=== PATIENT | female | born 1980 | race Caucasian/White ===

== ENCOUNTER 2017-05-10 21:26 | Inpatient (IN) | payer MEDICARE, MEDICAID ==
[2017-05-10] MEDS ORDERED: Albuterol Sulfate 2.5 mg/3 ml Neb ONE (21:37)
[2017-05-10] MEDS ORDERED: Albuterol Sulfate 2.5 mg/0.5 ml Neb ONE ×2 (21:37→21:38)
[2017-05-10] MEDS ORDERED: Albuterol Sulfate 1.25 MG/3 ML NEB ONE (21:38)
[2017-05-10 21:53] LABS: Sodium 138 mmol/L (135-148)
[2017-05-10 21:54] LABS: Mode BIPAP; Modified Allen's Test POSITIVE; Pressure Support 10 cmH2O
[2017-05-10] MEDS ORDERED: Dexamethasone 4 mg/ml Vial ONE (22:29)
[2017-05-10] MEDS ORDERED: Magnesium Sulfate 2 GM/100 ML BAG ONE (22:29)
[2017-05-10 22:45] LABS: PTT 26.1 SEC (22.9-36.1); Prothrombin Time 13.7 SEC (12.0-14.7)
[2017-05-10] MEDS ORDERED: Ondansetron HCl/PF 4 MG/2 ML Vial ONE (22:52)
[2017-05-10 22:56] LABS: Hematocrit 43.3 % (36.0-47.0); Mean Platelet Volume 9.8 fL (7.4-10.4); Red Blood Cell (RBC) Count 4.69 mill/uL (4.20-5.40); White Blood Cell (WBC) Count 23.8 thou/uL (4.8-10.8)
[2017-05-10 23:00] LABS: ALT (SGPT) 33 U/L (8-55); AST (SGOT) 21 U/L (5-34); Alkaline Phosphatase 109 U/L (40-150); Anion Gap 19 mmol/L (10-20); BUN (Urea Nitrogen) 24 mg/dL (7.0-18.7); Bilirubin, Total 0.2 mg/dL (0.2-1.2); CK (CPK) 105 U/L (29-168); Calc. Creatinine Clearance 0 mL/min (70-130); Calcium 9.4 mg/dL (7.8-10.44); Carbon Dioxide 22 mmol/L (22-29); Chloride 97 mmol/L (98-107); Estimated GFR-MDRD 40; Globulin 3.4 g/dL (2.4-3.5); Lipase 22 U/L (8-78); Protein, Total 7.5 g/dL (6.0-8.3)
[2017-05-10 23:03] LABS: Band 5 % (5-11); Neutrophil 84 % (42-75); Troponin I Less than 0.010 ng/mL (< 0.028)
--- NOTE | 2017-05-10 23:10 | RAD ---
EXAM: ONE VIEW CHEST 05/10/17 COMPARISON: 04/07/17 HISTORY: Dyspnea. FINDINGS: Normal cardiac silhouette. Pulmonary vessels and hilum are normal. No mass. No consolidation. No pne umothorax or osseous abnormalities. Lungs are hyperinflated. IMPRESSION: 1. No acute cardiopulmonary process. 2. Hyperinflation. COPD. POS: [facility]
[2017-05-10] MEDS ORDERED: Insulin Regular 300 UNITS/3 ML VIAL ONE (23:42)
[2017-05-11] MEDS ORDERED: Ondansetron HCl/PF 4 MG/2 ML Vial IVP PRN (00:56)
[2017-05-11] MEDS ORDERED: Sodium Chloride 0.9% 1,000 ML IV SCH (00:56)
[2017-05-11] MEDS ORDERED: Ondansetron ODT 4 MG TAB SL PRN (00:56)
[2017-05-11] MEDS ORDERED: Dextrose 50% Abboject 50 ML SYRINGE IVP PRN (01:39)
[2017-05-11] MEDS ORDERED: Dextrose 5% in Water 1,000 ML IV PRN (01:39)
[2017-05-11] MEDS ORDERED: HumaLOG 300 UNITS/3 ML VIAL SC PRN (01:39)
[2017-05-11 01:55] VITALS: BMI 39.9
[2017-05-11] MEDS: Levothyroxine Sodium 175 MCG TAB PO SCH (06:15)
[2017-05-11] MEDS: Mometasone/Formoterol 120 PUFF INHALER INH SCH ×2 (06:57→18:41)
[2017-05-11] MEDS ORDERED: Dexamethasone 10 MG/ML VIAL SLOW IVP SCH (09:00)
[2017-05-11] MEDS: Fluticasone Propionate Nasal Spray 16 gm Bottle NASAL SCH (09:36)
[2017-05-11] MEDS: Furosemide 40 MG TAB PO SCH (09:37)
[2017-05-11] MEDS: Gabapentin 100 MG CAP PO SCH ×3 (09:37→20:05)
[2017-05-11] MEDS: Lisinopril 10 MG TAB PO SCH (09:39)
[2017-05-11] MEDS ORDERED: HYDROcodone/Acetaminophen 10/325 mg Tablet PO PRN ×2 (10:46)
--- NOTE | 2017-05-11 11:11 | CON ---
DATE OF CONSULTATION: 05/11/2017 CONSULTING PHYSICIAN: Dr. High. REASON FOR CONSULTATION: Acute respiratory failure related to COPD exacerbation. HISTORY OF PRESENT ILLNESS: The patient presented to the hospital last night with shortness of pat th. She called 911 and EMS insisted that she will be transported. She was briefly on BiPAP in the ER, but has not been on BiPAP since coming to the floor. She states she feels better this morning a nd she wants to go home. PAST MEDICAL HISTORY: 1. COPD/asthma. 2. Tobacco abuse. 3. Bronchitis. 4. Hypertension. 5. Diabetes mellitus. 6. Hypothyroidism. 7. Hyperlipidemia. 8. Seizure disorder. PAST SURGICAL HISTORY: None. ALLERGIES: Multiple and include CEPHALOSPORINS, AMOXICILLIN, ASPIRIN, PENICILLIN, SHELLFISH, SULFA DRUGS. MEDICATIONS PRIOR TO ADMISSION: Albuterol, Zoloft, potassium chloride, furosemide, Synthroid, glipi zide, lisinopril, metformin, levothyroxine, Dilantin, iron, Risperdal, Valium. SOCIAL HISTORY: Smokes one half pack per day, previously smoked more, does not consume alcohol, and does not use illicit drugs. FAMILY MEDICAL HISTORY: Unremarkable. REVIEW OF SYSTEMS: Otherwise, negative. PHYSICAL EXAMINATION: VITAL SIGNS: Temperature 98.2, pulse 104, respirations 20, O2 sat 91% on nasal cannula, and blood p ressure 110/94. GENERAL: She is awake, alert, sitting up in no distress. HEENT: Unremarkable. NECK: No JVD. CHEST: Bilateral diffuse mild wheezing. CARDIAC: S1, S2 regular. ABDOMEN: Soft. EXTREMITIES: No clubbing, cyanosis or edema. IMAGING: Chest x-ray shows no mass, effusion or infiltrate. LABORATORY DATA: Blood gas; pH 7.37, pCO2 of 45, pO2 of 224. White blood cell count 23, hematocrit 43, platelet count 179. Sodium 134, potassium 4.4, chloride 97, CO2 22, BUN 24, creatinine 1.7, an d glucose 430. ASSESSMENT: 1. Chronic obstructive pulmonary disease with exacerbation. 2. Acute respiratory failure, which has improved. 3. Tobacco abuse. 4. Diabetes mellitus. 5. History of seizure disorder. PLAN: 1. She can be transferred to the medical floor. 2. Decrease IV steroid dose. 3. Sliding scale insulin. 4. Switch vancomycin to Zithromax as I see no clear indication for the vancomycin at this time. 5. Hopefully home soon. I will inform Dr. Phillips of the patient's hospitalization.
[2017-05-11] MEDS: Azithromycin 250 MG TAB PO SCH (11:55)
[2017-05-11] MEDS: HumaLOG 300 UNITS/3 ML VIAL SC PRN ×3 (11:56→20:08)
[2017-05-11] MEDS: Triamcinolone 0.1% Dental Paste 5 GM TUBE TOP SCH ×2 (12:00→20:31)
[2017-05-11] MEDS ORDERED: Vancomycin HCl 1 GM in Premix Bag 1 BAG IVPB SCH (12:00)
--- NOTE | 2017-05-11 14:58 | HP ---
CHIEF COMPLAINT: Shortness of breath and respiratory failure. HISTORY OF PRESENT ILLNESS: Ms. Avila is a 36-year-old female with past medical history of bronchial asthma, hypertension and diabetes mellitus, developed shortness of breath and got worse quickly. Patient has been having some dental problems, has seen the dentist and was told she has a dental infection from a broken tooth. She is supposed see an oral surgeon as well. She was prescribed an antibiotic and pain medication, but she started having shortness of breath and cough, which got worse. Cough is productive with whitish sputum, also has some nausea and fever. She started wheezing and she claims she is taking her nebulizer treatments and inhaler, but it got worse. The symptoms started of sudden onset, so EMS was called. The patient was found to be in respiratory failure. She was put on BiPAP and with markedly expiratory wheezing in the lungs. In the ER, the patient also received antibiotic Levaquin, vancomycin, neb treatments, Zofran and magnesium sulfate, given Decadron IV push and admitted for further evaluation and management. PAST MEDICAL HISTORY: 1. Bronchial asthma. 2. Hypertension. 3. Diabetes mellitus. 4. Hypothyroidism. 5. Bipolar disorder. 6. History of seizure disorder. 7. Tobacco abuse. PAST SURGICAL HISTORY: Nothing significant. CURRENT MEDICATIONS: The patient is on Symbicort 160/4.5 two puffs b.i.d., Nexium 40 mg daily, Flonase nasal spray daily, Lasix 40 mg daily, gabapentin 100 mg t.i.d., levothyroxine 175 mcg daily, lisinopril 10 mg daily, Singulair 10 mg daily and Seroquel 100 mg at bedtime. ALLERGIES: Multiple, includes PENICILLIN, CEPHALOSPORINS, SHELLFISH and ASPIRIN. FAMILY HISTORY: Nothing significant. SOCIAL HISTORY: The patient lives with family. No history of alcohol. She smokes half pack a day. REVIEW OF SYSTEMS: Cardiovascular: Has no chest pain, no shortness of breath. Respiratory: Has cough productive of whitish sputum. Had mild fever. Gastrointestinal: Has nausea. No vomiting. Genitourinary: No dysuria or hematuria. Central Nervous System: No headache, no dizziness. PHYSICAL EXAMINATION: GENERAL: The patient is alert, awake and oriented x3. VITAL SIGNS: Temperature 98, pulse 102, respirations 24 and blood pressure 134/ 74. HEENT: Head is normocephalic and atraumatic. Pupils are equal and reactive. Nasopharynx is pale and dry. Hard and soft palate. No lesions seen. SKIN: Turgor is decreased. NECK: Supple. No JVD. LUNGS: Breath sounds diminished bilaterally. Expiratory wheeze present bilaterally. HEART: S1 and S2 regular. Tachycardic. ABDOMEN: Soft. No distention, no tenderness. Normal bowel sounds. RECTAL: Deferred. CENTRAL NERVOUS SYSTEM: No focal deficits. LABORATORY AND IMAGING DATA: CBC shows WBC of 23,000, hemoglobin 14, hematocrit 43 and platelets 179. Metabolic panel: Sodium 134, potassium 4.4, chloride 107, CO2 of 20, BUN 24, creatinine 1.4 and glucose 430. ABG shows pH of 7.3, pCO2 of 45, pO2 of 224 and saturation 99%. EKG shows sinus tachycardia. No acute ST-T wave changes seen. Chest x-ray; no acute cardiopulmonary process, changes of COPD seen with hyperinflation. ASSESSMENT: 1. Acute on chronic respiratory failure. 2. Chronic obstructive pulmonary disease versus bronchial asthma exacerbation. 3. Hypoxia. 4. Diabetes mellitus, uncontrolled. 5. Hypertension. 6. Hypothyroidism. 7. Dental infection. PLAN: 1. Vital signs q.4 hours. 2. Activity: As tolerated. 3. Allergies: PENICILLIN, SULFA and CEPHALOSPORINS. 4. Diet: ADA. 5. DuoNeb 1 unit q.4 hours. 6. Solu-Medrol 20 IVP q.6 hours. 7. Mucinex 600 mg b.i.d. 8. Continue her home medications. 9. Zithromax daily. 10. Accu-Chek a.c. and at bedtime. 11. Sliding scale mild with regular insulin. MTDD
[2017-05-11] MEDS: guaiFENesin ER 600 MG TAB PO SCH (20:05)
[2017-05-11] MEDS: Montelukast Sodium 10 mg Tablet PO SCH (20:05)
[2017-05-11] MEDS: Ketotifen Fumarate 0.025% Ophth Soln 5 ml Bottle EA EYE SCH (20:31)
[2017-05-11] MEDS ORDERED: Milk Of Magnesia 30 ML UDCUP PO PRN (20:56)
[2017-05-11] MEDS ORDERED: HumaLOG 300 UNITS/3 ML VIAL SC SCH (21:00)
[2017-05-12] MEDS: Aluminum & Magnesium Hydroxide 60 ML, Lidocaine 2% Viscous Solution 30 ML, diphenhydrAM... SSW PRN ×12 (02:00→23:03)
[2017-05-12 05:15] LABS: #Eosinphils 0.1 thou/uL (0.0-0.7); #Lymphocytes 1.1 thou/uL (1.20-3.40); #Neutrophils 15.6 thou/uL (1.40-6.50); %Eosinophils 0.6 % (0.0-10.0); %Lymphocytes 6.1 % (21.0-51.0); %Monocytes 5.5 % (0.0-10.0); Hematocrit 38.7 % (36.0-47.0); Mean Platelet Volume 10.3 fL (7.4-10.4); Red Blood Cell (RBC) Count 4.15 mill/uL (4.20-5.40); White Blood Cell (WBC) Count 17.8 thou/uL (4.8-10.8)
[2017-05-12] MEDS: Levothyroxine Sodium 175 MCG TAB PO SCH (05:40)
[2017-05-12] MEDS: HumaLOG 300 UNITS/3 ML VIAL SC PRN ×4 (05:40→21:33)
[2017-05-12] MEDS: Mometasone/Formoterol 120 PUFF INHALER INH SCH ×2 (07:29→18:04)
[2017-05-12] MEDS: Fluticasone Propionate Nasal Spray 16 gm Bottle NASAL SCH (09:42)
[2017-05-12] MEDS: Lisinopril 10 MG TAB PO SCH (09:43)
[2017-05-12] MEDS: Gabapentin 100 MG CAP PO SCH ×3 (09:43→21:23)
[2017-05-12] MEDS: Ketotifen Fumarate 0.025% Ophth Soln 5 ml Bottle EA EYE SCH ×2 (09:43→21:24)
[2017-05-12] MEDS: Furosemide 40 MG TAB PO SCH (09:43)
[2017-05-12] MEDS: guaiFENesin ER 600 MG TAB PO SCH ×2 (09:43→21:23)
[2017-05-12] MEDS: Triamcinolone 0.1% Dental Paste 5 GM TUBE TOP SCH ×3 (09:44→21:24)
--- NOTE | 2017-05-12 10:25 | PRG ---
DATE OF SERVICE: 05/12/2017 SUBJECTIVE: The patient says she feels tight in the chest, think she needs a couple more days in [facility]. PHYSICAL EXAMINATION: VITAL SIGNS: Temperature is 98.5, pulse 75, blood pressure 112/67, O2 sat 94%. HEENT: Unremarkable. NECK: No JVD. CHEST: Diffuse bilateral wheezing. CARDIAC: S1 and S2 regular. ABDOMEN: Soft. EXTREMITIES: No edema. LABORATORY DATA: White blood cell count 17.8, hematocrit 38.7, platelet count 158. ASSESSMENT: Chronic obstructive pulmonary disease with exacerbation. PLAN: Continue nebulization treatments, antibiotics and IV steroids. Dr. Phillips will reassume her ca re tomorrow.
[2017-05-12] MEDS: Azithromycin 250 MG TAB PO SCH (11:47)
[2017-05-12] MEDS: Montelukast Sodium 10 mg Tablet PO SCH (21:23)
[2017-05-12] MEDS: HYDROcodone/Acetaminophen 5/325 mg Tablet PO PRN (21:25)
[2017-05-13] MEDS: Levothyroxine Sodium 175 MCG TAB PO SCH (05:51)
[2017-05-13] MEDS: HumaLOG 300 UNITS/3 ML VIAL SC PRN ×4 (05:57→20:26)
[2017-05-13] MEDS: Mometasone/Formoterol 120 PUFF INHALER INH SCH ×2 (05:58→18:19)
[2017-05-13] MEDS: Aluminum & Magnesium Hydroxide 60 ML, Lidocaine 2% Viscous Solution 30 ML, diphenhydrAM... SSW PRN ×9 (06:12→20:22)
[2017-05-13] MEDS: Furosemide 40 MG TAB PO SCH (08:40)
[2017-05-13] MEDS: Lisinopril 10 MG TAB PO SCH (08:41)
[2017-05-13] MEDS: guaiFENesin ER 600 MG TAB PO SCH ×2 (08:41→20:21)
[2017-05-13] MEDS: Gabapentin 100 MG CAP PO SCH ×3 (08:41→20:21)
[2017-05-13] MEDS: Triamcinolone 0.1% Dental Paste 5 GM TUBE TOP SCH ×3 (08:43→20:22)
[2017-05-13] MEDS: Fluticasone Propionate Nasal Spray 16 gm Bottle NASAL SCH (08:44)
[2017-05-13] MEDS: Ketotifen Fumarate 0.025% Ophth Soln 5 ml Bottle EA EYE SCH ×2 (08:46→20:22)
--- NOTE | 2017-05-13 09:55 | PRG ---
DATE OF SERVICE: 05/13/2017 This morning, she is better, still coughing, still wheezing. She said she is still smoking. PHYSICAL EXAMINATION: VITAL SIGNS: Sats are 94% on 2 liters, pulse 102, blood pressure 100/80. CHEST: Chest revealed extensive wheezing and rhonchi. CARDIAC: Sinus tachycardia. ABDOMEN: Soft, no masses. IMPRESSION: Chronic obstructive pulmonary disease, bronchitis secondary to exacerbation. PLAN: Continue steroids. Continue neb treatments. She is to refrain from smoking. I will follow.
[2017-05-13] MEDS: Azithromycin 250 MG TAB PO SCH (12:11)
[2017-05-13] MEDS: Montelukast Sodium 10 mg Tablet PO SCH (20:21)
[2017-05-13] MEDS: HYDROcodone/Acetaminophen 5/325 mg Tablet PO PRN (20:25)
[2017-05-13] MEDS ORDERED: Melatonin 3 MG TAB PO SCH (21:00)
[2017-05-14] MEDS: HumaLOG 300 UNITS/3 ML VIAL SC PRN (05:18)
[2017-05-14] MEDS: Levothyroxine Sodium 175 MCG TAB PO SCH (05:18)
[2017-05-14] MEDS: Aluminum & Magnesium Hydroxide 60 ML, Lidocaine 2% Viscous Solution 30 ML, diphenhydrAM... SSW PRN ×6 (05:28→11:06)
[2017-05-14] MEDS: Mometasone/Formoterol 120 PUFF INHALER INH SCH (05:59)
[2017-05-14 07:17] VITALS: BP 120/84; TEMP 98.6
[2017-05-14] MEDS ORDERED: predniSONE 20 MG TAB PO SCH (08:00)
[2017-05-14] MEDS: Gabapentin 100 MG CAP PO SCH (08:05)
[2017-05-14] MEDS: guaiFENesin ER 600 MG TAB PO SCH (08:05)
[2017-05-14] MEDS: Lisinopril 10 MG TAB PO SCH (08:05)
[2017-05-14] MEDS: Furosemide 40 MG TAB PO SCH (08:05)
[2017-05-14] MEDS: Triamcinolone 0.1% Dental Paste 5 GM TUBE TOP SCH (08:07)
[2017-05-14] MEDS: Ketotifen Fumarate 0.025% Ophth Soln 5 ml Bottle EA EYE SCH (08:07)
[2017-05-14] MEDS: Fluticasone Propionate Nasal Spray 16 gm Bottle NASAL SCH (08:07)
--- NOTE | 2017-05-14 08:54 | PRG ---
DATE OF SERVICE: 05/14/2017 She is better, awake, alert, responsive. Eager to go home. PHYSICAL EXAMINATION: VITAL SIGNS: Blood pressure is 120/80, pulse is 90, temperature 98, respirations 18. CHEST: Chest revealed decreased breath sounds, occasional wheeze. CARDIAC: Normal S1-S2. No gallops. ABDOMEN: Soft. No masses. IMPRESSION: 1. Morbid obesity. 2. Tobacco abuse. 3. Chronic obstructive pulmonary disease. 4. Asthma. 5. Bronchitis exacerbation. PLAN: I agree with tapering dose of prednisone, neb treatments, supportive care. She is to refrain from smoking. She could be discharged home today.
[2017-05-14] MEDS: Azithromycin 250 MG TAB PO SCH (11:06)
--- NOTE | 2017-05-15 14:22 | DIS ---
DATE OF ADMISSION: 05/10/2017 DATE OF DISCHARGE: 05/14/2017 ADMITTING DIAGNOSES: 1. Acute on chronic respiratory failure, chronic obstructive pulmonary disease versus bronchial ast hma exacerbation. 2. Hypoxia. 3. Diabetes mellitus, uncontrolled. 4. Hypertension. 5. Hypothyroidism. 6. Dental infection. FINAL DIAGNOSES: 1. Acute on chronic respiratory failure due to chronic obstructive pulmonary disease exacerbation, improved. 2. Diabetes mellitus, uncontrolled, improved. 3. Tobacco abuse. 4. Hypertension. BRIEF SUMMARY OF HOSPITAL COURSE: Ms. Avila is a 36-year-old female admitted with respira tory distress. The patient was initially on BiPAP for the respiratory failure. She was given nebul izer treatments, Solu-Medrol, Mucinex, and admitted to hospital for further evaluation and managemen t. The patient was continued on BiPAP for the night; later on, it changed to nasal cannula and nebu lizer treatments continued because of severe wheezing. The patient was seen by Pulmonary. The nikia ent was seen by Dr. Salgado. His impression is the patient has COPD exacerbation with respiratory f ailure, suggested to continue with steroids and nebulizer treatments which were continued for the ne xt few days and her wheezing resolved. Her Solu-Medrol was discontinued and changed to prednisone. In view of improvement, the patient was discharged. At the time of discharge, she was stable. Her vital signs were stable. Lungs clear. Heart sounds regular. Abdomen is soft, nontender. Bowel s ounds present. DISCHARGE MEDICATIONS: Include Symbicort 160/4.5 two puffs b.i.d., Singulair 10 mg daily, dental pa carroll Orajel t.i.d., Kenalog Orabase t.i.d., levothyroxine 175 mcg daily, Flonase nasal spray daily, l isinopril 10 mg daily, Lasix 40 mg daily, gabapentin 100 mg t.i.d, Nexium 40 mg daily, [place] p.r.n., prednisone in tapering doses, metformin 500 mg b.i.d., melatonin 5 mg at bedtime, Mucinex 600 b.i.d . for 10 days, DuoNebs q.i.d., Zithromax 2 tablets daily. FOLLOWUP: The patient will come for followup in 2 weeks.
--- NOTE | 2017-05-18 11:44 | EKG ---
Test Reason : Blood Pressure : / mmHG Vent. Rate : 111 BPM Atrial Rate : 111 BPM P-R Int : 136 ms QRS Dur : 092 ms QT Int : 328 ms P-R-T Axes : 067 067 052 degrees QTc Int : 446 ms Sinus tachycardia Possible Left atrial enlargement Nonspecific ST abnormality Abnormal ECG Confirmed by MARILYNN ARAIZA, ABILIO ([id number]), features editor JOSE LUIS ARRIOLA ([id number]) on 05/18/2017 11:44:25 AM Referred By: Confirmed By:ABILIO SUBRAMANIAN MD
== END 2017-05-14 11:58 | disposition home or self-care (01) | DRG 189 ==
LOC: ERS 21:26 → IMCU/EMU 23:15 → T4-B 05-11 13:43
PROVIDERS: ADMIT Internal Medicine; ATTEND Internal Medicine
PROC: 5A09457 Assistance with Respiratory Ventilation, 24-96 Consecutive Hours, Continuous Positive Airway Pressure (ICD-10-PCS; principal; 2017-05-10)
DX: J96.21 Acute and chronic respiratory failure with hypoxia (principal); E11.65 Type 2 diabetes mellitus with hyperglycemia; I10 Essential (primary) hypertension; Z68.41 Body mass index [BMI] 40.0-44.9, adult; J44.1 Chronic obstructive pulmonary disease with (acute) exacerbation; J45.909 Unspecified asthma, uncomplicated; G40.909 Epilepsy, unspecified, not intractable, without status epilepticus; E03.9 Hypothyroidism, unspecified; K04.7 Periapical abscess without sinus; E66.01 Morbid (severe) obesity due to excess calories; F17.210 Nicotine dependence, cigarettes, uncomplicated; Z88.8 Allergy status to other drugs, medicaments and biological substances; Z88.0 Allergy status to penicillin; Z91.013 Allergy to seafood; Z88.2 Allergy status to sulfonamides
CPT/HCPCS: 36415; 36416; 71010; 80053; 82553; 82805; 83690; 83880; 84484; 85025; 85610; 85730; 87040; 93005; 94644; 94660; 94760; 96365; 96375; A4216; J1100; J1815; J1956; J2405; J2920; J3370; J3475; J7506; J7611; J7620

== ENCOUNTER 2017-07-10 05:45 | Emergency (ER) | payer MEDICARE, OTHER ==
[2017-07-10 06:35] LABS: #Basophils 0.1 thou/uL (0.0-0.2); #Eosinphils 0.4 thou/uL (0.0-0.7); #Lymphocytes 3.2 thou/uL (1.20-3.40); #Monocytes 0.5 thou/uL (0.11-0.59); #Neutrophils 6.3 thou/uL (1.40-6.50); %Basophils 0.5 % (0.0-1.0); %Eosinophils 3.6 % (0.0-10.0); %Lymphocytes 30.2 % (21.0-51.0); Hematocrit 38.7 % (36.0-47.0); Mean Platelet Volume 9.2 fL (7.4-10.4); Red Blood Cell (RBC) Count 4.22 mill/uL (4.20-5.40); White Blood Cell (WBC) Count 10.5 thou/uL (4.8-10.8)
[2017-07-10 06:59] LABS: ALT (SGPT) 19 U/L (8-55); AST (SGOT) 18 U/L (5-34); Alkaline Phosphatase 72 U/L (40-150); Anion Gap 13 mmol/L (10-20); BUN (Urea Nitrogen) 11 mg/dL (7.0-18.7); Bilirubin, Total 0.2 mg/dL (0.2-1.2); CK (CPK) 191 U/L (29-168); Calc. Creatinine Clearance 0 mL/min (70-130); Calcium 9.2 mg/dL (7.8-10.44); Carbon Dioxide 27 mmol/L (22-29); Chloride 101 mmol/L (98-107); Estimated GFR-MDRD 55; Globulin 2.9 g/dL (2.4-3.5); Protein, Total 6.6 g/dL (6.0-8.3)
[2017-07-10 07:03] LABS: Troponin I Less than 0.010 ng/mL (< 0.028)
[2017-07-10] MEDS ORDERED: methylPREDNISolone Sod Succ/PF 125 MG/2 ML VIAL ONE (07:32)
[2017-07-10] MEDS ORDERED: Water For Inject, Bacteriostat 30 ML ONE (07:32)
--- NOTE | 2017-07-10 08:35 | RAD ---
RADIOGRAPH CHEST 1 VIEW: HISTORY: 36-year-old female with dyspnea. FINDINGS: There is no air space density, pulmonary edema, or pneumothorax. The lateral costophrenic angles are sharp. IMPRESSION: No acute pulmonary findings. jn [] POS: [facility]
[2017-07-10] MEDS ORDERED: predniSONE 20 MG TAB ONE (09:04)
== END 2017-07-10 09:43 | disposition home or self-care (01) ==
LOC: ERS 05:45
DX: J44.1 Chronic obstructive pulmonary disease with (acute) exacerbation (principal); E11.40 Type 2 diabetes mellitus with diabetic neuropathy, unspecified; E03.9 Hypothyroidism, unspecified; E78.5 Hyperlipidemia, unspecified; E66.9 Obesity, unspecified; F31.9 Bipolar disorder, unspecified; F41.9 Anxiety disorder, unspecified; F17.210 Nicotine dependence, cigarettes, uncomplicated; I10 Essential (primary) hypertension; Z79.84 Long term (current) use of oral hypoglycemic drugs; Z79.899 Other long term (current) drug therapy
CPT/HCPCS: 36415; 71010; 80053; 82550; 82553; 83880; 84484; 85025; 93005; 94640; 94760; 96374; J2930; J7506; J7620

== ENCOUNTER 2017-08-30 01:25 | Emergency (ER) | payer MEDICARE, OTHER ==
[2017-08-30] MEDS ORDERED: Morphine 4 MG/ML Carpuject ONE (02:41)
[2017-08-30] MEDS ORDERED: Ketorolac Tromethamine 30 MG/ML VIAL ONE (02:41)
[2017-08-30] MEDS ORDERED: Morphine 2 MG/ML SYRINGE ONE (02:41)
[2017-08-30] MEDS ORDERED: Lidocaine 1% (PF) 30 ML VIAL ONE (03:01)
--- NOTE | 2017-08-30 07:31 | RAD ---
3 VIEWS LEFT SHOULDER: Date: 08/30/17 COMPARISON: 10/15/08. HISTORY: Left shoulder pain after falling off her counter hanging curtains. FINDINGS: Three views of the left shoulder show a comminuted fracture of the humeral head. There may be subluxa tion of the glenohumeral joint in the anterior direction. IMPRESSION: Comminuted left humeral head fracture. POS: [facility]
--- NOTE | 2017-08-30 07:33 | RAD ---
2 VIEWS LEFT SHOULDER: Date: 08/30/17 COMPARISON: 02/26/08 and 08/30/17. FINDINGS: Two views of the left shoulder show irregularity of the humerus on the anterior radiograph, which is difficult to appreciate on the transscapular Y view. There is likely a fracture of the proximal aspec t of the humerus. No obvious dislocation is seen on the transscapular Y view. IMPRESSION: Fracture of the proximal aspect of the humerus. This is comminuted and may be through the humeral hea d. This could also be a fracture of the greater tuberosity. POS: [facility]
--- NOTE | 2017-08-30 07:54 | RAD ---
TWO VIEWS OF THE LEFT SHOULDER: COMPARISON: 08/30/17 at 2:17 a.m. FINDINGS: Two views of the left shoulder show a fracture of the proximal aspect of the humerus. This fracture may represent a fracture through the neck or greater tuberosity. No obvious dislocation is seen on t he transscapular Y view. IMPRESSION: Proximal left humeral fracture. POS: [facility]
== END 2017-08-30 05:55 | disposition home or self-care (01) ==
LOC: ERS 01:25
DX: S43.015A Anterior dislocation of left humerus, initial encounter (principal); I10 Essential (primary) hypertension; J44.9 Chronic obstructive pulmonary disease, unspecified; E03.9 Hypothyroidism, unspecified; E66.9 Obesity, unspecified; E11.9 Type 2 diabetes mellitus without complications; F31.9 Bipolar disorder, unspecified; F41.9 Anxiety disorder, unspecified; F17.210 Nicotine dependence, cigarettes, uncomplicated; W17.89XA Other fall from one level to another, initial encounter
CPT/HCPCS: 96374; 96375; J1885; J2001; J2270

== ENCOUNTER 2017-09-28 20:05 | Emergency (ER) | payer MEDICARE, OTHER ==
[2017-09-28] MEDS ORDERED: Ibuprofen 800 MG TAB ONE (20:38)
[2017-09-28 20:39] LABS: #Basophils 0.1 thou/uL (0.0-0.2); #Eosinphils 0.3 thou/uL (0.0-0.7); #Lymphocytes 3.4 thou/uL (1.20-3.40); #Monocytes 0.9 thou/uL (0.11-0.59); #Neutrophils 9.7 thou/uL (1.40-6.50); %Basophils 0.4 % (0.0-1.0); %Lymphocytes 23.7 % (21.0-51.0); %Monocytes 6.2 % (0.0-10.0); %Neutrophils 67.6 % (42.0-75.0); Hemoglobin 14.9 g/dL (12.0-16.0); Mean Corpuscular HGB CONC 34.6 g/dL (32.0-36.0); Mean Corpuscular Hemoglobin 31.9 pg (27.0-31.0); Mean Corpuscular Volume 92.1 fl (81.0-99.0); Mean Platelet Volume 9.8 fL (7.4-10.4); Platelet Count 169 thou/uL (130-400); RBC Distribution Width 13.4 % (11.5-14.5); Red Blood Cell (RBC) Count 4.66 mill/uL (4.20-5.40); White Blood Cell (WBC) Count 14.4 thou/uL (4.8-10.8)
[2017-09-28 21:01] LABS: ALT (SGPT) 22 U/L (8-55); AST (SGOT) 18 U/L (5-34); Albumin 4.1 g/dL (3.5-5.0); Alkaline Phosphatase 87 U/L (40-150); Anion Gap 15 mmol/L (10-20); BUN (Urea Nitrogen) 20 mg/dL (7.0-18.7); Bilirubin, Total 0.3 mg/dL (0.2-1.2); Calc. Creatinine Clearance 0 mL/min (70-130); Calcium 8.9 mg/dL (7.8-10.44); Carbon Dioxide 27 mmol/L (22-29); Chloride 98 mmol/L (98-107); Estimated GFR-MDRD 52; Glucose 107 mg/dL (70-105); Potassium 3.7 mmol/L (3.5-5.1); Protein, Total 7.1 g/dL (6.0-8.3); Sodium 136 mmol/L (136-145)
[2017-09-28] MEDS ORDERED: Albuterol Sulfate 2.5 mg/3 ml Neb ONE ×2 (21:01)
[2017-09-28 21:15] LABS: Bilirubin Negative (Negative); Blood, Urine Trace (Negative); Clarity CLEAR (Clear); Glucose, Urine (Dipstick) Negative (Negative); Leukocyte Moderate (Negative); Nitrite Negative (Negative); Protein, Urine (Dipstick) Negative (Neg-Trace); Specific Gravity, Urine 1.015 (1.002-1.036); Urobilinogen 0.2 mg/dL (0.2-1.0)
[2017-09-28 21:17] LABS: Bacteria/HPF Rare-Few HPF (None Seen); Hyaline Casts/LPF 0-3 HYALINE CAST LPF (0-3 Hyaline); Pathc Cast-AUWi Flag 0.13 (0-2.49); Squamous Epithelial 0-3 HPF (0-3)
[2017-09-28 21:18] LABS: Pregnancy Test - Urine (BHCG) Negative (Negative); Pregu Control Background? CLEAR/WHITE (CLR/WHITE); Pregu Control Bar Appear? YES (CONTROL BAR); Specific Gravity 1.015 (1.002-1.036)
[2017-09-28 21:26] LABS: Amphetamine Not Detected (NotDetected); Barbiturates Screen Not Detected (NotDetected); Benzodiazepine Screen Not Detected (NotDetected); Cocaine Metabolite Screen Not Detected (NotDetected); Medtox Control Line Valid? VALID (VALID); Medtox Reader # READER 1; Methadone Not Detected (NotDetected); Methamphetamine Not Detected (NotDetected); Opiate Screen Not Detected (NotDetected); Oxycodone Screen Not Detected (NotDetected); Phencyclidine (PCP) Not Detected (NotDetected); THC/Cannabinoid Screen Not Detected (NotDetected); Tricyclic Screen Not Detected (NotDetected)
[2017-09-28] MEDS ORDERED: hydrOXYzine 25 MG TAB ONE (23:25)
[2017-09-28] MEDS ORDERED: OLANZapine 5 MG TAB ONE (23:25)
[2017-09-28] MEDS ORDERED: Nicotine 21 MG PATCH TOP SCH (23:30)
[2017-09-29 00:37] LABS: Free T4 (Free Thyroxine) 0.6 ng/dL (0.70-1.48)
[2017-09-29] MEDS ORDERED: hydrOXYzine 25 MG TAB ONE (07:20)
[2017-09-29] MEDS ORDERED: OLANZapine 5 MG TAB ONE (10:37)
[2017-09-29] MEDS ORDERED: hydrOXYzine Pamoate 25 mg Capsule ONE (10:38)
[2017-09-29] MEDS ORDERED: Levothyroxine Sodium 100 MCG TAB PO SCH (10:45)
[2017-09-29] MEDS ORDERED: Levalbuterol HCl 1.25 MG/0.5 ML NEB NEB SCH (18:45)
[2017-09-29] MEDS ORDERED: Furosemide 40 MG TAB ONE (20:48)
[2017-09-29] MEDS ORDERED: predniSONE 20 MG TAB ONE (20:48)
[2017-09-29] MEDS ORDERED: Lisinopril 10 MG TAB ONE (20:48)
[2017-09-29] MEDS ORDERED: Fluticasone Propionate Nasal Spray 16 gm Bottle NASAL PRN (21:05)
[2017-09-29] MEDS ORDERED: Nicotine 21 MG PATCH TOP SCH (22:00)
[2017-09-30] MEDS ORDERED: Fioricet 325/50/40 mg Tablet PO PRN (05:19)
[2017-09-30] MEDS ORDERED: hydrOXYzine Pamoate 25 mg Capsule PO PRN (05:20)
[2017-09-30] MEDS ORDERED: risperiDONE 1 MG TAB PO PRN (05:25)
[2017-09-30] MEDS ORDERED: traZODone HCl 50 MG TAB PO PRN (05:27)
[2017-09-30] MEDS ORDERED: Acetaminophen 325 MG TAB PO PRN (05:28)
[2017-09-30] MEDS ORDERED: Ondansetron ODT 4 MG TAB PO PRN (05:32)
[2017-09-30] MEDS ORDERED: predniSONE 20 MG TAB PO SCH (08:00)
--- NOTE | 2017-09-30 08:15 | RAD ---
PORTABLE CHEST 1 VIEW: DATE: 09/30/17. TIME: 2:50 a.m. HISTORY: Chest pain. FINDINGS/IMPRESSION: The heart size is normal. The lungs are expanded without focal areas of consolidation, pneumothorax, or pleural effusions. POS: [facility]
[2017-09-30] MEDS ORDERED: Furosemide 40 MG TAB PO SCH (09:00)
[2017-09-30] MEDS ORDERED: Escitalopram Oxalate 10 mg Tablet PO SCH (09:00)
[2017-09-30] MEDS ORDERED: Ibuprofen 800 MG TAB PO SCH (09:00)
[2017-09-30] MEDS ORDERED: Lisinopril 10 MG TAB PO SCH (09:00)
[2017-09-30] MEDS ORDERED: Furosemide 40 MG TAB ONE (09:15)
[2017-09-30] MEDS ORDERED: predniSONE 20 MG TAB ONE (09:15)
[2017-09-30] MEDS ORDERED: Ibuprofen 800 MG TAB ONE (09:15)
--- NOTE | 2017-10-26 14:22 | EKG ---
Test Reason : CHEST PAIN Blood Pressure : / mmHG Vent. Rate : 118 BPM Atrial Rate : 118 BPM P-R Int : 136 ms QRS Dur : 084 ms QT Int : 316 ms P-R-T Axes : 078 096 068 degrees QTc Int : 442 ms Sinus tachycardia Possible Left atrial enlargement Rightward axis Borderline ECG Confirmed by PILLO Mock, CINDY ([id number]), newspaper managing editor SIGIFREDO ALCANTARA ([id number]) on 10/26/2017 2:21:29 PM Referred By: CORINA FERRO Confirmed By:CINDY FERRO M.D.
== END 2017-09-30 15:20 | disposition home or self-care (01) ==
LOC: ERS 20:05
DX: F32.9 Major depressive disorder, single episode, unspecified (principal); R45.850 Homicidal ideations; E78.5 Hyperlipidemia, unspecified; J44.9 Chronic obstructive pulmonary disease, unspecified; I10 Essential (primary) hypertension; E03.9 Hypothyroidism, unspecified; E66.9 Obesity, unspecified; E11.9 Type 2 diabetes mellitus without complications; F31.9 Bipolar disorder, unspecified; G40.909 Epilepsy, unspecified, not intractable, without status epilepticus; F41.9 Anxiety disorder, unspecified; F17.210 Nicotine dependence, cigarettes, uncomplicated; Z79.899 Other long term (current) drug therapy
CPT/HCPCS: 36415; 71045; 80053; 80306; 81003; 81015; 81025; 84439; 84443; 84481; 85025; 93005; 94640; 99406; J7506; J7611; J7612; J7620; Q0177

== ENCOUNTER 2017-10-10 11:29 | Outpatient (CLI) | payer MEDICARE, OTHER ==
--- NOTE | 2017-10-10 13:04 | RAD ---
THREE VIEWS LEFT SHOULDER: Date: 10-10-17 History: Left shoulder pain. Comparison: 08-30-17 FINDINGS: There is a fracture involving the greater tuberosity of the left humerus. Fracture of the left humeru s was also seen on prior exam. No significant callus formation is seen about the fracture. No additio nal fracture is seen and there is no dislocation. Coracoclavicular and acromioclavicular distances ar e within normal limits. No other osseous abnormality. IMPRESSION: Fracture of the left greater tuberosity of the humerus which was also present on the prior exam. No s ignificant callus formation is seen about the fracture. No new fracture or dislocation is seen. POS: [facility]
== END 2017-10-10 11:30 | disposition home or self-care (01) ==
LOC: RAD-FRANK 11:29
PROVIDERS: ATTEND Internal Medicine
DX: J40 Bronchitis, not specified as acute or chronic (principal); S42.252D Displaced fracture of greater tuberosity of left humerus, subsequent encounter for fracture with routine healing

== ENCOUNTER 2017-11-05 01:47 | Emergency (ER) | payer MEDICARE, OTHER ==
[2017-11-05] MEDS ORDERED: Water For Inject, Bacteriostat 30 ML ONE (02:31)
[2017-11-05] MEDS ORDERED: methylPREDNISolone Sod Succ/PF 125 MG/2 ML VIAL ONE (02:31)
[2017-11-05] MEDS ORDERED: Magnesium Sulfate 2 GM/100 ML BAG ONE (02:31)
[2017-11-05 03:05] LABS: ALT (SGPT) 33 U/L (8-55); AST (SGOT) 17 U/L (5-34); Alkaline Phosphatase 91 U/L (40-150); Anion Gap 17 mmol/L (10-20); BUN (Urea Nitrogen) 32 mg/dL (7.0-18.7); Bilirubin, Total 0.2 mg/dL (0.2-1.2); CK (CPK) 133 U/L (29-168); Calc. Creatinine Clearance 0 mL/min (70-130); Calcium 9.3 mg/dL (7.8-10.44); Carbon Dioxide 27 mmol/L (22-29); Chloride 96 mmol/L (98-107); Estimated GFR-MDRD 45; Glucose 265 mg/dL (70-105); Potassium 4.2 mmol/L (3.5-5.1); Sodium 136 mmol/L (136-145)
[2017-11-05 03:09] LABS: CKMB 5.5 ng/mL (0-6.6); Troponin I Less than 0.010 ng/mL (< 0.028)
[2017-11-05 03:23] LABS: Band 2 % (5-11); Hemoglobin 14.8 g/dL (12.0-16.0); Lymphocytes 9 % (21-51); MDiff Complete? YES; Mean Corpuscular HGB CONC 34.4 g/dL (32.0-36.0); Mean Corpuscular Hemoglobin 31.3 pg (27.0-31.0); Mean Corpuscular Volume 90.9 fl (81.0-99.0); Mean Platelet Volume 9.3 fL (7.4-10.4); Monocytes 1 % (0-10); Neutrophil 88 % (42-75); PLT Morphology Comment Appears Adequate; Platelet Count 182 thou/uL (130-400); RBC Distribution Width 13.8 % (11.5-14.5); Red Blood Cell (RBC) Count 4.74 mill/uL (4.20-5.40)
--- NOTE | 2017-11-05 08:04 | RAD ---
CHEST ONE VIEW: History: Dyspnea. Comparison: 09-30-17 FINDINGS: There are some opacities within both lower lobes as well as the lingula. No pneumothorax. Cardiac cindi houette and mediastinal contours are similar. No acute osseous abnormality. IMPRESSION: Multifocal airspace opacity at the lower lobe may reflect multifocal pneumonia in the correct clinica l setting. Recommend follow up two views with full inspiration recommended. POS: [facility]
== END 2017-11-05 04:01 | disposition home or self-care (01) ==
LOC: ERS 01:47
DX: J44.1 Chronic obstructive pulmonary disease with (acute) exacerbation (principal); I10 Essential (primary) hypertension; E03.9 Hypothyroidism, unspecified; F31.9 Bipolar disorder, unspecified; F17.210 Nicotine dependence, cigarettes, uncomplicated; F41.9 Anxiety disorder, unspecified; Z71.6 Tobacco abuse counseling; Z79.899 Other long term (current) drug therapy
CPT/HCPCS: 36415; 71045; 80053; 82553; 83880; 84484; 85025; 87040; 93005; 94760; 96365; 96375; 99406; J2930; J3475

== ENCOUNTER 2017-11-12 07:29 | Emergency (ER) | payer MEDICARE, OTHER ==
[2017-11-12 08:24] LABS: #Eosinphils 0.1 thou/uL (0.0-0.7); #Lymphocytes 1.2 thou/uL (1.20-3.40); #Monocytes 0.7 thou/uL (0.11-0.59); #Neutrophils 6.9 thou/uL (1.40-6.50); %Basophils 0.4 % (0.0-1.0); %Eosinophils 0.8 % (0.0-10.0); %Lymphocytes 13.3 % (21.0-51.0); %Monocytes 7.7 % (0.0-10.0); %Neutrophils 77.8 % (42.0-75.0); Hemoglobin 14.7 g/dL (12.0-16.0); Mean Corpuscular HGB CONC 33.2 g/dL (32.0-36.0); Mean Corpuscular Hemoglobin 30.7 pg (27.0-31.0); Mean Corpuscular Volume 92.5 fl (81.0-99.0); Platelet Count 126 thou/uL (130-400); RBC Distribution Width 13.9 % (11.5-14.5); White Blood Cell (WBC) Count 8.9 thou/uL (4.8-10.8)
[2017-11-12 08:41] LABS: ALT (SGPT) 27 U/L (8-55); AST (SGOT) 22 U/L (5-34); Albumin 3.8 g/dL (3.5-5.0); Alkaline Phosphatase 66 U/L (40-150); Anion Gap 13 mmol/L (10-20); BUN (Urea Nitrogen) 12 mg/dL (7.0-18.7); Bilirubin, Total 0.6 mg/dL (0.2-1.2); Calc. Creatinine Clearance 0 mL/min (70-130); Carbon Dioxide 26 mmol/L (22-29); Chloride 96 mmol/L (98-107); Estimated GFR-MDRD 70; Globulin 2.4 g/dL (2.4-3.5); Glucose 130 mg/dL (70-105); Lipase 18 U/L (8-78); Potassium 3.4 mmol/L (3.5-5.1); Protein, Total 6.2 g/dL (6.0-8.3); Sodium 132 mmol/L (136-145)
[2017-11-12] MEDS ORDERED: Ondansetron HCl/PF 4 MG/2 ML Vial IVP SCH (08:45)
[2017-11-12 09:45] LABS: Bilirubin Negative (Negative); Blood, Urine Negative (Negative); Clarity CLOUDY (Clear); Glucose, Urine (Dipstick) Negative (Negative); Leukocyte Moderate (Negative); Nitrite Negative (Negative); Protein, Urine (Dipstick) Trace mg/dL (Neg-Trace); Specific Gravity, Urine 1.015 (1.002-1.036)
[2017-11-12 09:48] LABS: Pregnancy Test - Urine (BHCG) Negative (Negative); Pregu Control Background? CLEAR/WHITE (CLR/WHITE); Pregu Control Bar Appear? YES (CONTROL BAR); Specific Gravity 1.015 (1.002-1.036)
[2017-11-12 09:56] LABS: Bacteria/HPF 3+ HPF (None Seen); Hyaline Casts/LPF 0-3 HYALINE CAST LPF (0-3 Hyaline); RBC/HPF 0-3 HPF (0-3); Yeast-All Forms 1+ HPF (None Seen)
[2017-11-12 09:57] LABS: Trichomonas/HPF 1+ HPF (None Seen)
[2017-11-13 01:51] LABS: Chlamydia by PCR Not Detected (NotDetected); GC by PCR Not Detected (NotDetected)
== END 2017-11-12 10:53 | disposition home or self-care (01) ==
LOC: ERS 07:29
DX: K52.9 Noninfective gastroenteritis and colitis, unspecified (principal); A59.8 Trichomoniasis of other sites; E78.5 Hyperlipidemia, unspecified; J44.9 Chronic obstructive pulmonary disease, unspecified; E11.9 Type 2 diabetes mellitus without complications; F31.9 Bipolar disorder, unspecified; F17.210 Nicotine dependence, cigarettes, uncomplicated; I10 Essential (primary) hypertension; E03.9 Hypothyroidism, unspecified; E66.9 Obesity, unspecified; F41.9 Anxiety disorder, unspecified; Z79.899 Other long term (current) drug therapy
CPT/HCPCS: 36415; 80053; 81003; 81015; 81025; 83690; 85025; 87480; 87491; 87510; 87591; 87660; 94640; 96360; 96361; 96372; 99406; J7620

== ENCOUNTER 2017-11-30 01:22 | Inpatient (IN) | payer MEDICARE, OTHER ==
[2017-11-30] MEDS ORDERED: Azithromycin 500 MG VIAL ONE (01:50)
[2017-11-30 02:19] LABS: ALT (SGPT) 29 U/L (8-55); AST (SGOT) 18 U/L (5-34); Albumin 4.4 g/dL (3.5-5.0); Alkaline Phosphatase 79 U/L (40-150); Anion Gap 17 mmol/L (10-20); BUN (Urea Nitrogen) 24 mg/dL (7.0-18.7); Bilirubin, Total 0.2 mg/dL (0.2-1.2); CK (CPK) 159 U/L (29-168); Calc. Creatinine Clearance 0 mL/min (70-130); Calcium 9.9 mg/dL (7.8-10.44); Carbon Dioxide 25 mmol/L (22-29); Chloride 99 mmol/L (98-107); Estimated GFR-MDRD 38; Glucose 140 mg/dL (70-105); Protein, Total 7.4 g/dL (6.0-8.3); Sodium 137 mmol/L (136-145)
[2017-11-30 02:20] LABS: Mean Corpuscular HGB CONC 34.4 g/dL (32.0-36.0); Mean Corpuscular Hemoglobin 31.3 pg (27.0-31.0); Mean Platelet Volume 9.8 fL (7.4-10.4); Platelet Count 185 thou/uL (130-400); RBC Distribution Width 13.6 % (11.5-14.5); Red Blood Cell (RBC) Count 4.79 mill/uL (4.20-5.40); White Blood Cell (WBC) Count 23.7 thou/uL (4.8-10.8)
[2017-11-30 02:22] LABS: CKMB 4.4 ng/mL (0-6.6); Troponin I Less than 0.010 ng/mL (< 0.028)
[2017-11-30 02:32] LABS: Band 10 % (5-11); Lymphocytes 7 % (21-51); MDiff Complete? YES; Metamyelocyte 2 % (0-0); Monocytes 4 % (0-10); Neutrophil 73 % (42-75); PLT Morphology Comment Appears Adequate; RBC Morphology Normal; Reactive Lymphocytes 4 % (0-10)
[2017-11-30] MEDS ORDERED: Acetaminophen 325 MG TAB PO PRN (04:20)
[2017-11-30] MEDS ORDERED: Ondansetron ODT 4 MG TAB SL PRN (04:20)
[2017-11-30] MEDS ORDERED: Ondansetron HCl/PF 4 MG/2 ML Vial IVP PRN (04:20)
[2017-11-30] MEDS ORDERED: Sodium Chloride 0.9% 1,000 ML IV SCH (04:20)
[2017-11-30 04:22] VITALS: BMI 39.4
[2017-11-30 06:22] LABS: Lactic Acid 2.2 mmol/L (0.5-2.2)
--- NOTE | 2017-11-30 09:24 | RAD ---
CHEST 1 VIEW: Date: 11/30/17 HISTORY: Cough. COMPARISON: Chest 1 view dated 11/05/17. FINDINGS: There are faint opacities in both lower lobes, similar to the comparison examination. No pneumothorax . Cardiac silhouette and mediastinal contours are similar. IMPRESSION: 1. Similar appearance of the lower lobe opacity. Given the absence of significant change, continuing pneumonia versus chronic lung markings are within the differential. 2. Displaced left greater tuberosity fracture. POS: [facility]
[2017-11-30] MEDS ORDERED: methylPREDNISolone Sod Succ/PF 125 MG/2 ML VIAL IVP SCH (10:30)
[2017-11-30] MEDS: Sodium Chloride 0.9% 1,000 ML IV SCH ×2 (10:38→13:07)
[2017-11-30] MEDS ORDERED: Mometasone/Formoterol 120 PUFF INHALER INH SCH (11:00)
[2017-11-30] MEDS ORDERED: guaiFENesin ER 600 MG TAB PO SCH (11:00)
[2017-11-30] MEDS ORDERED: Ketotifen Fumarate 0.025% Ophth Soln 5 ml Bottle EA EYE SCH (11:00)
[2017-11-30] MEDS ORDERED: Levothyroxine 175 MCG TAB PO SCH (11:00)
[2017-11-30] MEDS ORDERED: Glimepiride 1 MG TAB PO SCH (11:00)
[2017-11-30] MEDS ORDERED: Fluticasone Propionate Nasal Spray 16 gm Bottle NASAL SCH (11:00)
[2017-11-30] MEDS: Ondansetron ODT 4 MG TAB PO PRN (11:16)
[2017-11-30 13:30] LABS: Hemoglobin 13.8 g/dL (12.0-16.0); Mean Corpuscular HGB CONC 34.1 g/dL (32.0-36.0); Mean Corpuscular Hemoglobin 31.8 pg (27.0-31.0); Mean Corpuscular Volume 93.2 fl (81.0-99.0); Mean Platelet Volume 10.1 fL (7.4-10.4); Platelet Count 155 thou/uL (130-400); RBC Distribution Width 13.8 % (11.5-14.5); Red Blood Cell (RBC) Count 4.34 mill/uL (4.20-5.40); White Blood Cell (WBC) Count 19.1 thou/uL (4.8-10.8)
[2017-11-30 13:51] LABS: Anion Gap 12 mmol/L (10-20); BUN (Urea Nitrogen) 21 mg/dL (7.0-18.7); Calc. Creatinine Clearance 101 mL/min (70-130); Calcium 8.3 mg/dL (7.8-10.44); Carbon Dioxide 24 mmol/L (22-29); Chloride 104 mmol/L (98-107); Estimated GFR-MDRD 52; Glucose 132 mg/dL (70-105); Potassium 4.1 mmol/L (3.5-5.1); Sodium 136 mmol/L (136-145)
[2017-11-30 14:01] LABS: Band 10 % (5-11); Large Platelets SLIGHT; Lymphocytes 5 % (21-51); MDiff Complete? YES; Monocytes 4 % (0-10); Neutrophil 79 % (42-75); PLT Morphology Comment Appears Adequate; RBC Morphology Normal; Reactive Lymphocytes 1 % (0-10)
--- NOTE | 2017-11-30 15:01 | CON ---
DATE OF CONSULTATION: 11/30/2017 REASON FOR CONSULTATION: COPD exacerbation. HISTORY OF PRESENT ILLNESS: Ms. Avila is well known to us from previous hospitalizations. Dr. Phillips is taken care of her in the hospital in the past. She came last night with typical symptoms of chron ic obstructive pulmonary disease exacerbation including shortness of breath and congestion. She is c ontinuing to smoke, but has cut down to a half pack per day. PAST MEDICAL HISTORY: 1. Severe COPD requiring home O2 at 2 liters nasal cannula. 2. Bronchitis. 3. Hypertension. 4. Diabetes mellitus. 5. Hypothyroidism. 6. Hyperlipidemia. 7. Seizure disorder. PAST SURGICAL HISTORY: None. ALLERGIES: CEPHALOSPORINS, AMOXICILLIN, ASPIRIN, PENICILLIN, SHELLFISH and SULFA DRUGS. MEDICATIONS: Prior to admission, she was taking Singulair 10 mg daily, prednisone 10 mg daily, Zofra n 4 mg twice daily, lisinopril 10 mg daily, ipratropium/albuterol every 4 hours as needed, Lasix 40 m g daily, fluticasone nasal spray daily, Nexium 40 mg daily, Symbicort 160/4.5 two puffs twice daily a nd levothyroxine 175 mcg daily. REVIEW OF SYSTEMS: A 12-point review of systems was negative. PHYSICAL EXAMINATION: VITAL SIGNS: Temperature 98.2, pulse 97, respirations 18, O2 sat 92% on 3 liters, blood pressure 105 /62. GENERAL: She is awake, alert, in no distress, sitting up, looking at the Internet on her cellphone. HEENT: Unremarkable. NECK: Without adenopathy or JVD. LUNGS: Soft, end expiratory wheezing. CARDIAC: S1, S2 regular. ABDOMEN: Soft. EXTREMITIES: No edema. LABORATORY DATA: White blood cell count 23.7, hematocrit 43.6, platelet count 185,000. Sodium 137, potassium 4, chloride 99, CO2 of 25, BUN 24, creatinine 1.5, glucose 140. Chest x-ray demonstrates h yperinflation without evidence of mass, effusion or infiltrate. ASSESSMENT: 1. Acute respiratory failure related to chronic obstructive pulmonary disease exacerbation. 2. Chronic obstructive pulmonary disease with exacerbation. 3. Tobacco abuse. PLAN: She will be transferred out to the medical floor to continue steroids, nebulization treatments , IV fluids and antibiotics.
[2017-11-30] MEDS: Mometasone/Formoterol 120 PUFF INHALER INH SCH (18:05)
[2017-11-30] MEDS ORDERED: Dextrose 5% in Water 1,000 ML IV PRN (18:49)
[2017-11-30] MEDS ORDERED: Dextrose 50% Abboject 50 ML SYRINGE IVP PRN (18:49)
[2017-11-30] MEDS: Insulin Regular 300 UNITS/3 ML VIAL SC PRN ×2 (19:12→21:06)
[2017-11-30] MEDS: Montelukast Sodium 10 mg Tablet PO SCH (20:51)
[2017-11-30] MEDS: guaiFENesin ER 600 MG TAB PO SCH (20:52)
[2017-11-30] MEDS: Ketotifen Fumarate 0.025% Ophth Soln 5 ml Bottle EA EYE SCH (20:52)
[2017-11-30] MEDS: Fluticasone Propionate Nasal Spray 16 gm Bottle NASAL SCH (21:05)
--- NOTE | 2017-12-01 04:04 | HP ---
DATE OF ADMISSION: 11/30/2017 CHIEF COMPLAINT: Shortness of breath, cough, fever. HISTORY OF PRESENT ILLNESS: Ms. Avila is a 37-year-old female with past medical history of tobacco abuse and COPD came with cough and wheezing going on for a few days. She states she had high fever also about 101-102 at home. She has been taking neb treatments and medications and inhalers, but in spite of that cough, wheezing, and shortness of breath was getting worse. The fever has been intermittent, so she called EMS and came to the emergency room, where she was evaluated and found to be hypotensive, tachycardic, and tachypneic as well. So, she received DuoNeb and also received levofloxacin and azithromycin. She was also found to have acute kidney injury and received a bolus of IV fluids as well. She did not get any steroids. ER physician found that the patient has pneumonia and they admitted her for further evaluation and management. PAST MEDICAL HISTORY: 1. Chronic obstructive pulmonary disease versus bronchial asthma. 2. Hypertension. 3. Diabetes mellitus. 4. Hypothyroidism. 5. Bipolar disorder. 6. Seizure disorder. 7. Current tobacco abuse. PAST SURGICAL HISTORY: Nothing significant. CURRENT MEDICATIONS: The patient is on DuoNeb q.i.d., Amaryl 1 mg daily, Singulair 10 mg daily, prednisone 10 mg daily, lisinopril 10 mg daily, Lasix 40 mg daily, Flonase nasal spray daily, Zofran p.r.n., Nexium 40 mg daily, Symbicort 160/4.5 two puffs b.i.d., levothyroxine 175 mcg daily, ketotifen fumarate eyedrops, and Singulair daily 10 mg. ALLERGIES: CEPHALOSPORIN, AMOXICILLIN, ASPIRIN, PENICILLIN, SHELLFISH, SULFA. FAMILY HISTORY: Nothing of interest. SOCIAL HISTORY: The patient lives with family. No history of alcohol. Currently smokes half pack a day. REVIEW OF SYSTEMS: CARDIOVASCULAR: Has shortness of breath. No chest pain. Respiratory: Has cough and fever, cough productive with yellow sputum. Gastrointestinal: No nausea, vomiting, or abdominal pain. Central nervous system: No headache, no dizziness. PHYSICAL EXAMINATION: GENERAL: The patient is alert, awake, oriented x3. VITAL SIGNS: Temperature 98, pulse 115, respirations 20, blood pressure 95/65. HEENT: Head is normocephalic, atraumatic. Pupils equal and reactive to light. Nasopharynx is pale and dry. Hard and soft palate, no lesions seen. SKIN: Skin turgor decreased. NECK: Supple. No JVD. LUNGS: Breath sounds diminished bilaterally. Percussion dull bilaterally. Expiratory wheeze present. CARDIAC: S1, S2 regular. ABDOMEN: Soft. No distention, no tenderness. No organomegaly. Bowel sounds heard. RECTAL: Deferred. NEUROLOGIC: No focal deficit. EXTREMITIES: No edema LABORATORY AND X-RAY FINDINGS: CBC shows a WBC of 23.7, hemoglobin 15, hematocrit 43, platelets 185. Metabolic panel: Sodium 136, potassium 4, chloride 106, CO2 of 25, urea nitrogen 21, creatinine 1.1, glucose 132. Chest x -ray reported as infiltrates in the lower lung. EKG shows sinus tachycardia with heart rate of 117, no acute ST-T wave changes seen. ASSESSMENT: 1. Acute on chronic respiratory failure, chronic obstructive pulmonary disease versus bronchial asthma, acute exacerbation. 2. Leukocytosis, possibly secondary to steroids. 3. Rule out pneumonia. 4. Tobacco abuse. 5. Diabetes mellitus. 6. Acute kidney injury. 7. Hypertension. 8. Hypothyroidism. PLAN: 1. Vital signs q.4 hours. 2. Activity: As tolerated. 3. Allergies: Multiple. 4. IV fluids: Normal saline 80 ml / hr 5. Levaquin 750 mg IV piggyback daily. 6. DuoNeb 1 unit q.4 hours. 7. Solu-Medrol 40 mg IV piggyback q.6 hours. 8. Mucinex 600 b.i.d. 9. Continue her home medications. 10. Accu-Chek before meals and at bedtime. 11. Sliding scale aggressive with regular insulin. MTDD
[2017-12-01] MEDS: Levothyroxine 175 MCG TAB PO SCH (06:03)
[2017-12-01] MEDS: Insulin Regular 300 UNITS/3 ML VIAL SC PRN ×3 (06:03→20:09)
[2017-12-01] MEDS: Mometasone/Formoterol 120 PUFF INHALER INH SCH ×2 (06:26→22:25)
[2017-12-01] MEDS: Ondansetron ODT 4 MG TAB PO PRN (07:24)
[2017-12-01] MEDS: Ketotifen Fumarate 0.025% Ophth Soln 5 ml Bottle EA EYE SCH ×2 (07:53→20:08)
[2017-12-01] MEDS: guaiFENesin ER 600 MG TAB PO SCH ×2 (07:54→20:08)
[2017-12-01] MEDS ORDERED: Glimepiride 1 MG TAB PO SCH ×2 (08:00→18:30)
[2017-12-01] MEDS ORDERED: Fluticasone Propionate Nasal Spray 16 gm Bottle NASAL SCH (09:00)
--- NOTE | 2017-12-01 12:41 | PRG ---
DATE OF SERVICE: 12/01/2017 SUBJECTIVE: Ms. Avila feels better. She has had periods where she has disappeared from the floor an d is suspected that she is probably going down to smoke. PHYSICAL EXAMINATION: VITAL SIGNS: On exam, temperature 98.4, pulse 100, respiration 16, O2 sat 90% on 3 liters, blood pre ssure 137/88. HEENT: Unremarkable. NECK: No JVD. LUNGS: Clear without wheezing or rhonchi. CARDIAC: S1 and S2 regular. ABDOMEN: Soft. EXTREMITIES: No edema. ASSESSMENT: 1. Chronic obstructive pulmonary disease exacerbation. 2. Tobacco abuse. PLAN: She can probably go home tomorrow. She is currently receiving IV steroids. I will switch tho se to oral steroids. She is on Levaquin and her IV fluids can be stopped.
[2017-12-01] MEDS ORDERED: Calcium Carbonate 500 MG ChewTAB PO PRN (13:37)
[2017-12-01] MEDS: Fluticasone Propionate Nasal Spray 16 gm Bottle NASAL SCH (20:07)
[2017-12-01] MEDS: Montelukast Sodium 10 mg Tablet PO SCH (20:07)
[2017-12-01] MEDS: predniSONE 20 MG TAB PO SCH (20:08)
[2017-12-02 04:10] VITALS: BP 120/76
[2017-12-02] MEDS: Levothyroxine 175 MCG TAB PO SCH (05:38)
[2017-12-02] MEDS: Insulin Regular 300 UNITS/3 ML VIAL SC PRN (05:39)
[2017-12-02] MEDS: Mometasone/Formoterol 120 PUFF INHALER INH SCH (06:22)
[2017-12-02] MEDS ORDERED: Glimepiride 4 MG TAB PO SCH (07:30)
[2017-12-02] MEDS: guaiFENesin ER 600 MG TAB PO SCH (07:59)
[2017-12-02] MEDS: predniSONE 20 MG TAB PO SCH (07:59)
[2017-12-02] MEDS: Fluticasone Propionate Nasal Spray 16 gm Bottle NASAL SCH (08:00)
[2017-12-02] MEDS: Ketotifen Fumarate 0.025% Ophth Soln 5 ml Bottle EA EYE SCH (08:00)
--- NOTE | 2017-12-02 09:06 | PRG ---
DATE OF SERVICE: 12/02/2017 This morning she is awake, responsive. She says she is feeling better. She is ready to go home. PHYSICAL EXAMINATION: VITAL SIGNS: Sats are 96% on 2 liters, pulse 102, respirations 16, blood pressure 127/60. CHEST: Chest revealed minimal wheezing. CARDIAC: Normal S1, S2. No gallops. ABDOMEN: Soft, no masses. IMPRESSION: 1. Chronic obstructive pulmonary disease exacerbation. 2. Bronchitis. 3. Bipolar disorder. 4. Ongoing tobacco abuse. PLAN: She may be at her baseline. I suggest switching her over to oral medication. She will be dis charged home in the next 24-48 hours.
[2017-12-02 09:53] VITALS: TEMP 97.5
[2017-12-02 12:00] LABS: #Eosinphils 0.1 thou/uL (0.0-0.7); #Lymphocytes 1.4 thou/uL (1.20-3.40); #Monocytes 1.1 thou/uL (0.11-0.59); #Neutrophils 15.5 thou/uL (1.40-6.50); %Eosinophils 0.5 % (0.0-10.0); %Lymphocytes 7.8 % (21.0-51.0); %Monocytes 6.2 % (0.0-10.0); %Neutrophils 85.5 % (42.0-75.0); Hemoglobin 14.8 g/dL (12.0-16.0); Mean Corpuscular HGB CONC 34.4 g/dL (32.0-36.0); Mean Corpuscular Hemoglobin 31.8 pg (27.0-31.0); Mean Corpuscular Volume 92.5 fl (81.0-99.0); Mean Platelet Volume 9.4 fL (7.4-10.4); Platelet Count 177 thou/uL (130-400); RBC Distribution Width 13.7 % (11.5-14.5); Red Blood Cell (RBC) Count 4.66 mill/uL (4.20-5.40); White Blood Cell (WBC) Count 18.1 thou/uL (4.8-10.8)
[2017-12-02 12:19] LABS: Anion Gap 16 mmol/L (10-20); BUN (Urea Nitrogen) 17 mg/dL (7.0-18.7); Calc. Creatinine Clearance 130 mL/min (70-130); Calcium 9.7 mg/dL (7.8-10.44); Carbon Dioxide 26 mmol/L (22-29); Chloride 102 mmol/L (98-107); Estimated GFR-MDRD 69; Glucose 83 mg/dL (70-105); Potassium 4.5 mmol/L (3.5-5.1); Sodium 139 mmol/L (136-145)
--- NOTE | 2017-12-03 13:46 | DIS ---
ADMITTING DIAGNOSES: 1. Acute on chronic respiratory failure secondary to chronic obstructive pulmonary disease exacerbat ion. 2. Leukocytosis secondary to steroids. 3. Rule out pneumonia. 4. Tobacco abuse. 5. Diabetes mellitus. 6. Acute kidney injury. 7. Hypertension. 8. Hypothyroidism. FINAL DIAGNOSES: 1. Acute on chronic respiratory failure secondary to chronic obstructive pulmonary disease exacerbat ion, improved. 2. Leukocytosis, improving. 3. No evidence of pneumonia. 4. Tobacco abuse. 5. Diabetes mellitus. 6. Acute kidney injury. 7. Hypertension. 8. Hypothyroidism. BRIEF SUMMARY OF HOSPITAL COURSE: Ms. Avila is a 37-year-old female admitted because of [place] PD exacerbation with respiratory failure. The patient was initially admitted to [facility] for close monit oring. The patient was seen by Pulmonary Service to continue the steroids and neb treatments and the y felt there is no evidence of pneumonia. The patient markedly improved in the next couple of days. Her saturation improved. Her chest wheezing resolved. WBC count was coming down. In view of impro vement, the patient was discharged. At the time of discharge, she was stable. Her vital signs were stable. Lungs clear. Heart sounds regular. Abdomen: Soft, bowel sounds present. DISCHARGE MEDICATIONS: Symbicort 2 puffs b.i.d. 160/4.5 b.i.d., levothyroxine 175 mcg daily, Flonase nasal spray daily, lisinopril 10 mg daily, Lasix 40 mg daily, Nexium 40 mg daily, prednisone in tape ring doses, DuoNeb q.4h., Zofran p.r.n., Singulair 10 mg daily, Amaryl 4 mg daily, levofloxacin 500 d aily for 1 week. FOLLOWUP: The patient will come for followup in 2 weeks.
== END 2017-12-02 14:03 | disposition home or self-care (01) | DRG 189 ==
LOC: ERS 01:22 → IMCU/EMU 02:44 → T4-A 15:18
PROVIDERS: ADMIT Internal Medicine; ATTEND Internal Medicine
DX: J96.20 Acute and chronic respiratory failure, unspecified whether with hypoxia or hypercapnia (principal); I95.9 Hypotension, unspecified; N17.9 Acute kidney failure, unspecified; J44.1 Chronic obstructive pulmonary disease with (acute) exacerbation; E11.9 Type 2 diabetes mellitus without complications; E03.9 Hypothyroidism, unspecified; E66.9 Obesity, unspecified; D72.829 Elevated white blood cell count, unspecified; E78.5 Hyperlipidemia, unspecified; I10 Essential (primary) hypertension; F31.9 Bipolar disorder, unspecified; F41.9 Anxiety disorder, unspecified; F17.210 Nicotine dependence, cigarettes, uncomplicated; G40.909 Epilepsy, unspecified, not intractable, without status epilepticus; T38.0X5A Adverse effect of glucocorticoids and synthetic analogues, initial encounter
CPT/HCPCS: 36415; 36416; 71045; 80048; 80053; 82550; 82553; 83605; 83880; 84484; 85025; 87040; 93005; 94640; 94760; 96365; 96366; 96368; A4216; J0456; J1815; J1956; J2920; J7506; J7620; Q0162

== ENCOUNTER 2018-07-15 13:07 | Outpatient (CLI) | payer MEDICARE, MEDICAID ==
--- NOTE | 2018-07-15 13:50 | RAD ---
THREE VIEWS OF THE RIGHT SHOULDER: COMPARISON: None. HISTORY: Right shoulder pain and tingling. FINDINGS: Three views right shoulder show no evidence of acute fracture or dislocation. No degenerative change s are seen. No soft tissue swelling is present. IMPRESSION: Unremarkable exam. POS: [facility]
--- NOTE | 2018-07-15 13:50 | RAD ---
THREE VIEWS LEFT SHOULDER: History: Left shoulder pain and tingling. FINDINGS: Three views of the left shoulder shows no evidence of acute fracture or dislocation. No degenerative changes are seen. The visualized left thorax is unremarkable. IMPRESSION: Unremarkable exam. POS: [facility]
== END 2018-07-15 13:08 | disposition home or self-care (01) ==
LOC: BICRAD 13:07
PROVIDERS: ATTEND Internal Medicine
DX: M25.511 Pain in right shoulder (principal); M25.512 Pain in left shoulder

== ENCOUNTER 2018-07-24 10:33 | Outpatient (CLI) | payer MEDICARE, MEDICAID ==
--- NOTE | 2018-07-24 12:12 | RAD ---
CHEST TWO VIEWS: HISTORY: Chest pain. COMPARISON: 11/30/2017 FINDINGS: The lungs are clear. Heart size is enlarged. No pneumothorax. No acute osseous abnormality. IMPRESSION: Mild cardiomegaly. No acute intrathoracic abnormality. POS: [facility]
== END 2018-07-24 10:34 | disposition home or self-care (01) ==
LOC: RAD 10:33
PROVIDERS: ATTEND Internal Medicine Pulmonary Disease
DX: R06.00 Dyspnea, unspecified (principal); I51.7 Cardiomegaly
CPT/HCPCS: 71046

== ENCOUNTER 2018-08-29 06:56 | Emergency (ER) | payer MEDICARE, MEDICAID ==
[2018-08-29] MEDS ORDERED: Albuterol Sulfate 2.5 mg/0.5 ml Neb ONE ×4 (07:35)
[2018-08-29] MEDS ORDERED: methylPREDNISolone Sod Succ/PF 125 MG/2 ML VIAL ONE (07:36)
--- NOTE | 2018-08-29 08:03 | RAD ---
PORTABLE CHEST: Date: 08/29/18 PROVIDED CLINICAL HISTORY: Dyspnea. FINDINGS: Comparison with 11/30/17. Cardiac and mediastinal silhouette is within normal limits. No focal consolidation, pleural fluid, or pneumothorax apparent. Prominence of the pulmonary vasculature. IMPRESSION: Prominence of the pulmonary vasculature. POS: [facility]
[2018-08-29 08:50] LABS: #Basophils 0.1 thou/uL (0.0-0.2); #Eosinphils 0.4 thou/uL (0.0-0.7); #Lymphocytes 2.6 thou/uL (1.20-3.40); #Monocytes 0.3 thou/uL (0.11-0.59); #Neutrophils 10.4 thou/uL (1.40-6.50); %Basophils 0.4 % (0.0-1.0); %Eosinophils 3.1 % (0.0-10.0); %Lymphocytes 18.7 % (21.0-51.0); %Monocytes 2.3 % (0.0-10.0); %Neutrophils 75.4 % (42.0-75.0); Hemoglobin 14.6 g/dL (12.0-16.0); Mean Corpuscular HGB CONC 32.3 g/dL (32.0-36.0); Mean Corpuscular Hemoglobin 27.7 pg (27.0-31.0); Mean Corpuscular Volume 85.7 fL (78.0-98.0); Mean Platelet Volume 9.9 fL (7.4-10.4); Platelet Count 178 thou/uL (130-400); RBC Distribution Width 14.3 % (11.5-14.5); Red Blood Cell (RBC) Count 5.29 mill/uL (4.20-5.40); White Blood Cell (WBC) Count 13.8 thou/uL (4.8-10.8)
[2018-08-29 09:10] LABS: Anion Gap 15 mmol/L (10-20); BUN (Urea Nitrogen) 17 mg/dL (7.0-18.7); Calc. Creatinine Clearance 0 mL/min (70-130); Calcium 9.5 mg/dL (7.8-10.44); Carbon Dioxide 22 mmol/L (22-29); Chloride 103 mmol/L (98-107); Estimated GFR-MDRD 59; Glucose 108 mg/dL (70-105); Potassium 3.8 mmol/L (3.5-5.1); Sodium 136 mmol/L (136-145)
== END 2018-08-29 10:35 | disposition home or self-care (01) ==
LOC: ERS 06:56
DX: J45.901 Unspecified asthma with (acute) exacerbation (principal); E78.5 Hyperlipidemia, unspecified; J44.9 Chronic obstructive pulmonary disease, unspecified; I10 Essential (primary) hypertension; E66.9 Obesity, unspecified; E11.9 Type 2 diabetes mellitus without complications; F31.9 Bipolar disorder, unspecified; F41.9 Anxiety disorder, unspecified; F17.210 Nicotine dependence, cigarettes, uncomplicated; Z79.899 Other long term (current) drug therapy
CPT/HCPCS: 36415; 71045; 80048; 85025; 93005; 94644; 96374; J2930; J7611

== ENCOUNTER 2019-02-14 10:26 | Emergency (ER) | payer MEDICARE, MEDICAID ==
[2019-02-14] MEDS ORDERED: Ketorolac Tromethamine 30 MG/ML VIAL ONE (11:11)
--- NOTE | 2019-02-14 11:21 | RAD ---
Radiograph left shoulder 3 views: DATE: 02/14/2019 HISTORY: 38-year-old female with severe left shoulder pain. COMPARISON: 07/15/2018. FINDINGS: Currently there is no dislocation. There is a large old Hill-Sachs defect at the superolateral aspect of the humeral head. On one of the views, it appears larger than on 07/15/2018, but that could be due to positional differences. The AC joint is normal. There is no acute fracture. IMPRESSION: 1. Currently there is no dislocation and no acute fracture. 2. Large old Hill-Sachs fracture of left humeral head is evidence for prior anterior shoulder disloca tions.
--- NOTE | 2019-02-14 11:24 | RAD ---
Radiograph left humerus 2 views: DATE: 02/14/2019 HISTORY: 38-year-old female with severe acute left arm pain FINDINGS: There is a large old Hill-Sachs defect at the superior lateral aspect of the humeral head. The omaira l diaphysis and distal humeral metaphysis appear normal, with no periostitis, permeative lesion, osteolytic lesion, osteoblastic lesion, or acute fracture. IMPRESSION: 1. Large old Hill-Sachs fracture is evidence for prior anterior shoulder dislocations. 2. No acute fracture.
== END 2019-02-14 12:09 | disposition home or self-care (01) ==
LOC: ERS 10:26
DX: M25.512 Pain in left shoulder (principal); E11.40 Type 2 diabetes mellitus with diabetic neuropathy, unspecified; E03.9 Hypothyroidism, unspecified; E66.9 Obesity, unspecified; I10 Essential (primary) hypertension; J45.909 Unspecified asthma, uncomplicated; F41.9 Anxiety disorder, unspecified; F31.9 Bipolar disorder, unspecified; F17.210 Nicotine dependence, cigarettes, uncomplicated; E78.5 Hyperlipidemia, unspecified
CPT/HCPCS: 96372; J1885

== ENCOUNTER 2019-02-17 08:07 | Emergency (ER) | payer MEDICARE, OTHER ==
[2019-02-17] MEDS ORDERED: Acetaminophen 500 MG TAB ONE (09:02)
[2019-02-17 09:18] LABS: #Eosinphils 0.8 thou/uL (0.0-0.7); #Lymphocytes 2.5 thou/uL (1.20-3.40); #Monocytes 0.7 thou/uL (0.11-0.59); #Neutrophils 9.7 thou/uL (1.40-6.50); %Basophils 0.2 % (0.0-1.0); %Eosinophils 5.6 % (0.0-10.0); %Lymphocytes 18.2 % (21.0-51.0); %Monocytes 5.1 % (0.0-10.0); %Neutrophils 70.8 % (42.0-75.0); Hemoglobin 14.2 g/dL (12.0-16.0); Mean Corpuscular Hemoglobin 28.3 pg (27.0-31.0); Mean Corpuscular Volume 88.4 fL (78.0-98.0); Mean Platelet Volume 10.1 fL (7.4-10.4); Platelet Count 167 thou/uL (130-400); RBC Distribution Width 13.2 % (11.5-14.5); Red Blood Cell (RBC) Count 5.02 mill/uL (4.20-5.40); White Blood Cell (WBC) Count 13.6 thou/uL (4.8-10.8)
[2019-02-17 09:40] LABS: ALT (SGPT) 17 U/L (8-55); AST (SGOT) 18 U/L (5-34); Albumin 4.1 g/dL (3.5-5.0); Alkaline Phosphatase 82 U/L (40-150); Anion Gap 12 mmol/L (10-20); BUN (Urea Nitrogen) 15 mg/dL (7.0-18.7); Bilirubin, Total 0.4 mg/dL (0.2-1.2); Calc. Creatinine Clearance 0 mL/min (70-130); Calcium 9.8 mg/dL (7.8-10.44); Carbon Dioxide 30 mmol/L (22-29); Chloride 100 mmol/L (98-107); Estimated GFR-MDRD 50; Globulin 3.1 g/dL (2.4-3.5); Glucose 131 mg/dL (70-105); Protein, Total 7.2 g/dL (6.0-8.3); Sodium 138 mmol/L (136-145)
--- NOTE | 2019-02-17 09:47 | RAD ---
LEFT HUMERUS TWO VIEWS: HISTORY: Injury. FINDINGS: There is a fracture at the humeral head, involving the greater tuberosity. The defect appears consis tent with a Hill-Sachs type deformity/fracture. There is no evidence of dislocation. Mild degenerat loni change at the glenohumeral joint with mild spurring and subchondral cystic change at the glenoid. The AC joint is normally aligned. The humerus is otherwise unremarkable. IMPRESSION: Fracture, humeral head, suggesting Hill-Sachs type injury. POS: [facility]
--- NOTE | 2019-02-17 09:48 | RAD ---
LEFT SHOULDER TWO VIEWS: HISTORY: Injury with pain. FINDINGS: Deformity of the humeral head, consistent with fracture. A Hill-Sachs type injury is indicated. The re is no dislocation. AC joint is normally aligned. IMPRESSION: Fracture at the humeral head, suggesting a Hill-Sachs type injury. POS: [facility]
--- NOTE | 2019-02-17 09:53 | RAD ---
PA CHEST: HISTORY: Chest pain. Shoulder pain. FINDINGS: The lungs are clear. The heart and mediastinum is unremarkable. A defect of the left humeral head i s noted, as described on shoulder films. The bony thorax is otherwise unremarkable. IMPRESSION: No acute lung process. POS: [facility]
== END 2019-02-17 11:04 | disposition home or self-care (01) ==
LOC: ERS 08:07
DX: S42.202A Unspecified fracture of upper end of left humerus, initial encounter for closed fracture (principal); J45.909 Unspecified asthma, uncomplicated; E78.5 Hyperlipidemia, unspecified; I10 Essential (primary) hypertension; E03.9 Hypothyroidism, unspecified; E66.9 Obesity, unspecified; F31.9 Bipolar disorder, unspecified; F41.9 Anxiety disorder, unspecified; Z79.51 Long term (current) use of inhaled steroids; F17.210 Nicotine dependence, cigarettes, uncomplicated; Z79.899 Other long term (current) drug therapy; Z79.1 Long term (current) use of non-steroidal anti-inflammatories (NSAID); X58.XXXA Exposure to other specified factors, initial encounter
CPT/HCPCS: 36415; 71045; 80053; 85025; 94640; J7620

== ENCOUNTER 2019-05-14 14:04 | Emergency (ER) | payer MEDICARE, MEDICAID ==
[2019-05-14] MEDS ORDERED: methylPREDNISolone Sod Succ/PF 125 MG/2 ML VIAL ONE (14:56)
[2019-05-14 14:59] LABS: #Basophils 0.1 thou/uL (0.0-0.2); #Eosinphils 0.8 thou/uL (0.0-0.7); #Lymphocytes 2.5 thou/uL (1.20-3.40); #Monocytes 0.5 thou/uL (0.11-0.59); #Neutrophils 9.1 thou/uL (1.40-6.50); %Basophils 0.5 % (0.0-1.0); %Eosinophils 6.2 % (0.0-10.0); %Lymphocytes 19.5 % (21.0-51.0); %Monocytes 4.1 % (0.0-10.0); %Neutrophils 69.8 % (42.0-75.0); Hemoglobin 14.2 g/dL (12.0-16.0); Mean Corpuscular HGB CONC 34.3 g/dL (32.0-36.0); Mean Corpuscular Hemoglobin 29.6 pg (27.0-31.0); Mean Corpuscular Volume 86.4 fL (78.0-98.0); Mean Platelet Volume 9.8 fL (7.4-10.4); Platelet Count 184 thou/uL (130-400); RBC Distribution Width 13.3 % (11.5-14.5)
[2019-05-14 15:18] LABS: Acetaminophen Less than 6.0 mcg/mL (10.0-30.0); Alcohol Less than 10 mg/dL (Less than 10); CK (CPK) 344 U/L (29-168); Salicylate Less than 8.0 mg/dL (15.0-30.0)
[2019-05-14 15:19] LABS: ALT (SGPT) 21 U/L (8-55); AST (SGOT) 20 U/L (5-34); Albumin 4.2 g/dL (3.5-5.0); Alkaline Phosphatase 82 U/L (40-110); Anion Gap 15 mmol/L (10-20); BUN (Urea Nitrogen) 14 mg/dL (7.0-18.7); Bilirubin, Total 0.3 mg/dL (0.2-1.2); Calc. Creatinine Clearance 0 mL/min (70-130); Calcium 9.4 mg/dL (7.8-10.44); Carbon Dioxide 24 mmol/L (22-29); Chloride 102 mmol/L (98-107); Estimated GFR-MDRD 62; Globulin 3.3 g/dL (2.4-3.5); Glucose 117 mg/dL (70-105); Potassium 3.8 mmol/L (3.5-5.1); Protein, Total 7.5 g/dL (6.0-8.3); Sodium 137 mmol/L (136-145)
[2019-05-14 15:27] LABS: Bilirubin Negative (Negative); Blood, Urine Negative (Negative); Clarity Clear (Clear); Glucose, Urine (Dipstick) Normal (Negative); Leukocyte 25 Leu/uL (Negative); Nitrite Negative (Negative); Protein, Urine (Dipstick) Negative (Neg-Trace); RBC/HPF 0-3 HPF (0-3); Urobilinogen Normal mg/dL (Less than 2)
[2019-05-14 15:34] LABS: Amphetamine Not Detected (NotDetected); Barbiturates Screen Not Detected (NotDetected); Benzodiazepine Screen Not Detected (NotDetected); Cocaine Metabolite Screen Not Detected (NotDetected); Medtox Control Line Valid? VALID (VALID); Medtox Reader # READER 4; Methadone Not Detected (NotDetected); Methamphetamine Not Detected (NotDetected); Opiate Screen Not Detected (NotDetected); Oxycodone Screen Not Detected (NotDetected); Phencyclidine (PCP) Not Detected (NotDetected); THC/Cannabinoid Screen Not Detected (NotDetected); Tricyclic Screen Not Detected (NotDetected)
--- NOTE | 2019-05-14 15:37 | RAD ---
TWO VIEW CHEST: 05/14/19 INDICATION: Dyspnea. Lungs are clear. Heart and mediastinum appear unremarkable. IMPRESSION: No acute findings. POS: [facility]
[2019-05-14 15:39] LABS: Bacteria/HPF 1+ HPF (None Seen)
--- NOTE | 2019-05-16 09:53 | EKG ---
Test Reason : Blood Pressure : / mmHG Vent. Rate : 097 BPM Atrial Rate : 097 BPM P-R Int : 152 ms QRS Dur : 088 ms QT Int : 358 ms P-R-T Axes : 045 074 050 degrees QTc Int : 454 ms Sinus rhythm with Premature atrial complexes Otherwise normal ECG Confirmed by CHRISTOFER CROSS D.O. ([id number]), managing editor SIGIFREDO ALCANTARA ([id number]) on 05/16/2019 9:53:29 AM Referred By: Confirmed By:CHRISTOFER CROSS D.O.
== END 2019-05-14 19:26 | disposition home or self-care (01) ==
LOC: ERS 14:04
DX: J45.901 Unspecified asthma with (acute) exacerbation (principal); F32.9 Major depressive disorder, single episode, unspecified; F41.9 Anxiety disorder, unspecified; E78.5 Hyperlipidemia, unspecified; I10 Essential (primary) hypertension; E03.9 Hypothyroidism, unspecified; E66.9 Obesity, unspecified; E11.9 Type 2 diabetes mellitus without complications; F31.9 Bipolar disorder, unspecified; F17.210 Nicotine dependence, cigarettes, uncomplicated; Z79.899 Other long term (current) drug therapy; Z79.51 Long term (current) use of inhaled steroids; Z79.84 Long term (current) use of oral hypoglycemic drugs
CPT/HCPCS: 71046; 80053; 80306; 80307; 81003; 81015; 82550; 84443; 84484; 85025; 93005; 94640; 96374; J2930; J7620

== ENCOUNTER 2019-06-16 05:11 | Emergency (ER) | payer MEDICARE, OTHER ==
[2019-06-16] MEDS ORDERED: Albuterol Sulfate 2.5 mg/0.5 ml Neb ONE (05:35)
[2019-06-16] MEDS ORDERED: Albuterol Sulfate 2.5 mg/3 ml Neb ONE (05:35)
[2019-06-16] MEDS ORDERED: predniSONE 20 MG TAB ONE (06:16)
--- NOTE | 2019-06-16 09:20 | RAD ---
FRONTAL VIEW CHEST: INDICATIONS: Flu like syndrome. COMPARISON: Two view chest from 05/14/2019. FINDINGS: There is interstitial prominence of the lungs bilaterally. The cardiac silhouette is stable. Slight b lunting of the costophrenic sulci could relate to mild pleural thickening or trace pleural fluid. IMPRESSION: Bilateral interstitial opacities could relate to interstitial pneumonitis or alternatively edema. Recommend clinical correlation and if necessary imaging followup may be obtained for continued assess ment. POS: [facility]
== END 2019-06-16 06:22 | disposition home or self-care (01) ==
LOC: ERS 05:11
DX: J44.1 Chronic obstructive pulmonary disease with (acute) exacerbation (principal); E78.5 Hyperlipidemia, unspecified; I10 Essential (primary) hypertension; E03.9 Hypothyroidism, unspecified; E66.9 Obesity, unspecified; E11.9 Type 2 diabetes mellitus without complications; F31.9 Bipolar disorder, unspecified; F41.9 Anxiety disorder, unspecified; F17.210 Nicotine dependence, cigarettes, uncomplicated; Z79.51 Long term (current) use of inhaled steroids; Z71.6 Tobacco abuse counseling; Z79.899 Other long term (current) drug therapy; Z79.84 Long term (current) use of oral hypoglycemic drugs; Z79.52 Long term (current) use of systemic steroids
CPT/HCPCS: 71045; 87804; 94644; 99406; J7512; J7611

== ENCOUNTER 2019-07-26 07:12 | Inpatient (IN) | payer MEDICARE, MEDICAID ==
[2019-07-26 07:55] LABS: Hemoglobin 14.1 g/dL (12.0-16.0); Mean Corpuscular HGB CONC 32.6 g/dL (32.0-36.0); Mean Corpuscular Hemoglobin 29.1 pg (27.0-31.0); Mean Corpuscular Volume 89.3 fL (78.0-98.0); Mean Platelet Volume 9.5 fL (7.4-10.4); Platelet Count 216 thou/uL (130-400); RBC Distribution Width 14.2 % (11.5-14.5); Red Blood Cell (RBC) Count 4.85 mill/uL (4.20-5.40)
[2019-07-26 07:57] LABS: Actual Bicarbonate (HCO3a) 26.8 mEq/L (22-28); Analyzer IN Cardio ER; Base Excess (BEa) 0.4 mEq/L (-2.0 to +3.0); CO2 Tension 49.9 mmHg (35.0-45.0); Calcium, Ionized 1.21 mmol/L (1.12-1.30); Hemoglobin (Hb) 14.9 g/dL (12.0-16.0); O2 Tension (PaO2) 67.3 mmHg (80.0-100.0); Potassium - ABG Lab 4.13 mmol/L (3.70-5.30); pH, Arterial 7.35 (7.35-7.45)
[2019-07-26 08:00] LABS: ALV-art Gradient 69.965 (0-20); Puncture Site RRA
[2019-07-26 08:23] LABS: ALT (SGPT) 20 U/L (8-55); AST (SGOT) 14 U/L (5-34); Albumin 4.2 g/dL (3.5-5.0); Alkaline Phosphatase 91 U/L (40-110); Anion Gap 15 mmol/L (10-20); BUN (Urea Nitrogen) 15 mg/dL (7.0-18.7); Bilirubin, Total 0.2 mg/dL (0.2-1.2); Calc. Creatinine Clearance 0 mL/min (70-130); Calcium 9.3 mg/dL (7.8-10.44); Carbon Dioxide 26 mmol/L (22-29); Chloride 101 mmol/L (98-107); Estimated GFR-MDRD 50; Globulin 3.1 g/dL (2.4-3.5); Glucose 129 mg/dL (70-105); Lymphocytes 11 % (21-51); MDiff Complete? YES; Monocytes 1 % (0-10); Neutrophil 87 % (42-75); Platelet Morphology Comment Appears Adequate; Potassium 4.2 mmol/L (3.5-5.1); Protein, Total 7.3 g/dL (6.0-8.3); RBC Morphology Normal; Sodium 138 mmol/L (136-145); White Blood Cell (WBC) Count 22.3 thou/uL (4.8-10.8)
--- NOTE | 2019-07-26 09:44 | RAD ---
CHEST 1 VIEW PORTABLE: HISTORY: Asthma and COPD. COMPARISON: 06/16/2019. FINDINGS: Heart size is normal. The lungs are clear. Arthrosis changes left glenohumeral joint. IMPRESSION: No acute intrathoracic disease. POS: [facility]
[2019-07-26] MEDS ORDERED: methylPREDNISolone Sod Succ/PF 125 MG/2 ML VIAL ONE (10:49)
[2019-07-26] MEDS ORDERED: Azithromycin 500 MG VIAL ONE (10:49)
[2019-07-26 11:09] LABS: Lactic Acid 2.5 mmol/L (0.5-2.2)
[2019-07-26 12:20] VITALS: BMI 43.4
[2019-07-26] MEDS: Mometasone/Formoterol 120 PUFF INHALER INH SCH ×2 (13:15→19:50)
[2019-07-26] MEDS ORDERED: Ondansetron PF 4 MG/2 ML Vial IVP PRN (13:28)
[2019-07-26] MEDS ORDERED: Dextrose 5% in Water 1,000 ML IV PRN (13:29)
[2019-07-26] MEDS ORDERED: Dextrose 50% Abboject 50 ML SYRINGE IVP PRN (13:29)
[2019-07-26] MEDS ORDERED: Acetaminophen 325 MG TAB PO PRN (13:29)
[2019-07-26] MEDS: Nicotine 14 MG PATCH TOP SCH (13:46)
--- NOTE | 2019-07-26 15:37 | CON ---
DATE OF CONSULTATION: HISTORY OF PRESENT ILLNESS: Alma Avila is a 38-year-old bipolar schizophrenic patient, who was admitted to the hospital on room 245. Respiratory notified me that she is having difficulty breathing. They know, we have seen her in the past before, she had been intubated several times. Upon arrival to the room, she said she was having difficulty breathing there for several days, coughing, wheezing, and shortness of breath. No fever or chills. She is still smoking a pack a day. In fact, she says she has a patch to try to refrain from smoking. She is extremely poor compliant patient, who has not been in our office for a long period of time. In fact, she told me that she wants prescription for portable O2 concentrator. PAST MEDICAL HISTORY: Ongoing tobacco abuse, COPD, hypertension, hypothyroidism , obesity, chronic asthma, chronic tobacco abuse, diabetes, bipolar, and depression. PAST SURGICAL HISTORY: None recently, left arm. SOCIAL HISTORY: Former drug abuser. Currently ongoing tobacco abuse. No alcohol abuse. ALLERGIES: MULTIPLE CEPHALOSPORIN, AMOXICILLIN, PENICILLIN, AND SHELLFISH. HOME MEDICATIONS: Includes; 1. Prednisone apparently 10 a day. 2. Singulair. 3. Synthroid. 4. DuoNeb. 5. Amaryl 1. 6. Lasix 40. 7. Flonase. 8. Symbicort inhaler. REVIEW OF SYSTEMS: Otherwise, unremarkable. PHYSICAL EXAMINATION: GENERAL: Sitting on the side of the bed, mild distress. VITAL SIGNS: O2 saturation is 93%, respirations 18, and blood pressure 130/80. CHEST: Diffuse wheezing. CARDIAC: Normal S1 and S2. No gallops. ABDOMEN: Soft. NEUROLOGIC: Awake, alert, responsive, moves all 4 extremities. DIAGNOSTIC STUDIES: Chest x-ray was clear. No acute infiltrates were seen. White count 20,000, H and H 14 and 43, and platelet count 216. A pO2 of 67, pCO2 of 45. Creatinine 1.2. IMPRESSION AND PLAN: 1. Chronic obstructive pulmonary disease exacerbation, bronchitis, ongoing tobacco abuse. 2. Leukocytosis. 3. Renal failure. 4. Bipolar disorder. Empiric antibiotic has been added. Otherwise, continue neb treatments, steroids , and supportive care. We will follow while in the hospital. She is to refrain from smoking. Consultation note, 70 minutes, 50% direct patient care. NO PORTABLE O2 CONCENTRATER UNTIL QUITS SMOKING Job ID: [id number] MTDD
[2019-07-26] MEDS: Insulin Regular 300 UNITS/3 ML VIAL SC PRN ×2 (16:53→21:34)
[2019-07-26] MEDS: methylPREDNISolone Sod Succ 40 MG VIAL IVP SCH ×2 (16:54→23:46)
--- NOTE | 2019-07-26 17:58 | HP ---
CHIEF COMPLAINT: Shortness of breath. HISTORY OF PRESENT ILLNESS: Ms. Avila is a 38-year-old female with past medical history of COPD, hypertension, diabetes, has been having problems with breathing and coughing for more than a week. The patient states she has been using her medication, nebulized treatments. Her shortness of breath was getting worse to the point she could not breathe anymore. She has been wheezing a lot. Has cough productive with yellow sputum. She claims she has fever intermittently. She did not have any chest pain, but has some nausea. No vomiting. No headache or dizziness. The patient decided to come to the hospital because of worsening shortness of breath. The patient is seen in the ER, found to be in COPD acute exacerbation with respiratory failure. The patient received dose of Solu- Medrol and DuoNeb x2, given azithromycin IV and admitted for further evaluation and management. The patient is still being wheezing. PAST MEDICAL HISTORY: 1. COPD. 2. Hypertension. 3. Hyperlipidemia. 4. Diabetes mellitus. 5. Hypothyroidism. 6. Bipolar disorder. 7. Seizure disorder. 8. Current tobacco abuse. PAST SURGERY HISTORY: Nothing significant. CURRENT MEDICATIONS: The patient is on: 1. DuoNeb q.i.d. 2. Symbicort 2 puffs b.i.d. 3. Flonase nasal spray daily. 4. Lasix 40 mg daily. 5. Glimepiride 1 mg daily. 6. DuoNeb q.i.d. 7. Levothyroxine 175 mcg daily. 8. Lisinopril 10 mg daily. 9. Singulair 10 mg daily. 10. Zofran p.r.n. ALLERGIES: MULTIPLE INCLUDE CEPHALOSPORINS, AMOXICILLIN, ASPIRIN, PENICILLIN, SHELLFISH, SULFA. FAMILY HISTORY: Nothing significant. SOCIAL HISTORY: The patient lives with family. No history of alcohol. She smokes one pack a day. REVIEW OF SYSTEMS: CARDIOVASCULAR: No chest pain. Has shortness of breath. RESPIRATORY: Has cough, fever. GASTROINTESTINAL: Has nausea. No vomiting. CENTRAL NERVOUS SYSTEM: No headache, no dizziness. PHYSICAL EXAMINATION: GENERAL: The patient is alert, awake, oriented x3. VITAL SIGNS: Temperature 98, pulse 108, respirations 22, blood pressure 130/ 70. HEENT: Head is normocephalic, atraumatic. Pupils are equal and reactive. Nasopharynx is pale and dry. NECK: Supple. No JVD. LUNGS: Bilateral air entry present. Expiratory wheeze present bilaterally. No rales, no rhonchi. HEART: S1 and S2, regular. ABDOMEN: Soft. No distention. No tenderness. No organomegaly. Bowel sounds present. RECTAL: Deferred. CENTRAL NERVOUS SYSTEM: No focal deficit. LABORATORY DATA: CBC shows WBC 22,000, hemoglobin 14, hematocrit 43, platelets 216. Metabolic panel; sodium 138, potassium 4.2, chloride 101, CO2 is 26, urea nitrogen 15, creatinine 1.2, glucose 130, lactic acid 2.3. ABG showed pH 7.35, pCO2 of 49, pO2 of 67, saturation 93%. Chest x-ray, no acute chronic intrathoracic disease seen. EKG shows sinus tachycardia, no acute ST-T changes seen. ASSESSMENT: 1. Chronic obstructive pulmonary disease with acute exacerbation with acute on chronic respiratory failure. 2. Leukocytosis. 3. Tobacco abuse. 4. Diabetes mellitus. 5. Hypertension. 6. Hypothyroidism. 7. Bipolar disorder. PLAN: 1. Vital signs q.4 hours. 2. Activities as tolerated. 3. Allergies, multiple. 4. Hep-Lock. 5. Oxygen via nasal cannula at 3 L. 6. DuoNeb 1 unit q.4 hours, Solu-Medrol 20 mg IVP q.6 hours, Mucinex 600 mg b.i.d. 7. Continue home medications. 8. Accu-Cheks ac/hs and sliding scale mild with regular insulin. 9. Doxycycline 100 mg b.i.d. Job ID: [id number] [facility]
[2019-07-26] MEDS: guaiFENesin ER 600 MG TAB PO SCH (19:46)
[2019-07-26] MEDS: Montelukast Sodium 10 mg Tablet PO SCH (19:46)
[2019-07-26] MEDS: Doxycycline 100 MG CAP PO SCH (19:46)
[2019-07-27] MEDS: methylPREDNISolone Sod Succ 40 MG VIAL IVP SCH ×3 (06:36→17:55)
[2019-07-27] MEDS: Levothyroxine 175 MCG TAB PO SCH (06:36)
[2019-07-27] MEDS: Insulin Regular 300 UNITS/3 ML VIAL SC PRN ×3 (06:38→21:32)
[2019-07-27] MEDS: Mometasone/Formoterol 120 PUFF INHALER INH SCH ×2 (07:24→19:46)
[2019-07-27] MEDS: Lisinopril 10 MG TAB PO SCH (08:47)
[2019-07-27] MEDS: Furosemide 40 MG TAB PO SCH (08:47)
[2019-07-27] MEDS: Doxycycline 100 MG CAP PO SCH ×2 (08:47→21:32)
[2019-07-27] MEDS: guaiFENesin ER 600 MG TAB PO SCH ×2 (08:47→21:32)
[2019-07-27] MEDS: Glimepiride 1 MG TAB PO SCH (08:48)
--- NOTE | 2019-07-27 10:08 | PRG ---
DATE OF SERVICE: 07/27/2019 SUBJECTIVE: This morning, she is better. OBJECTIVE: VITAL SIGNS: Saturations are temperature 98, pulse . CHEST: Bilateral expiratory wheezing, though less. CARDIAC: Normal S1 and S2. No gallops. ABDOMEN: Soft. IMPRESSION AND PLAN: 1. Chronic obstructive pulmonary disease exacerbation, bronchitis, and asthma. 2. Bipolar and ongoing tobacco abuse. Continue PT and supportive care. Disposition as per primary care physician. Job ID: [id number]
[2019-07-27] MEDS: Fluticasone Propionate Nasal Spray 16 gm Bottle NASAL SCH (10:45)
[2019-07-27] MEDS ORDERED: FLU VACC QS2019-20(6MOS UP)/PF 60 MCG/0.5 ML SYRINGE IM ONE (13:00)
[2019-07-27] MEDS: Nicotine 14 MG PATCH TOP SCH (15:12)
[2019-07-27] MEDS: Montelukast Sodium 10 mg Tablet PO SCH (21:32)
[2019-07-27] MEDS ORDERED: Tetrahydrozoline 0.05% OPTH 15 ML BOT EA EYE PRN (23:42)
[2019-07-28] MEDS: methylPREDNISolone Sod Succ 40 MG VIAL IVP SCH ×5 (00:22→23:32)
[2019-07-28] MEDS: Levothyroxine 175 MCG TAB PO SCH (06:17)
[2019-07-28] MEDS: Mometasone/Formoterol 120 PUFF INHALER INH SCH ×2 (06:55→19:55)
[2019-07-28] MEDS: Doxycycline 100 MG CAP PO SCH ×2 (08:10→19:56)
[2019-07-28] MEDS: Lisinopril 10 MG TAB PO SCH (08:10)
[2019-07-28] MEDS: Glimepiride 1 MG TAB PO SCH (08:10)
[2019-07-28] MEDS: Furosemide 40 MG TAB PO SCH (08:11)
[2019-07-28] MEDS: guaiFENesin ER 600 MG TAB PO SCH ×2 (08:11→19:57)
[2019-07-28] MEDS: Fluticasone Propionate Nasal Spray 16 gm Bottle NASAL SCH (08:11)
[2019-07-28] MEDS ORDERED: Tetrahydrozoline 0.05% OPTH 15 ML BOT EA EYE SCH (09:00)
--- NOTE | 2019-07-28 09:31 | PRG ---
DATE OF SERVICE: 07/28/2019 SUBJECTIVE: This morning, the patient is better, less short of breath, less cough. OBJECTIVE: VITAL SIGNS: Temperature 98, pulse 92, respirations 20, saturations are 95% on 2 L, and blood pressure 119/69. CHEST: Occasional wheeze. Prolonged expiration. CARDIAC: Normal S1 and S2. No gallops. ABDOMEN: No masses. IMPRESSION: Chronic obstructive pulmonary disease exacerbation, ongoing tobacco use, baseline bipolar. PLAN: She can be switched over to oral medication, home any time, Pulmonary will follow at a distance. Job ID: [id number]
[2019-07-28] MEDS: Insulin Regular 300 UNITS/3 ML VIAL SC PRN ×2 (12:27→17:57)
[2019-07-28] MEDS: Nicotine 14 MG PATCH TOP SCH (14:16)
[2019-07-28] MEDS: Montelukast Sodium 10 mg Tablet PO SCH (19:57)
[2019-07-29] MEDS ORDERED: Clopidogrel Bisulfate 75 MG TAB ONE (05:18)
[2019-07-29] MEDS: methylPREDNISolone Sod Succ 40 MG VIAL IVP SCH ×3 (05:30→17:35)
[2019-07-29] MEDS: Levothyroxine 175 MCG TAB PO SCH (05:31)
[2019-07-29] MEDS: Mometasone/Formoterol 120 PUFF INHALER INH SCH ×2 (07:48→18:28)
[2019-07-29 08:27] VITALS: TEMP 98.2
[2019-07-29] MEDS: Doxycycline 100 MG CAP PO SCH (09:05)
[2019-07-29] MEDS: Glimepiride 1 MG TAB PO SCH (09:05)
[2019-07-29] MEDS: guaiFENesin ER 600 MG TAB PO SCH (09:05)
[2019-07-29] MEDS: Furosemide 40 MG TAB PO SCH (09:06)
[2019-07-29] MEDS: Lisinopril 10 MG TAB PO SCH (09:06)
[2019-07-29] MEDS: Fluticasone Propionate Nasal Spray 16 gm Bottle NASAL SCH (09:07)
[2019-07-29] MEDS: Nicotine 14 MG PATCH TOP SCH (11:32)
[2019-07-29] MEDS: Insulin Regular 300 UNITS/3 ML VIAL SC PRN (11:37)
[2019-07-29 13:05] VITALS: BP 105/67
[2019-07-29 16:37] LABS: Anion Gap 18 mmol/L (10-20); BUN (Urea Nitrogen) 29 mg/dL (7.0-18.7); Calc. Creatinine Clearance 96 mL/min (70-130); Calcium 9.7 mg/dL (7.8-10.44); Carbon Dioxide 28 mmol/L (22-29); Chloride 94 mmol/L (98-107); Estimated GFR-MDRD 46; Glucose 235 mg/dL (70-105); Potassium 4.2 mmol/L (3.5-5.1); Sodium 136 mmol/L (136-145)
[2019-07-29 16:46] LABS: Band 5 % (5-11); Hemoglobin 14.9 g/dL (12.0-16.0); Lymphocytes 3 % (21-51); MDiff Complete? YES; Mean Corpuscular HGB CONC 33.1 g/dL (32.0-36.0); Mean Corpuscular Hemoglobin 29.1 pg (27.0-31.0); Mean Corpuscular Volume 87.9 fL (78.0-98.0); Mean Platelet Volume 9.8 fL (7.4-10.4); Monocytes 1 % (0-10); Neutrophil 90 % (42-75); Platelet Count 241 thou/uL (130-400); Platelet Morphology Comment Appears Adequate; Polychromasia SLIGHT = 2-3 cells (100X) (0-2/hpf); Reactive Lymphocytes 1 % (0-10); Red Blood Cell (RBC) Count 5.11 mill/uL (4.20-5.40); Tear Drops SLIGHT = 2-5 cells (100X) (0-1/hpf); White Blood Cell (WBC) Count 25.8 thou/uL (4.8-10.8)
--- NOTE | 2019-07-30 02:00 | PQF ---
KATHIA GREEN ANUP G MD [id number] CLINICAL DOCUMENTATION CLARIFICATION FORM: POST DISCHARGE Addendum to original discharge summary date: ____ Late entry note date: __ DATE: 07/30/19 ATTN: Sorin Bautista Please exercise your independent, professional judgment in responding to the clarification form. Clinical indicators are provided on the bottom of this form for your review Please check appropriate box(s) to clarify if the following diagnosis has been ruled in or ruled out: Acute on Chronic Respiratory Failure [ ] Ruled in diagnosis [ ] Continue to treat [ ] Resolved [ ] Ruled out diagnosis [ ] Cannot rule out diagnosis [ ] Other diagnosis [ ] Unable to determine In addition, please specify: Present on Admission (POA): [ ] Yes [ ] No [ ] Unable to determine For continuity of documentation, please document condition throughout progress notes and discharge summary. Thank You. CLINICAL INDICATORS - SIGNS / SYMPTOMS / LABS H&p p1 07/26 Dr High has been having problems with breathing and coughing for more than a week H&p p1 07/26 Dr High the patient states she has been using her medication , nebulization treatment H&p p1 07/26 Dr High Her shortness of breath was hetting worse to the point she could not breath anymore H&p p2 07/26 Dr High Vital sign: Temp98, Pulse 108, Resp 22, BP 130/70 RISK FACTORS H&p p1 07/26 - COPD H&p p1 07/26 - Current tobacco abuse H&p p3 07/26 - Acute on Chronic Respiratory Failure TREATMENTS OCT 21 Solu-medrol OCT 21 DuoNeb OCT 21 IV Azithromycin Respiratory Panel 07/26 Oxygen 3L Pulmo consult 07/26 Sorin Bautista (This form is maintained as a part of the permanent medical record) 2014 [employer] All Rights Reserved [email or web address] [not provided] MTDD
--- NOTE | 2019-07-31 04:08 | DIS ---
DATE OF ADMISSION: 07/26/2019 DATE OF DISCHARGE: 07/29/2019 ADMITTING DIAGNOSES: 1. Chronic obstructive pulmonary disease with acute exacerbation. 2. Acute on chronic respiratory failure secondary to #1. 3. Leukocytosis. 4. Tobacco abuse. 5. Diabetes mellitus and hypertension and hypothyroidism. 6. Bipolar disorder. FINAL DIAGNOSES: 1. Chronic obstructive pulmonary disease with acute exacerbation, improved. 2. Leukocytosis. 3. Tobacco abuse. 4. Diabetes mellitus. 5. Hypertension. 6. Hypothyroidism. 7. Bipolar disorder. BRIEF SUMMARY OF HOSPITAL COURSE: Ms. Avila is 38-year-old female, admitted because of severe COPD exacerbation with chest wheezing and shortness of breath. The patient was started on IV Solu-Medrol, DuoNebs, and antibiotics. The patient markedly improved in the next 2 days. Shortness of breath improved. Chest wheezing resolved. Her Solu-Medrol was decreased and changed to prednisone. In view of improvement, the patient is discharged home. At the time of discharge, she was stable. Her vital signs were stable. Lungs clear. Heart sounds regular. Abdomen is soft and nontender. Bowel sounds present. DISCHARGE MEDICATIONS: Include Symbicort 160/4.5 two puffs b.i.d., levothyroxine 175 mcg daily, Flonase nasal spray daily, lisinopril 10 mg daily, DuoNeb q.4 hours, Zofran p.r.n., Singulair 10 mg daily, glimepiride 1 mg daily, Protonix 40 mg daily, Mucinex 600 b.i.d. for 10 days, doxycycline 100 mg b.i.d. for 1 week, NicoDerm patch 14 inches daily for one month, prednisone in tapering doses. The patient will come for followup in 2 weeks. Job ID: [id number]
== END 2019-07-29 19:25 | disposition home or self-care (01) | DRG 191 ==
LOC: ERS 07:12 → 2SW 12:18 → OBSVTOIN 12:18 → T4-B 07-27 10:00
PROVIDERS: ADMIT Internal Medicine; ATTEND Internal Medicine
DX: J44.1 Chronic obstructive pulmonary disease with (acute) exacerbation (principal); Z68.41 Body mass index [BMI] 40.0-44.9, adult; J40 Bronchitis, not specified as acute or chronic; F20.9 Schizophrenia, unspecified; E78.5 Hyperlipidemia, unspecified; I10 Essential (primary) hypertension; E03.9 Hypothyroidism, unspecified; F31.9 Bipolar disorder, unspecified; E66.9 Obesity, unspecified; F17.200 Nicotine dependence, unspecified, uncomplicated; Z79.899 Other long term (current) drug therapy; Z79.890 Hormone replacement therapy; Z79.01 Long term (current) use of anticoagulants; Z79.51 Long term (current) use of inhaled steroids; Z79.52 Long term (current) use of systemic steroids; Z88.1 Allergy status to other antibiotic agents; Z88.0 Allergy status to penicillin; Z91.013 Allergy to seafood; Z88.2 Allergy status to sulfonamides; Z23 Encounter for immunization
CPT/HCPCS: 36415; 36416; 71045; 80048; 80053; 82805; 83605; 83880; 84484; 85025; 87804; 90471; 90686; 93005; 94640; 96365; 96375; G0008; J0456; J1815; J2405; J2920; J2930; J7620

== ENCOUNTER 2019-12-10 04:56 | Emergency (ER) | payer MEDICARE, OTHER | END 2019-12-10 05:20 | disposition home or self-care (01) | LOC: ERS 04:56 | DX: G47.00 Insomnia, unspecified (principal); R42 Dizziness and giddiness; E11.9 Type 2 diabetes mellitus without complications; I10 Essential (primary) hypertension; E03.9 Hypothyroidism, unspecified; J44.9 Chronic obstructive pulmonary disease, unspecified; E78.6 Lipoprotein deficiency; E66.9 Obesity, unspecified; F41.9 Anxiety disorder, unspecified; J45.909 Unspecified asthma, uncomplicated; F31.9 Bipolar disorder, unspecified; F17.210 Nicotine dependence, cigarettes, uncomplicated; E78.5 Hyperlipidemia, unspecified; Z79.899 Other long term (current) drug therapy | CPT/HCPCS: 99281 ==

== ENCOUNTER 2019-12-21 23:45 | Emergency (ER) | payer MEDICARE, MEDICAID | END 2019-12-22 02:55 | disposition home or self-care (01) | LOC: ERS 23:45 | DX: L60.0 Ingrowing nail (principal); R51 Headache; E78.5 Hyperlipidemia, unspecified; E11.9 Type 2 diabetes mellitus without complications; I10 Essential (primary) hypertension; J44.9 Chronic obstructive pulmonary disease, unspecified; E03.9 Hypothyroidism, unspecified; F41.9 Anxiety disorder, unspecified; F31.9 Bipolar disorder, unspecified; F17.210 Nicotine dependence, cigarettes, uncomplicated; Z79.899 Other long term (current) drug therapy | CPT/HCPCS: 99284 ==

== ENCOUNTER 2019-12-29 13:53 | Emergency (ER) | payer MEDICARE, MEDICAID | END 2019-12-29 16:50 | disposition home or self-care (01) | LOC: ERS 13:53 | DX: L73.9 Follicular disorder, unspecified (principal); E11.9 Type 2 diabetes mellitus without complications; E03.9 Hypothyroidism, unspecified; E78.5 Hyperlipidemia, unspecified; J44.9 Chronic obstructive pulmonary disease, unspecified; F31.9 Bipolar disorder, unspecified; F41.9 Anxiety disorder, unspecified; I10 Essential (primary) hypertension; F17.210 Nicotine dependence, cigarettes, uncomplicated; Z79.84 Long term (current) use of oral hypoglycemic drugs; Z79.52 Long term (current) use of systemic steroids; Z79.899 Other long term (current) drug therapy; Z79.51 Long term (current) use of inhaled steroids | CPT/HCPCS: 99283 ==

== ENCOUNTER 2020-01-15 01:53 | Inpatient (IN) | payer MEDICARE, MEDICAID ==
[2020-01-15] MEDS ORDERED: Lorazepam 2 MG/ML VIAL ONE (02:29)
[2020-01-15] MEDS ORDERED: Haloperidol Lactate 5 MG/ML VIAL ONE (02:29)
[2020-01-15] MEDS ORDERED: diphenhydrAMINE 50 MG/ML VIAL ONE (02:29)
[2020-01-15 03:26] LABS: ALT (SGPT) 23 U/L (8-55); AST (SGOT) 18 U/L (5-34); Acetaminophen Less than 6.0 mcg/mL (10.0-30.0); Alcohol Less than 10 mg/dL (Less than 10); Alkaline Phosphatase 74 U/L (40-110); Anion Gap 15 mmol/L (10-20); BUN (Urea Nitrogen) 18 mg/dL (7.0-18.7); Bilirubin, Total 0.3 mg/dL (0.2-1.2); CK (CPK) 308 U/L (29-168); Calc. Creatinine Clearance 0 mL/min (70-130); Carbon Dioxide 22 mmol/L (22-29); Chloride 103 mmol/L (98-107); Estimated GFR-MDRD 47; Globulin 2.9 g/dL (2.4-3.5); Glucose 192 mg/dL (70-105); Potassium 3.6 mmol/L (3.5-5.1); Protein, Total 6.9 g/dL (6.0-8.3); Salicylate Less than 8.0 mg/dL (15.0-30.0); Sodium 136 mmol/L (136-145)
[2020-01-15 03:34] LABS: Band 4 % (5-11); Eosinophils 2 % (0-10); Hemoglobin 15.3 g/dL (12.0-16.0); Lymphocytes 31 % (21-51); MDiff Complete? YES; Mean Corpuscular HGB CONC 34.9 g/dL (32.0-36.0); Mean Corpuscular Hemoglobin 30.6 pg (27.0-31.0); Mean Corpuscular Volume 87.6 fL (78.0-98.0); Monocytes 1 % (0-10); Neutrophil 62 % (42-75); Platelet Count 223 thou/uL (130-400); RBC Distribution Width 13.6 % (11.5-14.5); Red Blood Cell (RBC) Count 5.01 mill/uL (4.20-5.40); White Blood Cell (WBC) Count 20.3 thou/uL (4.8-10.8)
[2020-01-15 04:38] LABS: Bilirubin Negative (Negative); Blood, Urine Negative (Negative); Clarity Clear (Clear); Glucose, Urine (Dipstick) Normal (Negative); Leukocyte 25 Leu/uL (Negative); Nitrite Negative (Negative); Protein, Urine (Dipstick) 10 mg/dL (Neg-Trace); RBC/HPF 0-3 HPF (0-3); Urobilinogen Normal mg/dL (Less than 2); WBC/HPF 0-3 HPF (0-3)
[2020-01-15 04:39] LABS: Pregnancy Test - Urine (BHCG) Negative (Negative); Pregu Control Background? CLEAR/WHITE (CLR/WHITE); Pregu Control Bar Appear? YES (CONTROL BAR); Specific Gravity 1.029 (1.002-1.036)
[2020-01-15 04:43] LABS: Medtox Reader # READER 4
[2020-01-15 04:44] LABS: Amphetamine Not Detected (NotDetected); Barbiturates Screen Not Detected (NotDetected); Benzodiazepine Screen Not Detected (NotDetected); Cocaine Metabolite Screen Not Detected (NotDetected); Medtox Control Line Valid? VALID (VALID); Methadone Not Detected (NotDetected); Methamphetamine Not Detected (NotDetected); Opiate Screen Not Detected (NotDetected); Oxycodone Screen Not Detected (NotDetected); Phencyclidine (PCP) Not Detected (NotDetected); THC/Cannabinoid Screen Not Detected (NotDetected); Tricyclic Screen Not Detected (NotDetected)
[2020-01-15 04:48] LABS: Bacteria/HPF 1+ HPF (None Seen)
[2020-01-15 06:01] LABS: #Basophils 0.1 thou/uL (0.0-0.2); #Eosinphils 0.3 thou/uL (0.0-0.7); #Lymphocytes 3.8 thou/uL (1.20-3.40); #Monocytes 0.8 thou/uL (0.11-0.59); %Basophils 0.6 % (0.0-1.0); %Lymphocytes 23.8 % (21.0-51.0); %Monocytes 4.9 % (0.0-10.0); %Neutrophils 68.7 % (42.0-75.0); Hemoglobin 15.6 g/dL (12.0-16.0); Mean Corpuscular HGB CONC 35.1 g/dL (32.0-36.0); Mean Corpuscular Hemoglobin 30.6 pg (27.0-31.0); Mean Corpuscular Volume 87.3 fL (78.0-98.0); Mean Platelet Volume 10.3 fL (7.4-10.4); Platelet Count 190 thou/uL (130-400); RBC Distribution Width 13.6 % (11.5-14.5); Red Blood Cell (RBC) Count 5.11 mill/uL (4.20-5.40)
--- NOTE | 2020-01-15 07:43 | CT ---
CT head noncontrast HISTORY: Altered mental status. COMPARISON: 03/29/2008. FINDINGS: There is no evidence of acute intracranial hemorrhage or infarct. The ventricles appear nor mal in size, shape and position. There is no mass effect or shift midline structures. Visualized paranasal sinuses remain well aerated. IMPRESSION : No acute intracranial abnormalities are demonstrated.
[2020-01-15] MEDS ORDERED: Ketamine 50 MG/ML (10ML VIAL) ONE (08:13)
[2020-01-15] MEDS ORDERED: Vancomycin 1 GM/200 ML BAG ONE (08:13)
[2020-01-15] MEDS ORDERED: Ketamine 50 MG/ML (10ML VIAL) SLOW IVP SCH (08:15)
[2020-01-15] MEDS ORDERED: cefTRIAXone\\ROCEPHIN 2 GM in Sodium Chloride 0.9% 100 ML IVPB SCH (08:15)
[2020-01-15] MEDS ORDERED: ACYCLOVIR SODIUM IVPB SCH (08:30)
[2020-01-15] MEDS ORDERED: Vancomycin 1 GM in Premix Bag 1 BAG IVPB SCH (08:30)
[2020-01-15] MEDS ORDERED: ADMIXTURE FEE IVPB SCH (08:30)
[2020-01-15] MEDS ORDERED: SODIUM CHLORIDE IVPB SCH (08:30)
[2020-01-15] MEDS ORDERED: Mupirocin 2% Ointment 22 GM Tube TOP SCH (09:00)
[2020-01-15] MEDS ORDERED: Midazolam HCl 5 mg/ml Vial ONE (09:38)
--- NOTE | 2020-01-15 10:24 | HP ---
REASON FOR ADMISSION: Acute altered mental status. HISTORY OF PRESENT ILLNESS: A 39-year-old female, who has underlying history of COPD/asthma, hypothyroidism, anxiety and depression/bipolar disorder, and diabetes, who presented to emergency room for altered mental status. The patient was brought by EMS for acute psychosis. Per patient, she was . Unfortunately, this patient is not able to provide any history at this point because of her altered mental status, so history is very limited. In the emergency room, her CT brain was negative. Her routine blood tests showed leukocytosis, but repeat blood tests showed improvement in her WBC count, but still it was 16,000. BMP was normal, and her thyroid function test was out of control. Her urine drug screen was negative, and her urinalysis was normal. In the emergency room, ER physician is trying to do lumbar puncture to rule out any intracranial process. I have seen and examined this patient at bedside in the emergency room, but unfortunately the patient is not able to provide any history because of altered mental status. PAST MEDICAL HISTORY: COPD/asthma; hypertension; dyslipidemia; diabetes, type 2; hypothyroidism; seizure disorder; and tobacco abuse disorder. PAST PSYCHIATRIC HISTORY: Anxiety/depression/bipolar disorder. PAST SURGICAL HISTORY: Reviewed and negative. ALLERGIES: MULTIPLE INCLUDING CEPHALOSPORIN, AMOXICILLIN, ASPIRIN, PENICILLIN, AND SULFA. FAMILY HISTORY: No strong family history of premature coronary artery disease, stroke, or cancer. SOCIAL HISTORY: The patient lives with family. No history of alcohol abuse or drug abuse. She smokes about 1 pack per day. REVIEW OF SYSTEMS: All review of systems tried to review with the patient, but unable to review at this point because of altered mental status. CURRENT HOME MEDICATIONS: 1. DuoNeb q.6 hourly. 2. Symbicort two puff inhalation b.i.d. 3. Flonase nasal spray daily. 4. Amaryl 1 mg daily. 5. Levothyroxine 175 mcg p.o. daily. 6. Lisinopril 10 mg daily. 7. Singulair 10 mg daily. 8. Protonix 40 mg p.o. daily. EMERGENCY ROOM COURSE: The patient has been receiving ketamine injection, vancomycin, acyclovir, prednisone 50 mg, mupirocin application, Zoloft 25 mg, levothyroxine 50 mcg, lorazepam 2 mg, Benadryl 50 mg, and Haldol 5 mg. PHYSICAL EXAMINATION: VITAL SIGNS: Currently blood pressure 130/83, pulse 88, respiratory rate 16, temperature 99.5, and saturation 96% on room air. Weight 102 kg. GENERAL: The patient is currently awake, arousable, appears confused, sleepy. HEENT: Head; normocephalic, atraumatic. Eyes; pupils are round and reactive to light. No nystagmus. Oral cavity within normal limits. NECK: Supple. No JVD. No meningeal signs of irritation. LUNGS: Clear to auscultation without any rhonchi or rales. CARDIAC: S1 and S2 regular. No murmur. No gallop. No rub. ABDOMEN: Obesity noted. Bowel sounds present, nontender, nondistended. No organomegaly. No masses. EXTREMITIES: No edema. NEUROLOGIC: Grossly nonfocal examination though patient is confused and psychotic. She moves all 4 limbs with no focal neurological deficit noted. PSYCHIATRIC: Unable to assess at this point. SIGNIFICANT LABORATORY DATA: CBC; WBC 16.0, hemoglobin 15.6, and platelets 190. Sodium 136, potassium 3.6, chloride 103, carbon dioxide 22, BUN 18, creatinine 1.26, glucose 192, and calcium 9.0. LFT; AST 18, ALT 23, alkaline phosphatase 74, and albumin 4.0. TSH 82, free T4 of 0.45. CK of 308. Urinalysis unremarkable. Urine drug screen negative. Serum drug screen negative. EKG unremarkable. IMAGING DATA: CT brain negative for any acute intracranial process. The patient had recent chest x-ray on January 05, which was unremarkable. ASSESSMENT AND PLAN: IMPRESSION: 1. Acute metabolic encephalopathy. 2. Leukocytosis, rule out sepsis. 3. Hypothyroidism, uncontrolled. 4. Mild acute kidney injury. 5. Chronic obstructive pulmonary disease/asthma. 6. Diabetes, type 2. 7. Hypertension. 8. Anxiety/depression/bipolar disorder. 9. Tobacco abuse disorder. 10. Hypertension. 11. Gastroesophageal reflux disease. PLAN AND DISCUSSION: At this point, the patient is admitted for mainly altered mental status. We are suspicious for underlying psychosis. She does not have any meningeal signs of irritation, so meningitis is less likely, but given leukocytosis, herpes encephalitis is possible and that is why we will start empiric acyclovir for now and lumbar puncture is planned if possible and based on lumbar puncture finding, we will discontinue acyclovir if needed. We will also continue vancomycin as pharmacy adjusted dose until CSF result available. Our suspicion for acute infectious process is less likely, but needs to be excluded. Leukocytosis can be explained by her aggression and psychosis, which is already improving and we will follow up on culture results, which was done in the emergency room. She will be given IV fluids for mild acute kidney injury and we will restart her levothyroxine 175 mcg p.o. daily given uncontrolled hypothyroidism and we are suspicious for her ongoing noncompliance with the treatment. We will provide diabetic diet. We will provide insulin as per sliding scale per protocol. We will continue with DuoNeb and Dulera while in hospital, and we will verify her home medication and resume while in hospital. DVT prophylaxis, Lovenox 40 mg subcu daily. Gastrointestinal prophylaxis, Protonix 40 mg p.o. daily. Code status, the patient is full code. Disposition plan based on clinical course. We are expecting the patient to stay in the hospital for more than 2 midnights. Plan of care discussed with the patient. Job ID: [id number]
[2020-01-15] MEDS ORDERED: Ondansetron ODT 4 MG TAB PO PRN (10:50)
[2020-01-15] MEDS ORDERED: hydrALAZINE 20 MG/ML VIAL SLOW IVP PRN (10:50)
[2020-01-15] MEDS ORDERED: Dextrose 5% in Water 1,000 ML IV PRN (10:50)
[2020-01-15] MEDS ORDERED: Ondansetron PF 4 MG/2 ML Vial IVP PRN (10:50)
[2020-01-15] MEDS ORDERED: Loratadine 10 MG TAB PO PRN (10:50)
[2020-01-15] MEDS ORDERED: Bisacodyl 10 MG SUPP PR PRN (10:50)
[2020-01-15] MEDS ORDERED: Loperamide HCl 2 MG CAP PO PRN (10:50)
[2020-01-15] MEDS ORDERED: Lorazepam 2 MG/ML VIAL SLOW IVP PRN (10:50)
[2020-01-15] MEDS ORDERED: Cepastat Lozenges 1 LOZ PO PRN (10:50)
[2020-01-15] MEDS ORDERED: Sodium Chloride 0.65% Nasal 44 ML BOT EA NARE PRN (10:50)
[2020-01-15] MEDS ORDERED: Zolpidem Tartrate 5 MG TAB PO PRN (10:50)
[2020-01-15] MEDS ORDERED: Calcium Carbonate 500 MG ChewTAB PO PRN (10:50)
[2020-01-15] MEDS ORDERED: Haloperidol Lactate 5 MG/ML VIAL SLOW IVP PRN (10:50)
[2020-01-15] MEDS ORDERED: Acetaminophen 325 MG TAB PO PRN (10:50)
[2020-01-15] MEDS ORDERED: Dextrose 50% Abboject 50 ML SYRINGE SLOW IVP PRN (10:50)
[2020-01-15] MEDS ORDERED: Diabetic Tussin 200 MG/10 ML UDCUP PO PRN (10:50)
[2020-01-15] MEDS ORDERED: Senokot S 8.6-50 MG TAB PO PRN (10:50)
[2020-01-15] MEDS ORDERED: HumaLOG 300 UNITS/3 ML VIAL SC PRN ×2 (10:50)
[2020-01-15] MEDS ORDERED: Guaifenesin DM 100-10/5 ML UDCUP PO PRN (10:50)
[2020-01-15] MEDS ORDERED: Enoxaparin Sodium 40 MG/0.4 ML SYRINGE SC SCH (12:00)
[2020-01-15] MEDS ORDERED: Levothyroxine 175 MCG TAB PO SCH (12:00)
[2020-01-15] MEDS ORDERED: Acyclovir Sodium 1,000 MG in Sodium Chloride 0.9% 100 ML IVPB SCH (13:00)
[2020-01-15 13:52] VITALS: BMI 37.3
[2020-01-15] MEDS: Sodium Chloride 0.9% 1,000 ML IV SCH (14:01)
[2020-01-15] MEDS: Vancomycin 1.5 GRAM/300 ML BAG 1.5 GM in Premix Bag 1 BAG IVPB SCH (14:38)
[2020-01-15] MEDS: Mometasone 200 MCG/Formoterol 5 MCG 120 PUFF INHALER INH SCH (18:29)
[2020-01-15] MEDS: HYDROcodone/Acetaminophen 5/325 mg Tablet PO PRN (23:16)
[2020-01-16] MEDS: Sodium Chloride 0.9% 1,000 ML IV SCH ×3 (05:21→08:49)
[2020-01-16] MEDS ORDERED: Levothyroxine 175 MCG TAB PO SCH (06:00)
[2020-01-16] MEDS ORDERED: Levothyroxine Sodium 50 MCG TAB PO SCH (06:00)
[2020-01-16 06:24] LABS: #Basophils 0.1 thou/uL (0.0-0.2); #Eosinphils 0.4 thou/uL (0.0-0.7); #Monocytes 0.9 thou/uL (0.11-0.59); %Basophils 0.5 % (0.0-1.0); %Eosinophils 2.4 % (0.0-10.0); %Lymphocytes 27.1 % (21.0-51.0); Mean Corpuscular Hemoglobin 29.9 pg (27.0-31.0); Mean Corpuscular Volume 88.1 fL (78.0-98.0); Platelet Count 212 thou/uL (130-400); RBC Distribution Width 13.5 % (11.5-14.5); Red Blood Cell (RBC) Count 5.01 mill/uL (4.20-5.40); White Blood Cell (WBC) Count 18.4 thou/uL (4.8-10.8)
[2020-01-16] MEDS ORDERED: Lisinopril 10 MG TAB PO SCH (06:30)
[2020-01-16 06:45] LABS: ALT (SGPT) 23 U/L (8-55); AST (SGOT) 24 U/L (5-34); Albumin 4.1 g/dL (3.5-5.0); Alkaline Phosphatase 67 U/L (40-110); Anion Gap 14 mmol/L (10-20); BUN (Urea Nitrogen) 10 mg/dL (7.0-18.7); Bilirubin, Total 0.5 mg/dL (0.2-1.2); Calc. Creatinine Clearance 110 mL/min (70-130); Calcium 8.7 mg/dL (7.8-10.44); Carbon Dioxide 24 mmol/L (22-29); Chloride 103 mmol/L (98-107); Estimated GFR-MDRD 62; Globulin 2.7 g/dL (2.4-3.5); Glucose 126 mg/dL (70-105); Potassium 3.8 mmol/L (3.5-5.1); Protein, Total 6.8 g/dL (6.0-8.3); Sodium 137 mmol/L (136-145)
[2020-01-16] MEDS: Mometasone 200 MCG/Formoterol 5 MCG 120 PUFF INHALER INH SCH (07:30)
[2020-01-16] MEDS ORDERED: Enoxaparin Sodium 40 MG/0.4 ML SYRINGE SC SCH (09:00)
[2020-01-16] MEDS: HYDROcodone/Acetaminophen 5/325 mg Tablet PO PRN (10:22)
[2020-01-16] MEDS: Vancomycin 1.5 GRAM/300 ML BAG 1.5 GM in Premix Bag 1 BAG IVPB SCH ×2 (12:12→14:04)
[2020-01-16] MEDS ORDERED: Nicotine 14 MG PATCH TOP SCH (13:00)
--- NOTE | 2020-01-16 15:06 | EKG ---
Test Reason : Blood Pressure : / mmHG Vent. Rate : 107 BPM Atrial Rate : 107 BPM P-R Int : 156 ms QRS Dur : 086 ms QT Int : 354 ms P-R-T Axes : 061 078 070 degrees QTc Int : 472 ms Sinus tachycardia Septal infarct , age undetermined Abnormal ECG Confirmed by FRANKI ARAIZA, CARLEY ([id number]), school photograph editor JOSE LUIS ARRIOLA ([id number]) on 01/16/2020 3:05:37 PM Referred By: Confirmed By:CARLEY DOAN MD
--- NOTE | 2020-01-16 16:10 | PDOC.HOSPP ---
- Subjective Encounter Date: 01/16/20 Encounter Time: 16:00 Subjective: f/u for acute psychosis/AMS of unclear etiology. Overall pt states she feels ok. Nursing reports that pt stated that "witches and warlocks possessed her." - Objective Vital Signs & Weight: Vital Signs (12 hours) Temp Pulse Resp BP BP Pulse Ox 01/16/20 13:54 90 14 01/16/20 12:00 98.9 F 100 20 123/75 93 L 01/16/20 08:00 98.2 F 99 18 140/73 93 L 01/16/20 07:31 110 H 14 01/16/20 06:50 147/87 H Weight Weight 204 lb I&O: 01/15/20 01/16/20 01/17/20 06:59 06:59 06:59 Intake Total 2510 Balance 2510 Result Diagrams: 01/16/20 05:53 01/16/20 05:53 Additional Labs: Accuchecks 01/16/20 01/15/20 01/15/20 03:48 21:52 16:05 POC Glucose 120 H 121 H 170 H Microbiology 01/15/20 05:48 Venous blood - Left Hand Blood Culture - Preliminary Specimen has been received and culture in progress. No Growth to date. 01/15/20 05:44 Venous blood - Right Arm Blood Culture - Preliminary Specimen has been received and culture in progress. No Growth to date. 01/15/20 03:53 Urine Straight Catheter Urine Culture - Preliminary NO GROWTH AT 24 HOURS Laboratory Tests 01/15/20 01/15/20 01/15/20 02:49 02:49 02:49 WBC 20.3 H Creatinine 1.26 H Free T4 TSH 3rd Generation 82.5032 H Urine Test 01/15/20 01/15/20 01/15/20 02:49 03:58 05:44 WBC 16.0 H Creatinine Free T4 0.45 L TSH 3rd Generation Urine Test Negative Radiology Reviewed by me: Yes (CT brain - no acute process) Hospitalist ROS - Medication Medications: Active Medications Generic Name Dose Route Start Last Admin Trade Name Freq PRN Reason Stop Dose Admin Acetaminophen 650 mg 01/15/20 10:50 01/16/20 14:29 Tylenol PO 650 mg Q4H PRN Administration Headache/Fever/Mild Pain (1-3) Hydrocodone Bitart/Acetaminophen 1 tab 01/15/20 10:50 01/16/20 10:22 Farnam 5/325 PO 1 tab Q4H PRN Administration Moderate Pain (4-6) Albuterol/Ipratropium 3 ml 01/15/20 13:00 01/16/20 13:54 Duoneb NEB 3 ml [id number] BOB Administration Enoxaparin Sodium 40 mg 01/16/20 09:00 01/16/20 08:37 Lovenox SC 40 mg 0900 BOB Administration Hydralazine HCl 10 mg 01/15/20 10:50 01/15/20 23:26 Apresoline SLOW IVP 10 mg Q4H PRN Administration SBP > 180 and HR < 70 Sodium Chloride 1,000 mls @ 75 mls/hr 01/15/20 10:50 01/16/20 08:49 Normal Saline 0.9% IV 1,000 mls .[id number] BOB Administration Vancomycin HCl 1.5 gm/ Device 300 mls @ 200 mls/hr 01/15/20 12:00 01/16/20 14 :04 IVPB Not Given 1200 BOB Acyclovir Sodium 500 mg/ 110 mls @ 91.667 mls/hr 01/15/20 14:00 01/16/20 14: 29 Sodium Chloride IVPB 110 mls Q8HR BOB Administration Levothyroxine Sodium 175 mcg 01/16/20 06:00 01/16/20 05:46 Synthroid PO 175 mcg 0600 BOB Administration Mometasone Furoate/Formoterol Fumar 2 puff 01/15/20 18:30 01/16/20 07:30 Dulera 200 Mcg/5 Mcg Inhaler INH 2 puff BID-RT BOB Administration Nicotine 14 mg 01/16/20 13:00 01/16/20 13:05 Nicoderm Patch TOP 14 mg Q24HR BOB Administration Pantoprazole Sodium 40 mg 01/16/20 09:00 01/16/20 08:37 Protonix PO 40 mg DAILY BOB Administration - Exam General Appearance: NAD, awake alert Eye: PERRL, anicteric sclera ENT: normocephalic atraumatic, no oropharyngeal lesions Neck: supple, symmetric, no JVD, no thyromegaly Heart: RRR, no murmur, no gallops, no rubs, normal peripheral pulses Heart - other findings: S1, S2 Respiratory: CTAB, no wheezes, no rales, no ronchi, normal chest expansion Gastrointestinal: soft, non-tender, non-distended, normal bowel sounds, no palpable masses Extremities: no cyanosis, no clubbing, no edema Skin: normal turgor, no lesions Neurological: cranial nerve grossly intact Musculoskeletal: normal tone, normal strength, no muscle wasting Psychiatric: A&O x 3 Psychiatric - other findings: anxious Hosp A/P (1) Acute metabolic encephalopathy Code(s): G93.41 - METABOLIC ENCEPHALOPATHY Status: Acute Plan: Unclear etiology, likely multifactorial, consult [facility] for dispo planning (2) Acute psychosis Code(s): F23 - BRIEF PSYCHOTIC DISORDER Status: Acute Plan: Mild improvement, [facility] consult, Ativan PRN (3) Hypothyroid Code(s): E03.9 - HYPOTHYROIDISM, UNSPECIFIED Status: Chronic Plan: Titrate Synthroid as current TSH uncontrolled (4) DM II (diabetes mellitus, type II), controlled Code(s): E11.9 - TYPE 2 DIABETES MELLITUS WITHOUT COMPLICATIONS Status: Chronic (5) Tobacco abuse Code(s): Z72.0 - TOBACCO USE Status: Chronic Plan: Tobacco cessation resources, Nicotine patch - Plan social security assessor, out of bed/ambulate, DVT proph w/SCDs Stable currently [facility] evaluation for recommendations Consult Case mgmt Resume home meds Continue Levothyroxine 175mcg daily Sitter for 1:1
--- NOTE | 2020-01-16 18:52 | DIS ---
DATE OF ADMISSION: 01/15/2020 DATE OF DISCHARGE: 01/16/2020 DISCHARGE DIAGNOSES: 1. Acute metabolic encephalopathy, multifactorial, resolving. 2. Acute psychosis, resolving. 3. Hypothyroidism, uncontrolled. 4. Tobacco abuse. 5. Diabetes mellitus, type 2. 6. Anxiety/depression. CONSULTATIONS: [facility] Service. PERTINENT LABORATORY AND X-RAY FINDINGS: TSH 82.5. Free T4 of 0.45. Creatinine ranged between 0.99 to 1.26. CBC showed a white blood cell count ranging between 16.0 to 20.3. Urine drug screen dated 01/15/2020, negative. Plasma alcohol level less than 10 on 01/15/2020. Blood cultures x2 dated 01/15/2020, showed no growth to date. Urine culture dated 01/15/2020, showed no growth at [address] of the brain without contrast dated 01/15/2020, showed no acute intracranial process. HOSPITAL COURSE: The patient was initially admitted to the medical floor after presenting with altered mental status in the context of depression and bipolar disorder. The patient was initially managed for an acute psychosis, receiving Haldol, IV fluids, lorazepam, ketamine, Benadryl as well as empiric antibiotics with Rocephin, acyclovir, and vancomycin after concern for potential meningitis picture. The patient's presentation consistent with acute psychosis in the context of bipolar disorder and depression with anxiety and noncompliance with medication regimen. The patient was given a sitter for one-on-one observation and clinically stabilized without further intervention. The patient was cleared medically, being evaluated by the [facility] Service, deeming the patient stable for discharge home with outpatient followup with [facility] Services. I have examined the patient at the time of discharge and discussed followup instructions. The patient verbalized understanding and agreement with safety plan in place after discussions with the patient and [facility] Services. The patient ready for discharge on 01/16/2020. DISCHARGE MEDICATIONS: 1. Trazodone 50 mg p.o. at bedtime. 2. Hydroxyzine 25 mg p.o. b.i.d. 3. Zoloft 25 mg p.o. daily. 4. Levothyroxine 175 mcg p.o. daily. FOLLOWUP: The patient may follow up with [facility] in 3 days. The patient will follow up with Dr. Juan with [facility] Services on 01/21/2020 at 12:30 p.m. CONDITION ON DISCHARGE: Stable. ACTIVITY: Ad-frederick. DIET: ADA. CODE STATUS: Full. DISPOSITION: Home on 01/16/2020. TIME SPENT: Total time in preparing and coordinating discharge, 32 minutes. Job ID: [id number]
[2020-01-16 20:31] VITALS: BP 133/97; TEMP 98.8
[2020-01-16] MEDS ORDERED: Montelukast Sodium 10 mg Tablet PO SCH (21:00)
[2020-01-17] MEDS ORDERED: Montelukast Sodium 10 mg Tablet PO SCH (09:00)
== END 2020-01-16 20:55 | disposition home or self-care (01) | DRG 643 ==
LOC: ERS 01:53 → T4-B 07:41
PROVIDERS: ADMIT Internal Medicine; ATTEND Internal Medicine
DX: E03.9 Hypothyroidism, unspecified (principal); G93.41 Metabolic encephalopathy; F23 Brief psychotic disorder; N17.9 Acute kidney failure, unspecified; F31.9 Bipolar disorder, unspecified; F41.9 Anxiety disorder, unspecified; I10 Essential (primary) hypertension; E78.5 Hyperlipidemia, unspecified; E11.9 Type 2 diabetes mellitus without complications; J44.9 Chronic obstructive pulmonary disease, unspecified; G40.909 Epilepsy, unspecified, not intractable, without status epilepticus; F17.210 Nicotine dependence, cigarettes, uncomplicated; K21.9 Gastro-esophageal reflux disease without esophagitis; E66.9 Obesity, unspecified; Z79.82 Long term (current) use of aspirin; Z88.0 Allergy status to penicillin; Z91.14 Patient's other noncompliance with medication regimen; Z88.8 Allergy status to other drugs, medicaments and biological substances; Z88.1 Allergy status to other antibiotic agents; Z88.2 Allergy status to sulfonamides; Z91.013 Allergy to seafood; Z79.890 Hormone replacement therapy; Z79.52 Long term (current) use of systemic steroids; Z79.51 Long term (current) use of inhaled steroids; Z68.37 Body mass index [BMI] 37.0-37.9, adult
CPT/HCPCS: 36415; 36416; 51701; 70450; 80053; 80306; 80307; 81003; 81015; 81025; 82550; 84439; 84443; 85025; 87040; 87086; 93005; 94640; 96365; 96367; 96372; 96375; 99152; J0133; J0360; J1200; J1630; J1650; J2060; J2250; J3370; J3490; J7050; J7620

== ENCOUNTER 2020-02-12 21:19 | Emergency (ER) | payer MEDICARE, OTHER ==
[2020-02-12 22:24] LABS: #Basophils 0.1 thou/uL (0.0-0.2); #Eosinphils 0.3 thou/uL (0.0-0.7); #Monocytes 0.8 thou/uL (0.11-0.59); %Basophils 0.5 % (0.0-1.0); %Eosinophils 2.2 % (0.0-10.0); %Lymphocytes 26.2 % (21.0-51.0); %Monocytes 5.3 % (0.0-10.0); %Neutrophils 65.8 % (42.0-75.0); Hemoglobin 15.3 g/dL (12.0-16.0); Mean Corpuscular HGB CONC 33.2 g/dL (32.0-36.0); Mean Corpuscular Hemoglobin 29.2 pg (27.0-31.0); Mean Corpuscular Volume 87.9 fL (78.0-98.0); Mean Platelet Volume 11.3 fL (7.4-10.4); Platelet Count 199 thou/uL (130-400); RBC Distribution Width 13.2 % (11.5-14.5); Red Blood Cell (RBC) Count 5.23 mill/uL (4.20-5.40); White Blood Cell (WBC) Count 15.1 thou/uL (4.8-10.8)
[2020-02-12 22:29] LABS: BHCG - Serum Negative (NEGATIVE); Pregs Control Bar Appear? YES (CONTROL BAR)
[2020-02-12 22:30] LABS: Pregs Control Background? CLEAR/WHITE (CLR/WHITE)
[2020-02-12 22:44] LABS: ALT (SGPT) 19 U/L (8-55); AST (SGOT) 21 U/L (5-34); Albumin 4.3 g/dL (3.5-5.0); Alkaline Phosphatase 89 U/L (40-110); Anion Gap 15 mmol/L (10-20); BUN (Urea Nitrogen) 19 mg/dL (7.0-18.7); Bilirubin, Total 0.2 mg/dL (0.2-1.2); CK (CPK) 172 U/L (29-168); Calc. Creatinine Clearance 0 mL/min (70-130); Calcium 9.8 mg/dL (7.8-10.44); Carbon Dioxide 26 mmol/L (22-29); Chloride 101 mmol/L (98-107); Estimated GFR-MDRD 52; Globulin 3.3 g/dL (2.4-3.5); Glucose 101 mg/dL (70-105); Potassium 3.9 mmol/L (3.5-5.1); Protein, Total 7.6 g/dL (6.0-8.3); Sodium 138 mmol/L (136-145)
--- NOTE | 2020-02-13 00:20 | RAD ---
EXAM: Two views chest PROVIDED CLINICAL HISTORY: Dyspnea. COMPARISON: 01/06/2020 FINDINGS: Cardiac silhouette and pulmonary vasculature are within normal limits. The lungs are clear. There is suggestion of Hill-Sachs deformity involving the left humeral head, but the humeral head is rotated and there is limited evaluation. This was present on prior exam. Chest is stable compared to the prior study. IMPRESSION: No acute cardiopulmonary process.
[2020-02-13] MEDS ORDERED: Albuterol 200 PUFF (6.7GM INHALER) ONE (00:31)
[2020-02-13] MEDS ORDERED: Azithromycin 250 MG TAB ONE (00:32)
[2020-02-13] MEDS ORDERED: Clopidogrel Bisulfate 75 MG TAB ONE (00:32)
[2020-02-13] MEDS ORDERED: Dexamethasone 10 MG/ML VIAL ONE (00:32)
[2020-02-15 12:54] LABS: SARS-CoV-2 MS2 Positive; SARS-CoV-2 N Gene Negative; SARS-CoV-2 S Gene Negative; SARS-CoV-2 orf1ab Negative
== END 2020-02-13 01:43 | disposition home or self-care (01) ==
LOC: ERS 21:19
DX: Z20.828 Contact with and (suspected) exposure to other viral communicable diseases (principal); J45.901 Unspecified asthma with (acute) exacerbation; I10 Essential (primary) hypertension; E11.9 Type 2 diabetes mellitus without complications; J44.9 Chronic obstructive pulmonary disease, unspecified; E03.9 Hypothyroidism, unspecified; E78.5 Hyperlipidemia, unspecified; E66.9 Obesity, unspecified; E78.6 Lipoprotein deficiency; F41.9 Anxiety disorder, unspecified; F31.9 Bipolar disorder, unspecified; Z79.899 Other long term (current) drug therapy
CPT/HCPCS: 71046; 80053; 82550; 83880; 84484; 84703; 85025; 93005; U0003; 87635; 96360; 96361; J1100

== ENCOUNTER 2020-03-04 17:52 | Emergency (ER) | payer MEDICARE, OTHER ==
[2020-03-04] MEDS ORDERED: Acetaminophen 500 MG TAB ONE (19:39)
--- NOTE | 2020-03-04 19:51 | CT ---
CT HEAD WITHOUT CONTRAST: 03/04/20 INDICATIONS: Headache. Comparison made to a recent head CT of 01/15/20. Ventricles remain normal size and position. No intracranial mass or hemorrhage. No edema or infarct. No interval change in the appearance of the brain. IMPRESSION: No acute finding. POS: AGW
== END 2020-03-04 19:45 | disposition home or self-care (01) ==
LOC: ERS 17:52
DX: R51 Headache (principal); E66.9 Obesity, unspecified; J44.9 Chronic obstructive pulmonary disease, unspecified; I10 Essential (primary) hypertension; E03.9 Hypothyroidism, unspecified; E11.9 Type 2 diabetes mellitus without complications; E78.5 Hyperlipidemia, unspecified; F41.9 Anxiety disorder, unspecified; F31.9 Bipolar disorder, unspecified; Z79.899 Other long term (current) drug therapy
CPT/HCPCS: 70450

== ENCOUNTER 2020-08-14 12:37 | Emergency (ER) | payer MEDICARE, OTHER ==
[~2020-08-14 12:37] MED LIST: Iopamidol-370 76% 500 ML 1 ML ONE
[2020-08-14] MEDS ORDERED: methylPREDNISolone Sod Succ/PF 125 MG/2 ML VIAL ONE (13:22)
[2020-08-14] MEDS ORDERED: Albuterol 200 PUFF (6.7GM INHALER) ONE (13:36)
[2020-08-14 14:26] LABS: #Basophils 0.1 thou/uL (0.0-0.2); #Eosinphils 0.6 thou/uL (0.0-0.7); #Lymphocytes 4.1 thou/uL (1.20-3.40); #Monocytes 0.8 thou/uL (0.11-0.59); %Basophils 0.6 % (0.0-1.0); %Eosinophils 4.2 % (0.0-10.0); %Lymphocytes 30.1 % (21.0-51.0); %Monocytes 6.2 % (0.0-10.0); %Neutrophils 58.9 % (42.0-75.0); Hemoglobin 13.6 g/dL (12.0-16.0); Mean Corpuscular HGB CONC 31.6 g/dL (32.0-36.0); Mean Corpuscular Hemoglobin 28.2 pg (27.0-31.0); Mean Corpuscular Volume 89.1 fL (78.0-98.0); Mean Platelet Volume 9.4 fL (7.4-10.4); Platelet Count 189 thou/uL (130-400); RBC Distribution Width 13.1 % (11.5-14.5); Red Blood Cell (RBC) Count 4.82 mill/uL (4.20-5.40); White Blood Cell (WBC) Count 13.6 thou/uL (4.8-10.8)
--- NOTE | 2020-08-14 14:28 | RAD ---
Chest one view HISTORY: Chest and arm pain. COMPARISON: 06/09/2020. FINDINGS: Cardiac silhouette and pulmonary vasculature are unremarkable. Mediastinum is midline. No c onfluent airspace consolidation or evidence of pneumothorax. IMPRESSION : No abnormalities are demonstrated.
--- NOTE | 2020-08-14 14:30 | RAD ---
Left shoulder 3 views HISTORY: Shoulder pain. COMPARISON: 02/14/2019. FINDINGS: Acromioclavicular and glenohumeral alignment are maintained allowing for rotation of the sc apula on the imaging. Degenerative changes are present including articular surface cortical surface irregularity about the greater tuberosity. Large Hill-Sachs deformity is present at the lateral aspec t of the humeral head. No acute fracture or dislocation. IMPRESSION : No acute abnormalities are demonstrated.
[2020-08-14 14:53] LABS: ALT (SGPT) 19 U/L (8-55); AST (SGOT) 22 U/L (5-34); Alkaline Phosphatase 79 U/L (40-110); Anion Gap 17 mmol/L (10-20); BUN (Urea Nitrogen) 10 mg/dL (7.0-18.7); Bilirubin, Total 0.2 mg/dL (0.2-1.2); Calc. Creatinine Clearance 0 mL/min (70-130); Calcium 8.8 mg/dL (7.8-10.44); Carbon Dioxide 24 mmol/L (22-29); Chloride 102 mmol/L (98-107); Globulin 3.7 g/dL (2.4-3.5); Glucose 102 mg/dL (70-105); Potassium 4.6 mmol/L (3.5-5.1); Protein, Total 7.7 g/dL (6.0-8.3); Sodium 138 mmol/L (136-145)
--- NOTE | 2020-08-14 16:49 | CT ---
CT arteriogram chest with IV contrast and 3-D imaging HISTORY: Dyspnea. Chest pain. FINDINGS: There is good contrast opacification pulmonary arteries and thoracic aorta with normal bran lazaro great vessels at the aortic arch. No lobar consolidation. No pleural fluid or pneumothorax. No mediastinal adenopathy. Small area of mild cystic bronchiectasis noted within the central aspect of the right upper lobe. IMPRESSION : No acute abnormalities are demonstrated. No evidence of pulmonary embolus.
[2020-08-14 17:44] LABS: SARS-CoV-2 MS2 Positive; SARS-CoV-2 N Gene Negative; SARS-CoV-2 S Gene Negative; SARS-CoV-2 by NAA Not Detected (NotDetected); SARS-CoV-2 orf1ab Negative
== END 2020-08-14 16:59 | disposition home or self-care (01) ==
LOC: ERS 12:37
DX: J44.1 Chronic obstructive pulmonary disease with (acute) exacerbation (principal); M25.512 Pain in left shoulder; I10 Essential (primary) hypertension; E11.9 Type 2 diabetes mellitus without complications; J44.9 Chronic obstructive pulmonary disease, unspecified; E78.6 Lipoprotein deficiency; E03.9 Hypothyroidism, unspecified; J45.909 Unspecified asthma, uncomplicated; E78.5 Hyperlipidemia, unspecified; E66.9 Obesity, unspecified; F17.210 Nicotine dependence, cigarettes, uncomplicated; Z79.899 Other long term (current) drug therapy
CPT/HCPCS: 71045; 71275; 73030; 80053; 83880; 84484; 85025; 85379; 93005; 94664; U0003; 36415; 87635; 96374; J2930; Q9967

== ENCOUNTER 2021-12-02 23:58 | Emergency (ER) | payer MEDICARE, MEDICAID ==
[2021-12-03] MEDS ORDERED: Acetaminophen 500 MG TAB ONE (02:37)
== END 2021-12-03 03:06 | disposition home or self-care (01) ==
LOC: ERS 23:58
DX: R51.9 Headache, unspecified (principal); W22.8XXA Striking against or struck by other objects, initial encounter
CPT/HCPCS: 99284

== ENCOUNTER 2022-09-02 21:05 | Emergency (ER) | payer OTHER | END 2022-09-02 22:50 | disposition home or self-care (01) | LOC: ERS 21:05 | DX: B37.2 Candidiasis of skin and nail (principal); J44.9 Chronic obstructive pulmonary disease, unspecified; E11.9 Type 2 diabetes mellitus without complications; Z79.899 Other long term (current) drug therapy | CPT/HCPCS: 99283 ==

== ENCOUNTER 2022-09-13 07:27 | Emergency (ER) | payer OTHER ==
[2022-09-13] MEDS ORDERED: Bupivacaine 0.25% 10 ML VIAL ONE (07:36)
[2022-09-13] MEDS ORDERED: HYDROcodone/Acetaminophen 5/325 mg Tablet ONE (08:01)
== END 2022-09-13 08:07 | disposition home or self-care (01) ==
LOC: ERS 07:27
DX: K08.89 Other specified disorders of teeth and supporting structures (principal)
CPT/HCPCS: 64400; S0020

== ENCOUNTER 2022-11-03 21:25 | Emergency (ER) | payer OTHER | END 2022-11-04 01:24 | disposition left against medical advice (07) | LOC: ERS 21:25 | DX: Z53.21 Procedure and treatment not carried out due to patient leaving prior to being seen by health care provider (principal) ==

== ENCOUNTER 2022-11-23 22:22 | Emergency (ER) | payer OTHER ==
[2022-11-24] MEDS ORDERED: LORazepam 2 MG/ML SYR.(CARPUJECT) ONE (01:56)
== END 2022-11-24 03:16 | disposition home or self-care (01) ==
LOC: ERS 22:22
DX: F41.9 Anxiety disorder, unspecified (principal); R25.1 Tremor, unspecified; Z79.899 Other long term (current) drug therapy
CPT/HCPCS: 82962; 96372; 99283; J2060; 36416

== ENCOUNTER 2023-08-19 15:20 | Inpatient (IN) | payer OTHER, MEDICAID ==
[2023-08-19] MEDS ORDERED: Iopamidol-370 76% 500 ML MDV (1 ML CHARGE) ONE (16:17)
[2023-08-19] MEDS ORDERED: Magnesium 2 GM/50 ML BAG (IN WATER) ONE (16:18)
[2023-08-19] MEDS ORDERED: predniSONE 20 MG TAB ONE (16:18)
[2023-08-19] MEDS ORDERED: Albuterol 2.5 MG (0.5 mL) NEB ONE (16:45)
[2023-08-19] MEDS ORDERED: Ipratropium/Albuterol 3 ML NEB ONE (16:45)
[2023-08-19 17:42] LABS: SARS-CoV-2 NAA Rapid Test Not Detected (NotDetected)
[2023-08-19 17:48] LABS: #Monocytes 0.5 thou/uL (0.11-0.59); #Neutrophils 12.8 thou/uL (1.40-6.50); %Basophils 0.1 % (0.0-1.0); %Eosinophils 0.1 % (0.0-10.0); %Lymphocytes 5.3 % (21.0-51.0); %Monocytes 3.6 % (0.0-10.0); %Neutrophils 90.1 % (42.0-75.0); Hematocrit 39.2 % (36.0-47.0); Hemoglobin 12.5 g/dL (12.0-16.0); Mean Corpuscular HGB CONC 31.9 g/dL (32.0-36.0); Mean Corpuscular Hemoglobin 29.4 pg (27.0-31.0); Mean Corpuscular Volume 92.2 fl (78.0-98.0); Mean Platelet Volume 10.5 fL (7.4-10.4); Platelet Count 193 10x3/uL (130-400); RBC Distribution Width 14.5 % (11.5-14.5); Red Blood Cell (RBC) Count 4.25 mill/uL (4.20-5.40); White Blood Cell (WBC) Count 14.2 10x3/uL (4.8-10.8)
[2023-08-19 18:06] LABS: ALT (SGPT) 11 U/L (8-55); AST (SGOT) 13 U/L (5-34); Albumin 3.8 g/dL (3.5-5.0); Alkaline Phosphatase 61 U/L (40-110); Anion Gap 14 mmol/L (10-20); BUN (Urea Nitrogen) 9 mg/dL (7.0-18.7); Bilirubin, Total 0.6 mg/dL (0.2-1.2); Calc. Creatinine Clearance 0 mL/min (70-130); Calcium 8.5 mg/dL (7.8-10.44); Carbon Dioxide 25 mmol/L (22-29); Chloride 100 mmol/L (98-107); Estimated GFR 84; Globulin 3.5 g/dL (2.4-3.5); Glucose 127 mg/dL (70-105); Lipase 9 U/L (8-78); Magnesium 4.4 mg/dL (1.6-2.6); Potassium 3.6 mmol/L (3.5-5.1); Protein, Total 7.3 g/dL (6.0-8.3); Sodium 135 mmol/L (136-145)
[2023-08-19 18:09] LABS: Troponin I Less than 0.010 ng/mL (< 0.028)
[2023-08-19 19:08] LABS: BHCG - Serum Negative (NEGATIVE); Pregs Control Background? CLEAR/WHITE (CLR/WHITE); Pregs Control Bar Appear? YES (CONTROL BAR)
[2023-08-19] MEDS ORDERED: LevoFLOXacin 750 mg/D5W 150 ml Premix Bag ONE (23:32)
[2023-08-20] MEDS ORDERED: Ipratropium/Albuterol 3 ML NEB ONE ×4 (02:11→14:10)
[2023-08-20] MEDS: Ipratropium/Albuterol 3 ML NEB NEB SCH ×2 (02:16→07:46)
[2023-08-20] MEDS ORDERED: Ondansetron PF 4 MG/2 ML Vial IVP PRN (06:06)
[2023-08-20] MEDS ORDERED: Ipratropium/Albuterol 3 ML NEB EZPAP PRN (06:08)
[2023-08-20 06:43] LABS: #Monocytes 0.5 thou/uL (0.11-0.59); #Neutrophils 11.8 thou/uL (1.40-6.50); %Basophils 0.1 % (0.0-1.0); %Lymphocytes 6.7 % (21.0-51.0); %Monocytes 3.6 % (0.0-10.0); %Neutrophils 89.1 % (42.0-75.0); Hematocrit 37.8 % (36.0-47.0); Hemoglobin 12.1 g/dL (12.0-16.0); Mean Corpuscular Hemoglobin 28.9 pg (27.0-31.0); Mean Corpuscular Volume 90.4 fl (78.0-98.0); Mean Platelet Volume 10.5 fL (7.4-10.4); Platelet Count 207 10x3/uL (130-400); RBC Distribution Width 14.4 % (11.5-14.5); Red Blood Cell (RBC) Count 4.18 mill/uL (4.20-5.40); White Blood Cell (WBC) Count 13.2 10x3/uL (4.8-10.8)
[2023-08-20] MEDS ORDERED: Ipratropium/Albuterol 3 ML NEB NEB SCH (07:00)
[2023-08-20 07:23] LABS: Anion Gap 14 mmol/L (10-20); BUN (Urea Nitrogen) 12 mg/dL (7.0-18.7); Calc. Creatinine Clearance 109 mL/min (70-130); Calcium 8.9 mg/dL (7.8-10.44); Carbon Dioxide 26 mmol/L (22-29); Chloride 101 mmol/L (98-107); Estimated GFR 71; Glucose 150 mg/dL (70-105); Potassium 4.1 mmol/L (3.5-5.1); Sodium 137 mmol/L (136-145)
[2023-08-20] MEDS ORDERED: LEVOTHYROXINE SODIUM 200 MCG PO SCH (09:00)
[2023-08-20] MEDS ORDERED: Lisinopril 20 MG TAB ONE (09:07)
[2023-08-20] MEDS ORDERED: Sertraline 25 MG TAB ONE (09:07)
[2023-08-20] MEDS ORDERED: methylPREDNISolone Sod Succ 40 MG VIAL ONE (09:07)
[2023-08-20] MEDS ORDERED: Enoxaparin 40 MG (0.4 mL) SYRINGE ONE (09:07)
[2023-08-20] MEDS: Lisinopril 20 MG TAB PO SCH (11:19)
[2023-08-20] MEDS: methylPREDNISolone Sod Succ 40 MG VIAL IVP SCH (11:19)
[2023-08-20] MEDS: Sertraline 100 MG TAB PO SCH (11:19)
[2023-08-20] MEDS: Enoxaparin 40 MG (0.4 mL) SYRINGE SC SCH (11:19)
[2023-08-20 17:37] VITALS: BMI 38.9
[2023-08-20] MEDS: Rosuvastatin 10 MG TAB PO SCH (20:13)
[2023-08-20 22:01] LABS: Legionella Urinary Ag Negative (Negative)
[2023-08-20 22:02] LABS: Strep pneumo Urine Ag NEGATIVE (NEGATIVE)
[2023-08-20] MEDS: Nicotine 14 MG PATCH TD SCH (23:19)
[2023-08-20] MEDS: LevoFLOXacin 750 mg/D5W 750 MG in Premix 1 BAG IVPB SCH (23:20)
[2023-08-21 04:39] LABS: #Monocytes 0.3 thou/uL (0.11-0.59); #Neutrophils 10.4 thou/uL (1.40-6.50); %Basophils 0.2 % (0.0-1.0); %Lymphocytes 5.6 % (21.0-51.0); %Monocytes 2.4 % (0.0-10.0); %Neutrophils 91.1 % (42.0-75.0); Hematocrit 37.6 % (36.0-47.0); Hemoglobin 11.7 g/dL (12.0-16.0); Mean Corpuscular HGB CONC 31.1 g/dL (32.0-36.0); Mean Corpuscular Hemoglobin 28.7 pg (27.0-31.0); Mean Corpuscular Volume 92.2 fl (78.0-98.0); Mean Platelet Volume 10.9 fL (7.4-10.4); Platelet Count 203 10x3/uL (130-400); RBC Distribution Width 14.5 % (11.5-14.5); Red Blood Cell (RBC) Count 4.08 mill/uL (4.20-5.40); White Blood Cell (WBC) Count 11.5 10x3/uL (4.8-10.8)
[2023-08-21 05:06] LABS: Anion Gap 14 mmol/L (10-20); BUN (Urea Nitrogen) 12 mg/dL (7.0-18.7); Calc. Creatinine Clearance 126 mL/min (70-130); Calcium 8.6 mg/dL (7.8-10.44); Carbon Dioxide 28 mmol/L (22-29); Chloride 100 mmol/L (98-107); Estimated GFR 84; Glucose 212 mg/dL (70-105); Potassium 4.5 mmol/L (3.5-5.1); Sodium 137 mmol/L (136-145)
[2023-08-21] MEDS: Levothyroxine 175 MCG TAB PO SCH (05:09)
[2023-08-21] MEDS: methylPREDNISolone Sod Succ 40 MG VIAL IVP SCH (13:00)
[2023-08-21] MEDS: Acetaminophen 325 MG TAB PO PRN (20:26)
[2023-08-21] MEDS: hydrOXYzine 25 MG TAB PO PRN (20:27)
[2023-08-22 07:00] LABS: #Monocytes 0.3 thou/uL (0.11-0.59); #Neutrophils 11.2 thou/uL (1.40-6.50); %Basophils 0.1 % (0.0-1.0); %Lymphocytes 7.7 % (21.0-51.0); %Monocytes 2.5 % (0.0-10.0); %Neutrophils 88.9 % (42.0-75.0); Hematocrit 39.9 % (36.0-47.0); Hemoglobin 12.3 g/dL (12.0-16.0); Mean Corpuscular HGB CONC 30.8 g/dL (32.0-36.0); Mean Corpuscular Hemoglobin 28.5 pg (27.0-31.0); Mean Corpuscular Volume 92.6 fl (78.0-98.0); Mean Platelet Volume 10.9 fL (7.4-10.4); Platelet Count 223 10x3/uL (130-400); RBC Distribution Width 14.4 % (11.5-14.5); Red Blood Cell (RBC) Count 4.31 mill/uL (4.20-5.40); White Blood Cell (WBC) Count 12.6 10x3/uL (4.8-10.8)
[2023-08-22 07:44] LABS: Anion Gap 12 mmol/L (10-20); BUN (Urea Nitrogen) 17 mg/dL (7.0-18.7); Calc. Creatinine Clearance 111 mL/min (70-130); Calcium 8.9 mg/dL (7.8-10.44); Carbon Dioxide 32 mmol/L (22-29); Chloride 97 mmol/L (98-107); Estimated GFR 72; Glucose 153 mg/dL (70-105); Potassium 4.3 mmol/L (3.5-5.1); Sodium 137 mmol/L (136-145)
[2023-08-22 08:20] VITALS: BP 119/70; TEMP 98
[2023-08-23] MEDS ORDERED: FLU VACC QS2023-24(6MOS UP)/PF 60 MCG/0.5 ML SYRINGE IM ONE (09:00)
== END 2023-08-22 13:45 | disposition home or self-care (01) | DRG 193 ==
LOC: ERS 15:20 → OBSVTOIN 23:36 → ERHOLD 23:36 → T4-B 08-20 17:14
PROVIDERS: ADMIT Internal Medicine; ATTEND Hospitalist
DX: J18.9 Pneumonia, unspecified organism (principal); J96.21 Acute and chronic respiratory failure with hypoxia; J44.1 Chronic obstructive pulmonary disease with (acute) exacerbation; I10 Essential (primary) hypertension; E78.5 Hyperlipidemia, unspecified; F17.210 Nicotine dependence, cigarettes, uncomplicated; E03.9 Hypothyroidism, unspecified; K21.9 Gastro-esophageal reflux disease without esophagitis; Q05.9 Spina bifida, unspecified; Z98.890 Other specified postprocedural states; Z88.2 Allergy status to sulfonamides; Z88.0 Allergy status to penicillin; Z88.1 Allergy status to other antibiotic agents; Z88.8 Allergy status to other drugs, medicaments and biological substances; Z99.81 Dependence on supplemental oxygen; Z91.012 Allergy to eggs; Z91.013 Allergy to seafood; Z79.899 Other long term (current) drug therapy; Z79.51 Long term (current) use of inhaled steroids; Z82.49 Family history of ischemic heart disease and other diseases of the circulatory system; Z71.6 Tobacco abuse counseling; Z11.52 Encounter for screening for COVID-19
CPT/HCPCS: 36415; 71045; 71275; 80048; 80053; 83605; 83690; 83735; 84484; 84703; 85025; 87040; 87449; 87899; 93005; 94640; 94760; 96365; 96366; 96367; J1650; J1956; J2920; J3475; J7512; J7611; J7620; Q9967

== ENCOUNTER 2023-10-16 09:54 | Outpatient (CLI) | payer OTHER, MEDICAID | END 2023-10-16 09:55 | disposition home or self-care (01) | LOC: BICCT 09:54 | PROVIDERS: ATTEND Family Medicine | DX: M25.571 Pain in right ankle and joints of right foot (principal); M19.071 Primary osteoarthritis, right ankle and foot; M25.871 Other specified joint disorders, right ankle and foot; D17.79 Benign lipomatous neoplasm of other sites ==

== ENCOUNTER 2024-01-04 09:17 | Inpatient (IN) | payer OTHER, MEDICAID ==
[2024-01-04] MEDS ORDERED: Acetaminophen 500 MG TAB ONE (09:45)
[2024-01-04] MEDS ORDERED: LevoFLOXacin 750 mg/D5W 150 ml Premix Bag ONE (09:45)
[2024-01-04 10:18] LABS: BHCG - Serum Negative (NEGATIVE); Pregs Control Background? CLEAR/WHITE (CLR/WHITE); Pregs Control Bar Appear? YES (CONTROL BAR)
[2024-01-04 10:22] LABS: #Basophils 0.03 10x3/uL (0.0-0.2); #Eosinphils Less than 0.03 10x3/uL (0.0-0.7); %Basophils 0.3 % (0.0-1.0); %Eosinophils 0.1 % (0.0-10.0); %Lymphocytes 13.4 % (21.0-51.0); %Monocytes 4.6 % (0.0-10.0); %Neutrophils 81.3 % (42.0-75.0); Hematocrit 37.7 % (36.0-47.0); Hemoglobin 12.8 g/dL (12.0-16.0); Mean Corpuscular Hemoglobin 28.4 pg (27.0-31.0); Mean Corpuscular Volume 83.8 fL (78.0-98.0); Mean Platelet Volume 12.6 fL (7.4-10.4); Platelet Count 147 10x3/uL (130-400); RBC Distribution Width 14.9 % (11.5-14.5)
[2024-01-04 10:24] LABS: ALT (SGPT) 21 U/L (8-55); AST (SGOT) 34 U/L (5-34); Albumin 3.6 g/dL (3.5-5.0); Alkaline Phosphatase 46 U/L (40-110); Anion Gap 14 mmol/L (10-20); BUN (Urea Nitrogen) 13 mg/dL (7.0-18.7); Bilirubin, Total 0.5 mg/dL (0.2-1.2); Calc. Creatinine Clearance 0 mL/min (70-130); Calcium 8.3 mg/dL (7.8-10.44); Carbon Dioxide 24 mmol/L (22-29); Chloride 96 mmol/L (98-107); Estimated GFR 62; Globulin 3.5 g/dL (2.4-3.5); Glucose 139 mg/dL (70-105); Lipase 23 U/L (8-78); Magnesium 1.9 mg/dL (1.6-2.6); Potassium 3.4 mmol/L (3.5-5.1); Protein, Total 7.1 g/dL (6.0-8.3); Sodium 131 mmol/L (136-145)
[2024-01-04 10:26] LABS: INR-International Normal Ratio 1.1; Prothrombin Time 14.6 sec (12.0-14.7)
[2024-01-04 10:44] LABS: Influenza A by NAA Not Detected (NotDetected); Influenza B by NAA Not Detected (NotDetected); SARS-CoV-2 NAA Rapid Test Not Detected (NotDetected)
[2024-01-04 10:54] LABS: Troponin I Less than 0.010 ng/mL (< 0.028)
[2024-01-04] MEDS ORDERED: Ondansetron PF 4 MG/2 ML Vial IVP PRN (11:31)
[2024-01-04 12:36] VITALS: BMI 39.2
[2024-01-04] MEDS: Magnesium 2 GM/50 ML(in water) 2 GM in Premix 1 BAG IVPB SCH ×2 (13:32→14:24)
[2024-01-04] MEDS: Pantoprazole 40 MG VIAL IVP SCH (13:33)
[2024-01-04] MEDS: Sodium Chloride 0.9% 1,000 ML IV SCH (13:33)
[2024-01-04] MEDS: methylPREDNISolone Sod Succ 40 MG VIAL IVP SCH (13:33)
[2024-01-04 14:02] LABS: Troponin I Less than 0.010 ng/mL (< 0.028)
[2024-01-04] MEDS: Ipratropium/Albuterol 3 ML NEB NEB SCH (14:45)
[2024-01-04 17:20] LABS: Troponin I Less than 0.010 ng/mL (< 0.028)
[2024-01-04] MEDS: Mometasone 200 MCG/Formoterol 5 MCG 120 PUFF INHALER INH SCH (18:58)
[2024-01-04] MEDS: Rosuvastatin 10 MG TAB PO SCH (21:40)
[2024-01-04] MEDS: traZODone HCl 50 MG TAB PO SCH (21:40)
[2024-01-04] MEDS: Acetaminophen 325 MG TAB PO PRN (21:40)
[2024-01-04] MEDS: Clotrimazole 1 % Cream 30 GM TUBE TOP SCH (21:41)
[2024-01-05 05:01] LABS: #Basophils Less than 0.03 10x3/uL (0.0-0.2); #Eosinphils Less than 0.03 10x3/uL (0.0-0.7); %Basophils 0.2 % (0.0-1.0); %Lymphocytes 9.5 % (21.0-51.0); %Monocytes 3.7 % (0.0-10.0); Hematocrit 39.2 % (36.0-47.0); Hemoglobin 12.9 g/dL (12.0-16.0); Mean Corpuscular HGB CONC 32.9 g/dL (32.0-36.0); Mean Corpuscular Hemoglobin 28.9 pg (27.0-31.0); Mean Corpuscular Volume 87.9 fL (78.0-98.0); Mean Platelet Volume 12.5 fL (7.4-10.4); Platelet Count 139 10x3/uL (130-400); RBC Distribution Width 14.8 % (11.5-14.5); Red Blood Cell (RBC) Count 4.46 mill/uL (4.20-5.40)
[2024-01-05 05:12] LABS: Anion Gap 12 mmol/L (10-20); BUN (Urea Nitrogen) 11 mg/dL (7.0-18.7); Calc. Creatinine Clearance 115 mL/min (70-130); Calcium 8.3 mg/dL (7.8-10.44); Carbon Dioxide 26 mmol/L (22-29); Chloride 104 mmol/L (98-107); Estimated GFR 75; Glucose 274 mg/dL (70-105); Potassium 4.1 mmol/L (3.5-5.1); Sodium 138 mmol/L (136-145)
[2024-01-05] MEDS: Levothyroxine 175 MCG TAB PO SCH (06:03)
[2024-01-05] MEDS: Enoxaparin 40 MG (0.4 mL) SYRINGE SC SCH (08:43)
[2024-01-05] MEDS: Montelukast Sodium 10 mg Tablet PO SCH (08:43)
[2024-01-05] MEDS: Aripiprazole 10 MG TAB PO SCH (08:43)
[2024-01-05] MEDS: Pantoprazole 40 MG VIAL IVP SCH (08:44)
[2024-01-05] MEDS ORDERED: Dextrose 50% Abboject 50 ML SYRINGE SLOW IVP PRN (08:56)
[2024-01-05] MEDS ORDERED: Glucagon 1 MG/ML KIT IM PRN (08:56)
[2024-01-05] MEDS ORDERED: Dextrose 5% in Water 1,000 ML IV PRN (08:56)
[2024-01-05] MEDS: LevoFLOXacin 750 mg/D5W 750 MG in Premix 1 BAG IVPB SCH (11:44)
[2024-01-05] MEDS: HumaLOG 300 UNITS/3 ML VIAL SC PRN (16:59)
[2024-01-05] MEDS: Benztropine 1 MG TAB PO SCH (21:43)
[2024-01-05] MEDS: diphenhydrAMINE 25 MG CAP PO SCH (21:43)
[2024-01-06 05:01] LABS: #Basophils Less than 0.03 10x3/uL (0.0-0.2); #Eosinphils Less than 0.03 10x3/uL (0.0-0.7); %Basophils 0.1 % (0.0-1.0); %Lymphocytes 6.2 % (21.0-51.0); %Monocytes 3.6 % (0.0-10.0); %Neutrophils 89.1 % (42.0-75.0); Hematocrit 37.6 % (36.0-47.0); Mean Corpuscular HGB CONC 31.9 g/dL (32.0-36.0); Mean Corpuscular Hemoglobin 27.8 pg (27.0-31.0); Mean Corpuscular Volume 87.2 fL (78.0-98.0); Mean Platelet Volume 12.6 fL (7.4-10.4); Platelet Count 148 10x3/uL (130-400); RBC Distribution Width 14.9 % (11.5-14.5); Red Blood Cell (RBC) Count 4.31 mill/uL (4.20-5.40)
[2024-01-06 05:20] LABS: Anion Gap 15 mmol/L (10-20); BUN (Urea Nitrogen) 9 mg/dL (7.0-18.7); Calc. Creatinine Clearance 114 mL/min (70-130); Calcium 8.2 mg/dL (7.8-10.44); Carbon Dioxide 25 mmol/L (22-29); Chloride 104 mmol/L (98-107); Estimated GFR 74; Glucose 250 mg/dL (70-105); Potassium 4.3 mmol/L (3.5-5.1); Sodium 140 mmol/L (136-145)
[2024-01-06 05:24] LABS: Band 25 % (5-11); Lymphocytes 2 % (21-51); Monocytes 2 % (0-10); Neutrophil 71 % (42-75); Platelet Adequacy Comment Platelets Normal; Polychromasia SLIGHT = 2-3 cells HPF (0-2)
[2024-01-06] MEDS: Sertraline 100 MG TAB PO SCH (09:42)
[2024-01-06] MEDS ORDERED: Nystatin Powder 15 GM BOT TOP PRN (10:33)
[2024-01-06 12:13] VITALS: TEMP 97.1
[2024-01-06] MEDS: Nystatin 500,000 UNITS/5 ML UDCUP SSW SCH (13:00)
[2024-01-06 15:54] VITALS: BP 119/87
== END 2024-01-06 17:10 | disposition home or self-care (01) | DRG 871 ==
LOC: ERS 09:17 → 2NO 11:07
PROVIDERS: ADMIT Family Medicine; ATTEND Internal Medicine
DX: A41.9 Sepsis, unspecified organism (principal); J18.9 Pneumonia, unspecified organism; J96.21 Acute and chronic respiratory failure with hypoxia; J44.1 Chronic obstructive pulmonary disease with (acute) exacerbation; Z88.1 Allergy status to other antibiotic agents; Z88.0 Allergy status to penicillin; Z88.2 Allergy status to sulfonamides; Z79.899 Other long term (current) drug therapy; I10 Essential (primary) hypertension; E78.00 Pure hypercholesterolemia, unspecified; K21.9 Gastro-esophageal reflux disease without esophagitis; F17.210 Nicotine dependence, cigarettes, uncomplicated; R50.9 Fever, unspecified; E03.9 Hypothyroidism, unspecified; Z82.49 Family history of ischemic heart disease and other diseases of the circulatory system
CPT/HCPCS: 36415; 36416; 71045; 71046; 71275; 80048; 80053; 83036; 83605; 83690; 83735; 83880; 84484; 84703; 85025; 85610; 85730; 87040; 93005; 94640; 94664; 96365; C9113; J1650; J1815; J1956; J2920; J3475; J7050; J7620

== ENCOUNTER 2024-05-23 19:00 | Emergency (ER) | payer OTHER ==
[~2024-05-23 19:00] MED LIST changes: -Iopamidol-370 76% 500 ML 1 ML ONE; +Iopamidol-370 76% 500 ML MDV (1 ML CHARGE) ONE
[2024-05-23 19:57] LABS: Actual Bicarbonate (HCO3v) 30.1 mEq/L (22-28); Analyzer IN Cardio ER; Base Excess 3.9 mEq/L (-2.0 to +3.0); Calcium, Ionized (venous) 1.09 mmol/L (1.16-1.32); Chloride (VBG) 98 mmol/L (98-106); Hematocrit-VBG 42 % (36.0-47.0); Hemoglobin (Hb) 14.2 g/dL (11.7-15.5); Potassium (VBG) 3.87 mmol/L (3.70-5.30); Sodium 139 mmol/L (133-146); pH (venous) 7.385 (7.32-7.43)
[2024-05-23 19:58] LABS: #Basophils 0.08 10x3/uL (0.0-0.2); %Basophils 0.7 % (0.0-1.0); %Eosinophils 4.2 % (0.0-10.0); %Lymphocytes 24.3 % (21.0-51.0); %Monocytes 4.7 % (0.0-10.0); %Neutrophils 65.7 % (42.0-75.0); Hematocrit 41.1 % (36.0-47.0); Hemoglobin 13.1 g/dL (12.0-16.0); Mean Corpuscular HGB CONC 31.9 g/dL (32.0-36.0); Mean Corpuscular Hemoglobin 29.2 pg (27.0-31.0); Mean Corpuscular Volume 91.5 fL (78.0-98.0); Mean Platelet Volume 11.1 fL (7.4-10.4); Platelet Count 219 10x3/uL (130-400); RBC Distribution Width 13.2 % (11.5-14.5); Red Blood Cell (RBC) Count 4.49 mill/uL (4.20-5.40)
[2024-05-23 20:06] LABS: BHCG - Serum Negative (NEGATIVE); Pregs Control Background? CLEAR/WHITE (CLR/WHITE); Pregs Control Bar Appear? YES (CONTROL BAR)
[2024-05-23 20:12] LABS: ALT (SGPT) 19 U/L (8-55); AST (SGOT) 21 U/L (5-34); Acetaminophen Less than 10 mcg/mL (Less than 10); Albumin 3.7 g/dL (3.5-5.0); Alcohol Less than 10.0 mg/dL (Less than 10); Alkaline Phosphatase 69 U/L (40-110); Anion Gap 13 mmol/L (10-20); BUN (Urea Nitrogen) 12 mg/dL (7.0-18.7); Bilirubin, Total 0.2 mg/dL (0.2-1.2); Calc. Creatinine Clearance 0 mL/min (70-130); Calcium 8.8 mg/dL (7.8-10.44); Carbon Dioxide 31 mmol/L (22-29); Chloride 100 mmol/L (98-107); Estimated GFR 72; Globulin 3.3 g/dL (2.4-3.5); Glucose 113 mg/dL (70-105); Lipase 40 U/L (8-78); Magnesium 2.1 mg/dL (1.6-2.6); Potassium 3.9 mmol/L (3.5-5.1); Salicylate Less than 8.0 mg/dL (Less than 8.0); Sodium 140 mmol/L (136-145)
[2024-05-23 20:18] LABS: Troponin I Less than 0.010 ng/mL (< 0.028)
[2024-05-23 20:26] LABS: PTT 30.7 sec (22.9-36.1); Prothrombin Time 12.8 sec (12.0-14.7)
[2024-05-23 21:09] LABS: Free T4 (Free Thyroxine) 0.61 ng/dL (0.70-1.48)
[2024-05-23 22:08] LABS: Amphetamine Not Detected (NotDetected); Barbiturates Screen Not Detected (NotDetected); Benzodiazepine Screen Not Detected (NotDetected); Cocaine Metabolite Screen Not Detected (NotDetected); Methadone Not Detected (NotDetected); Methamphetamine Not Detected (NotDetected); Opiate Screen Not Detected (NotDetected); Oxycodone Screen Not Detected (NotDetected); Phencyclidine (PCP) Not Detected (NotDetected); THC/Cannabinoid Screen Not Detected (NotDetected); Tricyclic Screen Not Detected (NotDetected)
[2024-05-23 22:13] LABS: Bilirubin Negative (Negative); Blood, Urine 3+ (Negative); CAUTI Indications for Culture Immunosuppressed; Clarity Turbid (Clear); Glucose, Urine (Dipstick) Normal (Negative); Ketone, Urine Negative (Negative); Leukocyte 25 Leu/uL (Negative); Nitrite Negative (Negative); Protein, Urine (Dipstick) 10 mg/dL (Neg-Trace); RBC/HPF Greater than 50 HPF (0-3); Specific Gravity, Urine 1.008 (1.002-1.036); Urobilinogen Normal mg/dL (Less than 2); pH, Urine 6.5 (5.0-9.0)
[2024-05-23 22:32] LABS: Bacteria/HPF 1+ HPF (None Seen)
[2024-05-23 22:33] LABS: Urine Culture Reflex No No; Urine Culture Reflex Yes Yes
[2024-05-23] MEDS ORDERED: Ciprofloxacin 500 MG TAB ONE (22:56)
== END 2024-05-23 23:10 | disposition home or self-care (01) ==
LOC: ERS 19:00
DX: N39.0 Urinary tract infection, site not specified (principal); R53.1 Weakness; I10 Essential (primary) hypertension; E78.00 Pure hypercholesterolemia, unspecified; J44.9 Chronic obstructive pulmonary disease, unspecified; F17.210 Nicotine dependence, cigarettes, uncomplicated; Z79.899 Other long term (current) drug therapy
CPT/HCPCS: 36415; 70496; 70498; 71045; 80053; 80306; 80307; 81001; 82805; 83690; 83735; 83880; 84439; 84443; 84481; 84484; 84703; 85025; 85610; 85730; 87086; 93005; Q9967

== ENCOUNTER 2024-07-31 04:25 | Emergency (ER) | payer OTHER ==
[2024-07-31] MEDS ORDERED: Ondansetron ODT 4 MG TAB ONE (04:40)
== END 2024-07-31 06:17 | disposition home or self-care (01) ==
LOC: ERS 04:25
DX: N61.1 Abscess of the breast and nipple (principal); B37.2 Candidiasis of skin and nail; R11.0 Nausea; I10 Essential (primary) hypertension; J44.9 Chronic obstructive pulmonary disease, unspecified; F17.210 Nicotine dependence, cigarettes, uncomplicated
CPT/HCPCS: 99283; Q0162

== ENCOUNTER 2025-03-17 18:37 | Emergency (ER) | payer MEDICAID, MEDICARE ==
[2025-03-17] MEDS ORDERED: predniSONE 20 MG TAB ONE (20:04)
== END 2025-03-17 20:10 | disposition home or self-care (01) ==
LOC: ERS 18:37
DX: S00.521A Blister (nonthermal) of lip, initial encounter (principal); J44.9 Chronic obstructive pulmonary disease, unspecified; I10 Essential (primary) hypertension; E11.9 Type 2 diabetes mellitus without complications; F17.210 Nicotine dependence, cigarettes, uncomplicated; X58.XXXA Exposure to other specified factors, initial encounter
CPT/HCPCS: 99282; J7512; Q0162

== ENCOUNTER 2025-03-18 00:12 | Emergency (ER) | payer MEDICARE | END 2025-03-18 00:51 | disposition home or self-care (01) | LOC: ERS 00:12 | DX: J44.9 Chronic obstructive pulmonary disease, unspecified (principal); I10 Essential (primary) hypertension; E11.9 Type 2 diabetes mellitus without complications; F17.210 Nicotine dependence, cigarettes, uncomplicated | CPT/HCPCS: J7620 ==

== ENCOUNTER 2025-03-23 04:00 | Emergency (ER) | payer MEDICARE | END 2025-03-23 07:55 | disposition home or self-care (01) | LOC: ERS 04:00 | DX: K13.0 Diseases of lips (principal); J44.9 Chronic obstructive pulmonary disease, unspecified; E11.9 Type 2 diabetes mellitus without complications; I10 Essential (primary) hypertension; F17.210 Nicotine dependence, cigarettes, uncomplicated | CPT/HCPCS: 10060; J7620 ==

== ENCOUNTER 2025-03-28 15:28 | Emergency (ER) | payer MEDICARE, MEDICAID ==
[2025-03-28] MEDS ORDERED: Dexamethasone 4 MG TAB ONE (16:23)
[2025-03-28] MEDS ORDERED: levETIRAcetam 500 MG (5 mL) VIAL ONE (16:23)
[2025-03-28 16:47] LABS: #Basophils 0.06 10x3/uL (0.0-0.2); #Eosinophils 0.27 10x3/uL (0.0-0.7); #Monocytes 0.57 10x3/uL (0.11-0.59); #Neutrophils 8.15 10x3/uL (1.40-6.50); %Basophils 0.5 % (0.0-1.0); %Eosinophils 2.3 % (0.0-10.0); %Lymphocytes 23.0 % (21.0-51.0); %Monocytes 4.8 % (0.0-10.0); %Neutrophils 68.8 % (42.0-75.0); Hematocrit 35.9 % (36.0-47.0); Hemoglobin 11.2 g/dL (12.0-16.0); Mean Corpuscular Hemoglobin 28.6 pg (27.0-31.0); Mean Corpuscular Volume 91.8 fL (78.0-98.0); Platelet Count 161 10x3/uL (130-400); Red Blood Cell (RBC) Count 3.91 mill/uL (4.20-5.40); White Blood Cell (WBC) Count 11.85 10x3/uL (4.8-10.8)
[2025-03-28 16:57] LABS: BHCG - Serum Negative (NEGATIVE); Pregs Control Background? CLEAR/WHITE (CLR/WHITE); Pregs Control Bar Appear? YES (CONTROL BAR)
[2025-03-28 17:04] LABS: ALT (SGPT) 17 U/L (Less than 34); AST (SGOT) 19 U/L (11-34); Albumin 3.7 g/dL (3.1-4.5); Alkaline Phosphatase 69 U/L (40-110); Anion Gap 14 mmol/L (10-20); BUN (Urea Nitrogen) 15 mg/dL (7.0-18.7); Bilirubin, Total 0.1 mg/dL (0.3-1.2); Calc. Creatinine Clearance 0 mL/min (70-130); Calcium 8.7 mg/dL (7.8-10.44); Carbon Dioxide 28 mmol/L (22-29); Chloride 103 mmol/L (98-107); Globulin 3.0 g/dL (2.4-3.5); Glucose 99 mg/dL (70-105); Potassium 4.1 mmol/L (3.5-5.1); Sodium 141 mmol/L (136-145)
[2025-03-28 17:06] LABS: Acetaminophen Less than 10 mcg/mL (Less than 10); Salicylate Less than 8.0 mg/dL (Less than 8.0)
[2025-03-28 18:28] LABS: Pregnancy Test - Urine (BHCG) Negative (Negative); Pregu Control Background? CLEAR/WHITE (CLR/WHITE); Pregu Control Bar Appear? YES (CONTROL BAR)
[2025-03-28 18:43] LABS: Cocaine Metabolite Screen Negative (Negative); THC/Cannabinoid Screen Negative (Negative); Tricyclic Screen Negative (Negative)
[2025-03-28 18:55] LABS: Specific Gravity, Urine 1.015 (1.005-1.030)
[2025-03-28 18:58] LABS: CAUTI Indications for Culture Alt mental st,lethar; Glucose, Urine (Dipstick) Unable to Interpret mg/dL (Negative); Leukocyte Unable to Interpret (Negative); Protein, Urine (Dipstick) Unable to Interpret mg/dL (Neg-Trace); RBC/HPF Greater than 50 HPF (0-3)
[2025-03-28 18:59] LABS: Bacteria/HPF Rare-Few HPF (None Seen)
[2025-03-28 19:00] LABS: Urine Culture Reflex Yes Yes
== END 2025-03-28 20:12 | disposition home or self-care (01) ==
LOC: ERS 15:28
DX: R56.9 Unspecified convulsions (principal); J45.909 Unspecified asthma, uncomplicated; N39.0 Urinary tract infection, site not specified; I10 Essential (primary) hypertension; E78.5 Hyperlipidemia, unspecified; K21.9 Gastro-esophageal reflux disease without esophagitis; E11.9 Type 2 diabetes mellitus without complications; F17.210 Nicotine dependence, cigarettes, uncomplicated; Z79.899 Other long term (current) drug therapy
CPT/HCPCS: 71045; 80053; 80177; 80306; 80307; 81001; 81025; 84146; 84703; 85025; 87086; J1953; 36415; 96365; 96366; J7620; J8540

== ENCOUNTER 2025-03-30 15:57 | Inpatient (IN) | payer MEDICARE, MEDICAID ==
[2025-03-30 16:54] LABS: #Basophils 0.04 10x3/uL (0.0-0.2); #Eosinophils 0.04 10x3/uL (0.0-0.7); #Monocytes 1.06 10x3/uL (0.11-0.59); #Neutrophils 15.29 10x3/uL (1.40-6.50); %Basophils 0.2 % (0.0-1.0); %Eosinophils 0.2 % (0.0-10.0); %Lymphocytes 16.2 % (21.0-51.0); %Monocytes 5.4 % (0.0-10.0); %Neutrophils 77.2 % (42.0-75.0); Hematocrit 34.4 % (36.0-47.0); Hemoglobin 11.0 g/dL (12.0-16.0); Mean Corpuscular Hemoglobin 28.9 pg (27.0-31.0); Mean Corpuscular Volume 90.3 fL (78.0-98.0); Platelet Count 183 10x3/uL (130-400); Red Blood Cell (RBC) Count 3.81 mill/uL (4.20-5.40); White Blood Cell (WBC) Count 19.80 10x3/uL (4.8-10.8)
[2025-03-30 17:10] LABS: ALT (SGPT) 18 U/L (Less than 34); AST (SGOT) 17 U/L (11-34); Albumin 3.8 g/dL (3.1-4.5); Alkaline Phosphatase 63 U/L (40-110); Anion Gap 14 mmol/L (10-20); BUN (Urea Nitrogen) 21 mg/dL (7.0-18.7); Bilirubin, Total 0.1 mg/dL (0.3-1.2); Calc. Creatinine Clearance 0 mL/min (70-130); Calcium 9.1 mg/dL (7.8-10.44); Carbon Dioxide 29 mmol/L (22-29); Chloride 102 mmol/L (98-107); Globulin 3.1 g/dL (2.4-3.5); Glucose 121 mg/dL (70-105); Potassium 3.8 mmol/L (3.5-5.1); Sodium 141 mmol/L (136-145)
[2025-03-30 19:38] LABS: CAUTI Indications for Culture Alt mental st,lethar; Glucose, Urine (Dipstick) Normal (Negative); Leukocyte 250 Leu/uL (Negative); Pregnancy Test - Urine (BHCG) Negative (Negative); Pregu Control Background? CLEAR/WHITE (CLR/WHITE); Pregu Control Bar Appear? YES (CONTROL BAR); Protein, Urine (Dipstick) 10 mg/dL (Neg-Trace); RBC/HPF Greater than 50 HPF (0-3); Specific Gravity, Urine 1.012 (1.002-1.036); WBC/HPF 21-50 HPF (0-3)
[2025-03-30 19:42] LABS: Bacteria/HPF 1+ HPF (None Seen)
[2025-03-30 19:43] LABS: Urine Culture Reflex Yes Yes
[2025-03-31 00:34] VITALS: BMI 37.8
[2025-03-31] MEDS ORDERED: Glucagon 1 MG/ML KIT IM PRN (01:10)
[2025-03-31] MEDS ORDERED: Dextrose 50% Abboject 50 ML SYRINGE SLOW IVP PRN (01:10)
[2025-03-31 05:44] LABS: #Basophils Less than 0.03 10x3/uL (0.0-0.2); #Eosinophils Less than 0.03 10x3/uL (0.0-0.7); #Monocytes 0.59 10x3/uL (0.11-0.59); #Neutrophils 14.14 10x3/uL (1.40-6.50); %Basophils 0.1 % (0.0-1.0); %Eosinophils 0.0 % (0.0-10.0); %Lymphocytes 7.9 % (21.0-51.0); %Monocytes 3.7 % (0.0-10.0); %Neutrophils 87.6 % (42.0-75.0); Hematocrit 34.2 % (36.0-47.0); Hemoglobin 10.8 g/dL (12.0-16.0); Mean Corpuscular Hemoglobin 28.8 pg (27.0-31.0); Mean Corpuscular Volume 91.2 fL (78.0-98.0); Platelet Count 173 10x3/uL (130-400); Red Blood Cell (RBC) Count 3.75 mill/uL (4.20-5.40); White Blood Cell (WBC) Count 16.13 10x3/uL (4.8-10.8)
[2025-03-31 06:05] LABS: ALT (SGPT) 16 U/L (Less than 34); AST (SGOT) 15 U/L (11-34); Albumin 3.6 g/dL (3.1-4.5); Alkaline Phosphatase 65 U/L (40-110); Anion Gap 13 mmol/L (10-20); BUN (Urea Nitrogen) 19 mg/dL (7.0-18.7); Bilirubin, Total 0.1 mg/dL (0.3-1.2); Calc. Creatinine Clearance 109 mL/min (70-130); Calcium 8.9 mg/dL (7.8-10.44); Carbon Dioxide 30 mmol/L (22-29); Chloride 100 mmol/L (98-107); Globulin 2.8 g/dL (2.4-3.5); Glucose 202 mg/dL (70-105); Potassium 4.3 mmol/L (3.5-5.1); Sodium 139 mmol/L (136-145)
[2025-03-31] MEDS: Sertraline 100 MG TAB PO SCH (08:18)
[2025-03-31] MEDS: Rosuvastatin 10 MG TAB PO SCH (08:18)
[2025-03-31] MEDS: Pantoprazole 40 MG DR.TAB PO SCH (08:18)
[2025-03-31] MEDS: Lisinopril 20 MG TAB PO SCH (08:18)
[2025-03-31] MEDS: Enoxaparin 40 MG (0.4 mL) SYRINGE SC SCH (08:18)
[2025-03-31] MEDS: Benztropine 1 MG TAB PO SCH (08:21)
[2025-03-31] MEDS ORDERED: Non-Formulary Item 1 EACH (Glycopyrrolate/Formoterol Fum [Bevespi Aerosphere Inhaler] 10. INH SCH (09:00)
[2025-03-31 12:16] VITALS: BP 113/74; TEMP 98.3
[2025-03-31] MEDS ORDERED: Benztropine 1 MG TAB PO SCH (21:00)
[2025-03-31] MEDS ORDERED: Clotrimazole 1 % Cream 30 GM TUBE TOP SCH (21:00)
== END 2025-03-31 19:30 | disposition home or self-care (01) | DRG 193 ==
LOC: ERS 15:57 → T4-B 22:18
PROVIDERS: ADMIT Student in an Organized Health Care Education/Training Program; ATTEND Student in an Organized Health Care Education/Training Program
DX: J18.9 Pneumonia, unspecified organism (principal); J96.01 Acute respiratory failure with hypoxia; J44.0 Chronic obstructive pulmonary disease with (acute) lower respiratory infection; J44.1 Chronic obstructive pulmonary disease with (acute) exacerbation; I10 Essential (primary) hypertension; E03.9 Hypothyroidism, unspecified; F25.9 Schizoaffective disorder, unspecified; K21.9 Gastro-esophageal reflux disease without esophagitis; G47.30 Sleep apnea, unspecified; F17.210 Nicotine dependence, cigarettes, uncomplicated; J45.909 Unspecified asthma, uncomplicated; E11.65 Type 2 diabetes mellitus with hyperglycemia; Z99.81 Dependence on supplemental oxygen; Z98.890 Other specified postprocedural states; Z88.1 Allergy status to other antibiotic agents; Z88.0 Allergy status to penicillin; Z88.2 Allergy status to sulfonamides; Z91.013 Allergy to seafood; Z88.8 Allergy status to other drugs, medicaments and biological substances; Z91.012 Allergy to eggs; Z79.899 Other long term (current) drug therapy; Z79.84 Long term (current) use of oral hypoglycemic drugs; Z79.890 Hormone replacement therapy
CPT/HCPCS: 36415; 36416; 71045; 71275; 80053; 80177; 80306; 80307; 81001; 81025; 82306; 84145; 84146; 84484; 84703; 85025; 87077; 87086; 87428; 93005; 94640; 94760; 96365; 96366; 96374; J1650; J1815; J1953; J2919; J7620; J8540; Q9967

== ENCOUNTER 2025-05-08 16:53 | Emergency (ER) | payer MEDICARE, MEDICAID ==
[2025-05-08] MEDS ORDERED: Albuterol 2.5 MG (0.5 mL) NEB ONE (17:27)
[2025-05-08] MEDS ORDERED: Magnesium 2 GM/50 ML BAG (IN WATER) ONE (17:27)
[2025-05-08] MEDS ORDERED: Ipratropium Bromide 2.5 ml Neb ONE (17:27)
[2025-05-08 18:15] LABS: #Basophils 0.07 10x3/uL (0.0-0.2); #Eosinophils 0.28 10x3/uL (0.0-0.7); #Monocytes 0.72 10x3/uL (0.11-0.59); #Neutrophils 8.20 10x3/uL (1.40-6.50); %Basophils 0.6 % (0.0-1.0); %Eosinophils 2.2 % (0.0-10.0); %Lymphocytes 26.3 % (21.0-51.0); %Monocytes 5.7 % (0.0-10.0); %Neutrophils 64.8 % (42.0-75.0); Hematocrit 37.0 % (36.0-47.0); Hemoglobin 11.8 g/dL (12.0-16.0); Mean Corpuscular Hemoglobin 28.8 pg (27.0-31.0); Mean Corpuscular Volume 90.2 fL (78.0-98.0); Platelet Count 171 10x3/uL (130-400); Red Blood Cell (RBC) Count 4.10 mill/uL (4.20-5.40); White Blood Cell (WBC) Count 12.65 10x3/uL (4.8-10.8)
[2025-05-08 18:41] LABS: ALT (SGPT) 13 U/L (Less than 34); AST (SGOT) 21 U/L (11-34); Albumin 3.8 g/dL (3.1-4.5); Anion Gap 17 mmol/L (10-20); BUN (Urea Nitrogen) 17 mg/dL (7.0-18.7); Bilirubin, Total 0.2 mg/dL (0.3-1.2); Calc. Creatinine Clearance 0 mL/min (70-130); Calcium 8.8 mg/dL (7.8-10.44); Carbon Dioxide 26 mmol/L (22-29); Chloride 102 mmol/L (98-107); Globulin 3.1 g/dL (2.4-3.5); Glucose 134 mg/dL (70-105); Potassium 3.9 mmol/L (3.5-5.1); Sodium 141 mmol/L (136-145)
[2025-05-08 18:50] LABS: Alkaline Phosphatase 71 U/L (40-110)
[2025-05-08 20:51] LABS: CAUTI Indications for Culture Pelvic or flank pain; Glucose, Urine (Dipstick) Normal (Negative); Leukocyte 25 Leu/uL (Negative); Protein, Urine (Dipstick) Negative (Neg-Trace); RBC/HPF None Seen HPF (0-3); Specific Gravity, Urine 1.050 (1.002-1.036); WBC/HPF 0-3 HPF (0-3)
[2025-05-08 21:04] LABS: Bacteria/HPF 2+ HPF (None Seen)
[2025-05-08 21:05] LABS: Urine Culture Reflex No No
== END 2025-05-08 20:17 | disposition home or self-care (01) ==
LOC: ERS 16:53
DX: J44.1 Chronic obstructive pulmonary disease with (acute) exacerbation (principal); G47.33 Obstructive sleep apnea (adult) (pediatric); I10 Essential (primary) hypertension; E03.9 Hypothyroidism, unspecified; F20.9 Schizophrenia, unspecified; E11.9 Type 2 diabetes mellitus without complications; E78.00 Pure hypercholesterolemia, unspecified; K21.9 Gastro-esophageal reflux disease without esophagitis; F17.210 Nicotine dependence, cigarettes, uncomplicated; Z79.890 Hormone replacement therapy; Z55.6 Problems related to health literacy; Z79.899 Other long term (current) drug therapy; Z79.51 Long term (current) use of inhaled steroids; Z79.2 Long term (current) use of antibiotics
CPT/HCPCS: 71045; 71275; 80053; 81001; 84484; 85025; 85379; 87428; 93005; J2919; J3475; J7644; 96365; 96366; 96375; J7611; Q9967

== ENCOUNTER 2025-05-25 17:49 | Emergency (ER) | payer OTHER ==
[2025-05-25 19:12] LABS: #Basophils 0.06 10x3/uL (0.0-0.2); #Eosinophils 0.29 10x3/uL (0.0-0.7); #Monocytes 0.80 10x3/uL (0.11-0.59); #Neutrophils 10.14 10x3/uL (1.40-6.50); %Basophils 0.4 % (0.0-1.0); %Eosinophils 2.0 % (0.0-10.0); %Lymphocytes 23.1 % (21.0-51.0); %Monocytes 5.4 % (0.0-10.0); %Neutrophils 68.6 % (42.0-75.0); Hematocrit 37.9 % (36.0-47.0); Hemoglobin 11.7 g/dL (12.0-16.0); Mean Corpuscular Hemoglobin 28.5 pg (27.0-31.0); Mean Corpuscular Volume 92.4 fL (78.0-98.0); Platelet Count 175 10x3/uL (130-400); Red Blood Cell (RBC) Count 4.10 mill/uL (4.20-5.40); White Blood Cell (WBC) Count 14.77 10x3/uL (4.8-10.8)
[2025-05-25] MEDS ORDERED: Fluconazole 100 MG TAB ONE (19:17)
[2025-05-25 19:30] LABS: BHCG - Serum Negative (NEGATIVE); Pregs Control Background? CLEAR/WHITE (CLR/WHITE); Pregs Control Bar Appear? YES (CONTROL BAR)
[2025-05-25 19:32] LABS: ALT (SGPT) 18 U/L (Less than 34); AST (SGOT) 20 U/L (11-34); Albumin 3.7 g/dL (3.1-4.5); Alkaline Phosphatase 65 U/L (40-110); Anion Gap 13 mmol/L (10-20); BUN (Urea Nitrogen) 24 mg/dL (7.0-18.7); Bilirubin, Total 0.1 mg/dL (0.3-1.2); Calc. Creatinine Clearance 0 mL/min (70-130); Calcium 8.9 mg/dL (7.8-10.44); Carbon Dioxide 30 mmol/L (22-29); Chloride 100 mmol/L (98-107); Globulin 3.1 g/dL (2.4-3.5); Glucose 92 mg/dL (70-105); Potassium 4.1 mmol/L (3.5-5.1); Sodium 139 mmol/L (136-145)
== END 2025-05-25 22:38 | disposition home or self-care (01) ==
LOC: ERS 17:49
DX: J44.1 Chronic obstructive pulmonary disease with (acute) exacerbation (principal); R10.31 Right lower quadrant pain; B37.9 Candidiasis, unspecified; E11.9 Type 2 diabetes mellitus without complications; I10 Essential (primary) hypertension; F17.210 Nicotine dependence, cigarettes, uncomplicated
CPT/HCPCS: 36415; 71045; 74177; 80053; 84703; 85025; 96374; 96375; J2270; J2919

== ENCOUNTER 2025-06-19 11:40 | Emergency (ER) | payer MEDICAID, OTHER ==
[2025-06-19] MEDS ORDERED: Dexamethasone 4 MG TAB ONE (12:23)
[2025-06-19] MEDS ORDERED: Albuterol 2.5 MG (0.5 mL) NEB ONE (12:26)
[2025-06-19] MEDS ORDERED: Ipratropium Bromide 2.5 ml Neb ONE ×2 (12:26→12:27)
== END 2025-06-19 13:16 | disposition home or self-care (01) ==
LOC: ERS 11:40
DX: J44.1 Chronic obstructive pulmonary disease with (acute) exacerbation (principal); G89.29 Other chronic pain; M25.562 Pain in left knee; I10 Essential (primary) hypertension; E11.9 Type 2 diabetes mellitus without complications; F17.210 Nicotine dependence, cigarettes, uncomplicated
CPT/HCPCS: 71045; 93005; J7611; J7644; J8540